=== PATIENT | female | born 1950 | race Caucasian/White ===

== ENCOUNTER 2016-06-22 11:19 | Inpatient (IN) | payer OTHER, MEDICARE ==
[~2016-06-22] VITALS: Ht 167.6 cm; Wt 110.0 kg
[2016-06-22] VITALS (9 sets, daily range): BP systolic 89–136; BP diastolic 58–70; PULSE 68–92; RESP 16–18; TEMP 98.3–98.7; O2SAT 92–96
[~2016-06-22 11:19] MED LIST: CLIN150 PO; METH40TA9 PO
[2016-06-22] MEDS ORDERED: CLINDAMYCIN INJ 600 MG in SODIUM CHLORIDE 0.9% INJ 100 ML IV ONE (12:00)
[2016-06-22] MEDS ORDERED: SODIUM CHLORID 0.9% 500 ML INJ 500 ML IV ONE (12:00)
[2016-06-22] MEDS ORDERED: METH40TA PO (12:06)
[2016-06-22] MEDS ORDERED: AMLO5TAB2 PO (12:06)
[2016-06-22] MEDS ORDERED: DOXY100C PO (12:06)
--- NOTE | 2016-06-22 12:09 | PD ---
HPI Chief Complaint: Complaint Time Seen by Provider: 11:47 Travel History International Travel<30 days: No Contact w/Intl Traveler<30days: No Traveled to known affect area: No History of Present Illness HPI The patient is a 66-year-old female who presents emergency department for multiple complaints. The patient notes multiple skin lesions or last several weeks with one on the lateral aspect of the right breast. She now notes surrounding erythema and redness. The patient was seen by her primary physician and placed on antibiotics. The patient states the redness is not gotten worse, has slightly improved, but is still persistent. She denies any drainage from the wound of the lateral aspect of the right breast. She also complains of dysuria and suprapubic discomfort over the last 24 hours. She does have a history of bladder prolapse and has been referred to see a urologist. However, she does complain of suprapubic discomfort, dysuria, frequency, and urgency. The patient denies any fever, chills, or sweats. The patient's primary physician is Dr. Christian Contreras. [facility] Past Medical History Anxiety: Yes Depression: Yes Cardiovascular Problems: Yes (htn on meds) Diminished Hearing: No Hypertension: Yes Tetanus Vaccination: Unknown Influenza Vaccination: No ?: Not Past Surgical History Hysterectomy: Yes Tonsillectomy: Yes Social History Alcohol Use: No Tobacco Use: Yes (1 PPD) Substance Use: No Allergies-Medications (Allergen,Severity, Reaction): Coded Allergies: No Known Allergies (Verified , 06/22/16) Reported Meds & Prescriptions Reported Meds & Active Scripts Active Reported Doxycycline Hyclate 100 Mg Cap 100 Mg PO DIRECTED Amlodipine (Amlodipine Besylate) 5 Mg Tab 5 Mg PO DAILY Methadone (Methadone HCl) 40 Mg Tab 110 Mg PO DAILY Review of Systems Except as stated in HPI: all other systems reviewed are Neg General / Constitutional: No: Fever Cardiovascular: No: Chest Pain or Discomfort Respiratory: No: Shortness of Breath Gastrointestinal: No: Nausea, Vomiting Genitourinary: Positive: Urgency, Frequency, Dysuria, Pelvic Pain (suprapubic discomfort) Skin: Positive Other (as noted in history of present illness) Physical Exam Narrative GENERAL: Awake, alert, 66-year-old female who appears her stated age and is in no acute respiratory distress. SKIN: Multiple impetigo-like lesions on the arms and legs bilaterally. HEAD: Atraumatic. Normocephalic. EYES: No injection or drainage. ENT: No nasal bleeding or discharge. Poor dentition. NECK: Trachea midline. No JVD. CARDIOVASCULAR: Regular rate and rhythm. No murmur appreciated. Heart rate in the 90s. RESPIRATORY: No accessory muscle use. Clear to auscultation. Breath sounds equal bilaterally. Breast: The exam was performed in the presence of a female nurse. Patient has erythema over the lateral aspect the right breast with erythema that spreads at the medial aspect of the right arm. Mild induration but no focal abscess palpated. GASTROINTESTINAL: Abdomen soft, mild suprapubic tenderness. MUSCULOSKELETAL: No obvious deformities. No clubbing. No cyanosis. No edema. NEUROLOGICAL: Awake and alert. No obvious cranial nerve deficits. Motor grossly within normal limits. Normal speech. PSYCHIATRIC: Appropriate mood and affect; insight and judgment normal. Data Data Last Documented VS Vital Signs Date Time Temp Pulse Resp B/P Pulse Ox O2 Delivery O2 Flow Rate FiO2 06/22/16 11:35 98.7 92 16 126/64 96 Orders Complete Blood Count With Diff (06/22/16 11:55) Comprehensive Metabolic Panel (06/22/16 11:55) Blood Culture (06/22/16 11:55) Lactic Acid (06/22/16 11:55) Urinalysis - C+S If Indicated (06/22/16 11:55) Clindamycin Inj (Cleocin Inj) (06/22/16 12:00) Sodium Chlorid 0.9% 500 Ml Inj (Ns 500 M (06/22/16 12:00) Us Breast Unilateral (06/22/16 ) Piperacil-Tazo 2.25 Gm Premix (Zosyn 2.2 (06/22/16 14:00) Vancomycin Inj (Vancomycin Inj) (06/22/16 14:00) Sodium Chlor 0.9% 1000 Ml Inj (Ns 1000 M (06/22/16 14:00) Sodium Chlor 0.9% 1000 Ml Inj (Ns 1000 M (06/22/16 14:00) Admit Order (Ed Use Only) (06/22/16 14:27) Urinary Catheter Insert/Apply (06/22/16 14:27) Labs Laboratory Tests Test 06/22/16 12:15 White Blood Count 33.5 TH/MM3 Red Blood Count 3.82 MIL/MM3 Hemoglobin 11.4 GM/DL Hematocrit 33.4 % Mean Corpuscular Volume 87.3 FL Mean Corpuscular Hemoglobin 29.8 PG Mean Corpuscular Hemoglobin 34.1 % Concent Red Cell Distribution Width 15.0 % Platelet Count 399 TH/MM3 Mean Platelet Volume 7.7 FL Neutrophils (%) (Auto) % Lymphocytes (%) (Auto) % Monocytes (%) (Auto) % Eosinophils (%) (Auto) % Basophils (%) (Auto) % Neutrophils # (Auto) TH/MM3 Lymphocytes # (Auto) TH/MM3 Monocytes # (Auto) TH/MM3 Eosinophils # (Auto) TH/MM3 Basophils # (Auto) TH/MM3 CBC Comment AUTO DIFF Differential Total Cells 100 Counted Neutrophils % (Manual) 78 % Band Neutrophils % 13 % Lymphocytes % 3 % Monocytes % 4 % Neutrophils # (Manual) 31.2 TH/MM3 Metamyelocytes 2 % Differential Comment FINAL DIFF MANUAL Platelet Estimate NORMAL Platelet Morphology Comment NORMAL Sodium Level 135 MEQ/L Potassium Level 3.2 MEQ/L Chloride Level 96 MEQ/L Carbon Dioxide Level 24.6 MEQ/L Anion Gap 14 MEQ/L Blood Urea Nitrogen 68 MG/DL Creatinine 4.00 MG/DL Estimat Glomerular Filtration 11 ML/MIN Rate Random Glucose 82 MG/DL Lactic Acid Level 0.9 mmol/L Calcium Level 8.4 MG/DL Total Bilirubin 1.1 MG/DL Aspartate Amino Transf 17 U/L (AST/SGOT) Alanine Aminotransferase 25 U/L (ALT/SGPT) Alkaline Phosphatase 195 U/L Total Protein 7.3 GM/DL Albumin 2.5 GM/DL MDM Medical Decision Making Medical Screen Exam Complete: Yes Emergency Medical Condition: Yes Medical Record Reviewed: Yes Interpretation(s) Last Impressions Breast Ultrasound 06/22/16 0000 Signed Impressions: Service Date/Time: June 13:18 - CONCLUSION: 1. Phlegmonous mass in the right breast associated with edema and inflammation. No drainable fluid collections. Dillon Sharma MD Laboratory Tests Test 06/22/16 12:15 White Blood Count 33.5 TH/MM3 Red Blood Count 3.82 MIL/MM3 Hemoglobin 11.4 GM/DL Hematocrit 33.4 % Mean Corpuscular Volume 87.3 FL Mean Corpuscular Hemoglobin 29.8 PG Mean Corpuscular Hemoglobin 34.1 % Concent Red Cell Distribution Width 15.0 % Platelet Count 399 TH/MM3 Mean Platelet Volume 7.7 FL Neutrophils (%) (Auto) % Lymphocytes (%) (Auto) % Monocytes (%) (Auto) % Eosinophils (%) (Auto) % Basophils (%) (Auto) % Neutrophils # (Auto) TH/MM3 Lymphocytes # (Auto) TH/MM3 Monocytes # (Auto) TH/MM3 Eosinophils # (Auto) TH/MM3 Basophils # (Auto) TH/MM3 CBC Comment AUTO DIFF Differential Total Cells 100 Counted Neutrophils % (Manual) 78 % Band Neutrophils % 13 % Lymphocytes % 3 % Monocytes % 4 % Neutrophils # (Manual) 31.2 TH/MM3 Metamyelocytes 2 % Differential Comment FINAL DIFF MANUAL Platelet Estimate NORMAL Platelet Morphology Comment NORMAL Sodium Level 135 MEQ/L Potassium Level 3.2 MEQ/L Chloride Level 96 MEQ/L Carbon Dioxide Level 24.6 MEQ/L Anion Gap 14 MEQ/L Blood Urea Nitrogen 68 MG/DL Creatinine 4.00 MG/DL Estimat Glomerular Filtration 11 ML/MIN Rate Random Glucose 82 MG/DL Lactic Acid Level 0.9 mmol/L Calcium Level 8.4 MG/DL Total Bilirubin 1.1 MG/DL Aspartate Amino Transf 17 U/L (AST/SGOT) Alanine Aminotransferase 25 U/L (ALT/SGPT) Alkaline Phosphatase 195 U/L Total Protein 7.3 GM/DL Albumin 2.5 GM/DL Differential Diagnosis Differential diagnosis includes cellulitis, abscess, failed outpatient therapy, UTI, chronic bladder prolapse, sepsis. Narrative Course IV was established, labs are drawn and sent, and the patient was placed on cardiac telemetry monitoring and continuous pulse oximetry monitoring. Ultrasound of the breast was ordered to evaluate for abscess. The patient was administered clindamycin 600 mg intravenously after blood cultures and lactic acid were sent to lab. UA was sent to lab. The patient's white count is elevated 33.5, creatinine is elevated at 4.0, heart rate was greater than 90, consistent with severe sepsis. I have no baseline creatinine for the patient on EMR. The patient states her kidney dysfunction started approximately 2 weeks ago but does not know her baseline creatinine. She denies any previous history of kidney disorders. As the patient does have sepsis with skin infection, she was covered with Zosyn and vancomycin as well. The patient has sepsis, will be admitted to the intensive care unit for evaluation of the next 24-48 hours. Therefore, the on-call metal riveter was paged. The Vanco was dosed as 1 g, a trough to be ordered after dosing. Zosyn was renally dosed at 2.25 as patient has elevated creatinine of 4.0. The patient will be admitted to the intensive care unit to evaluate the progression of her sepsis and/or infection. Sepsis Criteria SIRS Criteria (2 or more): Heart rate over 90, WBC > 79661, < 4000 or > 10% bands Sepsis Criteria (SIRS+source): Infect source susp/known Severe Sepsis (+one): Organ Dysfunction Criteria Outcome: Meets severe sepsis criteria Physician Communication Physician Communication I discussed the patient with the metal riveter, Dr. Bowling, who states the patient can be admitted to the medical service in the intensive care unit. The patient has [employer], [facility] I discussed the patient Dr. Youngblood who agrees with admission. Diagnosis Primary Impression: Cellulitis of female breast Additional Impressions: Severe sepsis Acute renal failure Qualified Code: N17.9 - Acute renal failure, unspecified acute renal failure type Condition: Serious Andrez Gallagher MD Jun 22, 2016 12:09
[2016-06-22 12:20] LABS: HEMATOCRIT 33.4 % (35.0-46.0); MEAN CELL VOLUME 87.3 FL (80.0-100.0); MEAN CORPUSCULAR HEMOGLOBIN 29.8 PG (27.0-34.0); MEAN CORPUSCULAR HGB CONC 34.1 % (32.0-36.0); PLATELET COUNT 399 TH/MM3 (150-450); RED BLOOD COUNT 3.82 MIL/MM3 (4.00-5.30); WHITE BLOOD COUNT 33.5 TH/MM3 (4.0-11.0)
[2016-06-22 12:26] LABS: HEMO FLAGS AUTO DIFF
[2016-06-22 12:28] LABS: CHLORIDE 96 MEQ/L (98-107); POTASSIUM 3.2 MEQ/L (3.5-5.1); SODIUM (NA) 135 MEQ/L (136-145)
[2016-06-22 12:32] LABS: ANION GAP 14 MEQ/L (5-15); BICARBONATE 24.6 MEQ/L (21.0-32.0); BLOOD UREA NITROGEN 68 MG/DL (7-18)
[2016-06-22 12:35] LABS: ALT (GPT) 25 U/L (10-53); AST (GOT) 17 U/L (15-37); GLOMERULAR FILTRATION RATE 11 ML/MIN (>89)
[2016-06-22 12:36] LABS: TOTAL BILIRUBIN ADULT 1.1 MG/DL (0.2-1.0)
[2016-06-22 12:37] LABS: ALKALINE PHOSPHATASE 195 U/L (45-117)
[2016-06-22 12:43] LABS: BANDS 13 % (0-6); METAMYELOCYTES 2 % (0-1); NEUTROPHIL # MANUAL DIFF 31.2 TH/MM3 (1.8-7.7); PLATELET ESTIMATE SMEAR NORMAL (NORMAL); PLATELET MORPHOLOGY NORMAL (NORMAL); POLYS (SEG NEUTROPHILS) 78 % (16-70); SCAN/DIFF FINAL DIFF MANUAL; WBC DIFF SAMPLE 100
--- NOTE | 2016-06-22 13:46 | RADHPO ---
EXAM DATE/TIME: 06/22/2016 13:18 [facility] COMPARISON: No previous studies available for comparison. INDICATIONS : Right breast redness. MEDICAL HISTORY : Hypertension. SURGICAL HISTORY : Tonsillectomy. Hysterectomy. ENCOUNTER: Initial ACUITY: 3 weeks PAIN SCORE: 1/10 LOCATION: Right breast. FINDINGS: There is a hypoechoic area in the right breast at the 10: 00 position 8 cm from the nipple in an area of redness and open sore measuring about 2.6 x 0.9 x 1.2 cm most characteristic of a phlegmonous mass. There is soft tissue edema. No drainable fluid collecti ons or discrete abscesses are identified. CONCLUSION: 1. Phlegmonous mass in the right breast associated with edema and inflammation. No drainable fluid co llections. Dillon Sharma MD on June 22, 2016 at 13:43 Board Certified Radiologist. This report was verified electronically.
[2016-06-22] MEDS ORDERED: PIPERACIL-TAZO 2.25 GM PREMIX 50 ML IV ONE (14:00)
[2016-06-22] MEDS ORDERED: VANCOMYCIN INJ 1,000 MG in SODIUM CHLOR 0.9% 250 ML INJ 250 ML IV ONE (14:00)
[2016-06-22] MEDS ORDERED: SODIUM CHLOR 0.9% 1000 ML INJ 1,000 ML IV ONE ×2 (14:00)
[2016-06-22 14:41] LABS: BLOOD, URINE MOD (NEG); GLUCOSE,URINE NEG (NEG); KETONE, URINE NEG (NEG); NITRITE,URINE POS (NEG)
[2016-06-22 14:46] LABS: BACTERIA, URINE MANY /hpf; COMMENT (UR) CATH-CULTURE IND; CULTURE IF INDICATED CATH CULTURE IND; METHOD OF COLLECTION CATH; URINE COLOR YELLOW (YELLW/STRAW); WBC, URINE INNUM /hpf (0-5)
[2016-06-22] MEDS ORDERED: MAGNESIUM HYDROXIDE SUSP 30 ML CUP PO PRN (15:15)
[2016-06-22] MEDS ORDERED: Vancomycin Consult Pharmacy 1 EA XX SCH (15:15)
[2016-06-22] MEDS ORDERED: POTASSIUM CHLORIDE 10 MEQ CONTROLLED RELEASE TAB PO ONE (15:15)
[2016-06-22] MEDS ORDERED: SODIUM CHLORIDE 0.9% FLUSH 5 ML FLUSH FLUSH PRN (15:15)
[2016-06-22] MEDS ORDERED: NALOXONE HCL 0.4 MG/ML AMP IV PRN (15:15)
--- NOTE | 2016-06-22 15:15 | HHI.HP ---
[facility] Service [facility] Primary Care Physician Christian Contreras MD Admission Diagnosis severe sepsis, right breast cellulitis, acute renal failure Diagnoses: Travel History International Travel<30 Days: No Contact w/Intl Traveler <30 Da: No Traveled to Known Affected Are: No History of Present Illness This is a 66 year-old female with past medical history of hypertension and chronic kidney disease who presents to the ER today complaining of right axilla infection which started last week. She went to go see her primary care provider Dr. Contreras who prescribed her doxycycline. However the redness and pain began to spread. She denies noting any fever or chills. The patient states she had not seen a primary care physician for years until she recently established with Dr. Contreras. He diagnosed her with hypertension and chronic kidney disease. She is not sure what her baseline creatinine is but states that she was told "3." The patient does note that she has been urinating less frequently over the past several days. She denies dysuria. The patient does take methadone 110 mg daily which she gets at the methadone clinic. She is on this for treatment of her previous pain pill addiction. She denies history of injecting IV drugs. In the emergency department she was found to have a white blood cell count of 30 ,000 with left shift. She underwent an ultrasound of the right breast which showed a phlegmonous mass associated with edema and inflammation but no drainable fluid collections. She was afebrile and not tachycardic. Lactic acid was not elevated. Review of Systems Constitutional: DENIES: Fever, Chills Ears, nose, mouth, throat: DENIES: Throat pain, Hoarseness Respiratory: DENIES: Cough, Shortness of breath Cardiovascular: DENIES: Chest pain, Palpitations Gastrointestinal: DENIES: Abdominal pain, Vomiting Genitourinary: DENIES: Hematuria, Dysuria Integumentary: DENIES: Rash Hematologic/lymphatic: DENIES: Lymphadenopathy Immunologic/allergic: DENIES: Eczema Neurologic: DENIES: Abnormal gait, Headache Psychiatric: DENIES: Anxiety, Confusion Past Family Social History Past Medical History Hypertension Chronic kidney disease History of opioid addiction on methadone maintenance therapy Reported Medications Allergies Coded Allergies Type Severity Reaction Last Updated Verified No Known Allergies 06/22/16 Yes Active Scripts Medications Dose Route/Sig Days Date Category Amlodipine (Amlodipine Besylate) 5 Mg Tab 5 Mg PO DAILY 06/22/16 Reported Methadone (Methadone HCl) 40 Mg Tab 110 Mg PO DAILY 06/22/16 Reported Allergies: Coded Allergies: No Known Allergies (Verified , 06/22/16) Family History Reviewed and noncontributory Social History The patient is a [id number] history tobacco denies alcohol use. Physical Exam Vital Signs Vital Signs Date Time Temp Pulse Resp B/P Pulse Ox O2 Delivery O2 Flow Rate FiO2 06/22/16 14:47 88 17 127/62 93 Room Air 06/22/16 11:35 98.7 92 16 126/64 96 Physical Exam GENERAL: Well-nourished, well-developed female in no apparent distress who is somewhat unkempt with poor hygiene of her nails. SKIN: Warm and dry. The patient has a large area of induration lateral to her right breast extending into the axilla with surrounding cellulitic change. HEAD: Normocephalic. EYES: No scleral icterus. No injection or drainage. NECK: Supple, trachea midline. No JVD or lymphadenopathy. CARDIOVASCULAR: Regular rate and rhythm without murmurs, gallops, or rubs. RESPIRATORY: Breath sounds equal bilaterally. No accessory muscle use. GASTROINTESTINAL: Abdomen soft, non-tender, nondistended. EXTREMITIES: No cyanosis, or edema. NEUROLOGICAL: Awake, alert, and oriented x 3. Non-focal. Laboratory Laboratory Tests Test 06/22/16 06/22/16 12:15 14:32 White Blood Count 33.5 Red Blood Count 3.82 Hemoglobin 11.4 Hematocrit 33.4 Mean Corpuscular Volume 87.3 Mean Corpuscular Hemoglobin 29.8 Mean Corpuscular Hemoglobin 34.1 Concent Red Cell Distribution Width 15.0 Platelet Count 399 Mean Platelet Volume 7.7 Neutrophils (%) (Auto) Lymphocytes (%) (Auto) Monocytes (%) (Auto) Eosinophils (%) (Auto) Basophils (%) (Auto) Neutrophils # (Auto) Lymphocytes # (Auto) Monocytes # (Auto) Eosinophils # (Auto) Basophils # (Auto) CBC Comment AUTO DIFF Differential Total Cells 100 Counted Neutrophils % (Manual) 78 Band Neutrophils % 13 Lymphocytes % 3 Monocytes % 4 Neutrophils # (Manual) 31.2 Metamyelocytes 2 Differential Comment FINAL DIFF MANUAL Platelet Estimate NORMAL Platelet Morphology Comment NORMAL Sodium Level 135 Potassium Level 3.2 Chloride Level 96 Carbon Dioxide Level 24.6 Anion Gap 14 Blood Urea Nitrogen 68 Creatinine 4.00 Estimat Glomerular Filtration 11 Rate Random Glucose 82 Lactic Acid Level 0.9 Calcium Level 8.4 Total Bilirubin 1.1 Aspartate Amino Transf 17 (AST/SGOT) Alanine Aminotransferase 25 (ALT/SGPT) Alkaline Phosphatase 195 Total Protein 7.3 Albumin 2.5 Urine Collection Type CATH Urine Color YELLOW Urine Turbidity CLEAR Urine pH 6.0 Urine Specific [place] 1.012 Urine Protein TRACE Urine Glucose (UA) NEG Urine Ketones NEG Urine Occult Blood MOD Urine Nitrite POS Urine Bilirubin NEG Urine Leukocyte Esterase LARGE Urine RBC 20-24 Urine WBC INNUM Urine Bacteria MANY Microscopic Urinalysis Comment CATH-CULTURE IND Urine Collection Time 14:32 Date/Time Procedure Status Source Growth 06/22/16 14:32 Urine Culture Received Urine Catheterized Urine Pending 06/22/16 12:15 Aerobic Blood Culture Received Blood Peripheral Pending 06/22/16 12:15 Anaerobic Blood Culture Received Blood Peripheral Pending Result Diagram: 06/22/16 1215 06/22/16 1215 Imaging Last Impressions Breast Ultrasound 06/22/16 0000 Signed Impressions: Service Date/Time: June 13:18 - CONCLUSION: 1. Phlegmonous mass in the right breast associated with edema and inflammation. No drainable fluid collections. Dillon Sharma MD Assessment and Plan Problem List: (1) Cellulitis of female breast ICD Code: N61.0 Status: Acute (2) Acute renal failure ICD Code: N17.9 Status: Acute (3) Phlegmonous cellulitis ICD Code: L02.91 Status: Acute Assessment and Plan -Large developing abscess with cellulitis of the left breast and axilla. Currently ultrasound shows phlegmon but no drainable fluid collections. However I have no doubt that this will continue develop into an abscess. We'll continue broad-spectrum IV antibiotics of vancomycin and Zosyn. She will need surgical consultation for evaluation of debridement. We'll follow-up blood cultures. If any drainage occurs will check wound cultures. -Acute renal failure on top of chronic kidney disease. Unknown baseline creatinine. We'll place a Cárdenas in continue IV fluids normal saline at a rate of 125 mL per hour. Check kidney ultrasound. Consult nephrology. I've requested records from her PCPs office. -Hypertension - resume Norvasc. -UTI. Continue Zosyn. Follow-up urine culture. -History of opioid addiction on methadone maintenance therapy, denies any history of IV drug abuse. We'll resume her home methadone dose which I have asked the ED nurse to confirm with the methadone clinic. -Hypokalemia. Replete. -Tobacco use. Cessation recommended. -DVT prophylaxis with Lovenox. Problem Qualifiers (1) Acute renal failure: Qualified Code: N17.9 - Acute renal failure, unspecified acute renal failure type Marta Youngblood MD Jun 22, 2016 15:14
[2016-06-22] MEDS: SODIUM CHLOR 0.9% 1000 ML INJ 1,000 ML IV SCH ×2 (16:07→23:15)
[2016-06-22] MEDS: ENOXAPARIN SODIUM 30 MG/0.3 ML SYRINGE SQ SCH (16:08)
[2016-06-22] MEDS: DOCUSATE SODIUM 100 MG CAP PO SCH (16:08)
[2016-06-22] MEDS: SODIUM CHLORIDE 0.9% FLUSH 5 ML FLUSH FLUSH SCH (21:00)
[2016-06-22] MEDS ORDERED: CHLORHEXIDINE GLUCONATE 2 % 1 PACK (2 CLOTHS)(extra cloths) TOP PRN (22:00)
[2016-06-22] MEDS: PIPERACIL-TAZO 2.25 GM PREMIX 50 ML IV SCH (22:33)
[2016-06-23] VITALS (17 sets, daily range): BP systolic 96–144; BP diastolic 58–81; PULSE 64–94; RESP 18–21; TEMP 97.8–98.8; O2SAT 92–98
[2016-06-23] MEDS: CHLORHEXIDINE GLUCONATE 2 % 1 PACK (2 CLOTHS)(taper/protocol) TOP SCH (04:00)
[2016-06-23] MEDS: DOCUSATE SODIUM 100 MG CAP PO SCH ×2 (04:18→16:08)
[2016-06-23 04:44] LABS: AUTOMATED NEUTROPHIL # 27.2 TH/MM3 (1.8-7.7); BASOPHIL % 0.1 % (0.0-2.0); EOSINOPHIL # 0.2 TH/MM3 (0-0.4); EOSINOPHIL % 0.8 % (0.0-4.0); HEMATOCRIT 31.9 % (35.0-46.0); LYMPH % 3.1 % (9.0-44.0); LYMPHOCYTE # 0.9 TH/MM3 (1.0-4.8); MEAN CELL VOLUME 88.8 FL (80.0-100.0); MEAN CORPUSCULAR HEMOGLOBIN 29.8 PG (27.0-34.0); MEAN CORPUSCULAR HGB CONC 33.5 % (32.0-36.0); MONO % 6.1 % (0.0-8.0); NEUT % 89.9 % (16.0-70.0); PLATELET COUNT 370 TH/MM3 (150-450); RED BLOOD COUNT 3.59 MIL/MM3 (4.00-5.30); RED CELL DISTRIBUTION WIDTH 15.3 % (11.6-17.2); WHITE BLOOD COUNT 30.1 TH/MM3 (4.0-11.0)
[2016-06-23 04:46] LABS: HEMO FLAGS AUTO DIFF
[2016-06-23 04:55] LABS: POTASSIUM 3.5 MEQ/L (3.5-5.1)
[2016-06-23 05:03] LABS: BICARBONATE 21.4 MEQ/L (21.0-32.0)
[2016-06-23 05:07] LABS: BANDS 14 % (0-6); NEUTROPHIL # MANUAL DIFF 27.1 TH/MM3 (1.8-7.7); POLYS (SEG NEUTROPHILS) 76 % (16-70); WBC DIFF SAMPLE 100
[2016-06-23 05:08] LABS: PLATELET ESTIMATE SMEAR NORMAL (NORMAL); PLATELET MORPHOLOGY NORMAL (NORMAL); SCAN/DIFF FINAL DIFF MANUAL
[2016-06-23] MEDS: PIPERACIL-TAZO 2.25 GM PREMIX 50 ML IV SCH ×3 (05:56→19:38)
[2016-06-23] MEDS: amLODIPine BESYLATE 5 MG TAB PO SCH (09:02)
[2016-06-23] MEDS: METHADONE HCL 10 MG TAB PO SCH (09:03)
[2016-06-23] MEDS: SODIUM CHLORIDE 0.9% FLUSH 5 ML FLUSH FLUSH SCH ×2 (09:04→19:39)
[2016-06-23] MEDS: SODIUM CHLOR 0.9% 1000 ML INJ 1,000 ML IV SCH ×2 (09:04→16:08)
--- NOTE | 2016-06-23 09:24 | HHI.PR ---
Subjective Remarks Patient seen and examined today with Dr. Youngblood, patient states that she is feeling better. She is concerned about her kidneys. She states that she did have recent laboratory studies performed in those were the only abnormalities were kidney functions. Patient indicates that the right breast redness and pain are improving Objective Vitals Vital Signs Date Time Temp Pulse Resp B/P Pulse Ox O2 Delivery O2 Flow Rate FiO2 06/23/16 06:00 75 20 119/65 95 06/23/16 06:00 74 06/23/16 05:00 72 20 112/59 95 06/23/16 05:00 72 06/23/16 04:00 67 06/23/16 04:00 97.8 76 18 144/65 95 06/23/16 03:00 72 06/23/16 03:00 76 18 121/66 94 06/23/16 02:00 74 18 119/67 94 06/23/16 02:00 74 06/23/16 01:00 67 06/23/16 01:00 64 18 96/58 95 06/23/16 00:00 66 06/23/16 00:00 98.6 66 18 100/58 98 06/22/16 23:00 70 06/22/16 23:00 70 18 89/70 95 06/22/16 22:00 68 18 117/63 95 06/22/16 22:00 68 06/22/16 21:00 Nasal Cannula 4.00 06/22/16 21:00 74 06/22/16 21:00 74 18 124/62 93 06/22/16 20:13 93 Nasal Cannula 2.00 06/22/16 20:00 98.3 77 18 129/62 92 06/22/16 20:00 81 06/22/16 19:45 85 20 92 2 06/22/16 19:10 82 18 131/58 92 Nasal Cannula 2 06/22/16 17:17 98.4 88 17 136/64 92 Nasal Cannula 2 06/22/16 14:47 88 17 127/62 93 Room Air 06/22/16 11:35 98.7 92 16 126/64 96 I/O 06/22/16 06/22/16 06/22/16 06/23/16 06/23/16 06/23/16 07:00 15:00 23:00 07:00 15:00 23:00 Intake Total 585 ml 1170 ml Output Total 1075 ml 250 ml Balance -490 ml 920 ml Intake Oral 240 ml 360 ml IV Total 345 ml 810 ml Output Urine Total 1075 ml 250 ml # Voids 0 # Bowel Movements 0 1 Result Diagram: 06/23/1642506/23/16425 Objective Remarks GENERAL: Well-developed, well-nourished, in no acute distress. alert and orientated HEENT: Head is normocephalic without any lesions or masses noted. Facial features are symmetric. Eyes: Extraocular muscles are intact. Conjunctivae were clear. NECK: Supple without any masses. Trachea midline no deviation. No JVD, CARDIAC: Regular rhythm, regular rate. S1/S2 are heard. No murmurs gallops or rubs. LUNGS: Clear to auscultation bilaterally. No wheeze, rhonchi or rales. No use of accessory muscles on inspiration or expiration. ABDOMEN: Soft, nontender. Nondistended. Bowel sounds heard in all 4 quadrants. No organomegaly or masses. Negative rebound, negative guarding EXTREMITIES: No edema, pulses are equal bilaterally. No cyanosis or clubbing NEUROLOGY: Mood and affect appear appropriate. Cranial nerves II through XII grossly intact. Moving all extremities, speech is clear RIGHT BREAST: Patient still have significant erythema, mainly tissue. However erythema is receding from the previously marked line Urinary Catheter: Yes Assessment to: Continue Cárdenas insert reason: Measure Accurate Output Vascular Central Line Catheter: No A/P Assessment and Plan -Sepsis: Patient met criteria on admission with leukocytosis, tachycardia, right breast cellulitis and urine tract infection. Cultures are pending at this time, continue to follow cultures. Patient started on vancomycin and Zosyn. -Large developing abscess with cellulitis of the left breast and axilla. Currently ultrasound shows phlegmon but no drainable fluid collections. However there is no doubt that this will continue develop into an abscess. continue broad-spectrum IV antibiotics of vancomycin and Zosyn. Surgical consultation has been requested. Patient will plan to be transferred to [facility] for surgical intervention. If any drainage occurs will check wound cultures. -Leukocytosis. Likely secondary to sepsis, infection. Continue monitor CBC -Acute renal failure on top of chronic kidney disease. Unknown baseline creatinine. Continue Cárdenas, continue IV fluids normal saline at a rate of 125 mL per hour. Renal ultrasound indicates bilateral hydronephrosis. Consulted urology, Consulted nephrology. I've requested records from her PCPs office. -Hypertension - resume Norvasc. -UTI. Continue Zosyn. Follow-up urine culture. -History of opioid addiction on methadone maintenance therapy, denies any history of IV drug abuse. resumed her home methadone dose which the ED nurse confirmed with the methadone clinic. -Hypokalemia. Continue monitor and replete as needed -Tobacco use. Cessation recommended. -DVT prophylaxis with Lovenox. Written by Julio Smith PA-C, acting as scribe for Dr. Youngblood on 06/23/16 at 1210. The documentation accurately reflects the work and decisions performed face-to- face by Dr. Youngblood on 06/23/16 at 1210. Julio Smith Jun 23, 2016 09:24
--- NOTE | 2016-06-23 09:32 | RADHPO ---
EXAM DATE/TIME: 06/23/2016 07:51 [facility] COMPARISON: No previous studies available for comparison. INDICATIONS : Increased BUN/Creatinine. MEDICAL HISTORY : Hypertension. Bladder prolapse. SURGICAL HISTORY : Tonsillectomy. Hysterectomy. ENCOUNTER: Initial ACUITY: 1 day PAIN SCORE: 0/10 LOCATION: Bilateral flank MEASUREMENTS: RIGHT KIDNEY: 13.7 x 7.3 x 6.7 cm LEFT KIDNEY: 14.0 x 6.7 x 6.5 cm FINDINGS: There is moderate bilateral hydronephrosis of unknown etiology. Kidneys mildly echogenic characterist ic of mild medical renal disease. No perinephric fluid collections. Bladder decompressed by Cárdenas. CONCLUSION: 1. Moderate bilateral hydronephrosis of unknown etiology. Cárdenas catheter present. Dillon Sharma MD on June 23, 2016 at 9:28 Board Certified Radiologist. This report was verified electronically.
[2016-06-23 12:53] LABS: AUTOMATED NEUTROPHIL # 25.7 TH/MM3 (1.8-7.7); BASOPHIL # 0.1 TH/MM3 (0-0.2); BASOPHIL % 0.4 % (0.0-2.0); EOSINOPHIL # 0.1 TH/MM3 (0-0.4); EOSINOPHIL % 0.4 % (0.0-4.0); LYMPHOCYTE # 0.9 TH/MM3 (1.0-4.8); MEAN CELL VOLUME 87.9 FL (80.0-100.0); MEAN CORPUSCULAR HEMOGLOBIN 29.3 PG (27.0-34.0); MEAN CORPUSCULAR HGB CONC 33.3 % (32.0-36.0); NEUT % 90.2 % (16.0-70.0); PLATELET COUNT 368 TH/MM3 (150-450); RED BLOOD COUNT 3.52 MIL/MM3 (4.00-5.30); RED CELL DISTRIBUTION WIDTH 15.8 % (11.6-17.2); WHITE BLOOD COUNT 28.5 TH/MM3 (4.0-11.0)
[2016-06-23 12:56] LABS: HEMO FLAGS AUTO DIFF
[2016-06-23 13:21] LABS: BANDS 18 % (0-6); EOSINOPHILS 1 % (0-4); METAMYELOCYTES 2 % (0-1); NEUTROPHIL # MANUAL DIFF 26.2 TH/MM3 (1.8-7.7); PLATELET ESTIMATE SMEAR NORMAL (NORMAL); PLATELET MORPHOLOGY NORMAL (NORMAL); POLYS (SEG NEUTROPHILS) 72 % (16-70); SCAN/DIFF FINAL DIFF MANUAL; WBC DIFF SAMPLE 100
--- NOTE | 2016-06-23 14:43 | RADHPO ---
EXAM DATE/TIME: 06/23/2016 14:20 [place] COMPARISON: US KIDNEY/RENAL/BLADDER, June 23, 2016, 7:51. INDICATIONS : Bilateral hydronephrosis. Lower abdominal pressure. ORAL CONTRAST: No oral contrast ingested. RADIATION DOSE: 20.81 CTDIvol (mGy) MEDICAL HISTORY : Hypertension. Cardiovascular disease Bladder prolapse. SURGICAL HISTORY : Hysterectomy. ENCOUNTER: Initial ACUITY: 2 days PAIN SCALE: 2/10 LOCATION: Bilateral lower quadrant TECHNIQUE: Volumetric scanning of the abdomen and pelvis was performed. Using automated exposure control and ad justment of the mA and/or kV according to patient size, radiation dose was kept as low as reasonably achievable to obtain optimal diagnostic quality images. FINDINGS: LOWER LUNGS: Mild bibasilar atelectasis LIVER: Homogeneous density without lesion. There is no dilation of the biliary tree. Tiny dependent calcifi ed gallstones. SPLEEN: Normal size without lesion. PANCREAS: Within normal limits. KIDNEYS: Severe bilateral hydronephrosis and hydroureter. Ureteral dilatation extends down into the pelvis whe re the ureters appear to be entrapped in a pelvic floor prolapse/hernia. ADRENAL GLANDS: Within normal limits. VASCULAR: There is no aortic aneurysm. BOWEL/MESENTERY: The stomach, small bowel, and colon demonstrate no acute abnormality. There is no free intraperitone al air or fluid. The rectum loops down into a pelvic floor prolapse/hernia. ABDOMINAL WALL: Within normal limits. RETROPERITONEUM: There is no lymphadenopathy. BLADDER: Cárdenas catheter present in a decompressed urinary bladder. REPRODUCTIVE: Uterus is surgically absent. INGUINAL: There is no lymphadenopathy or hernia. MUSCULOSKELETAL: Within normal limits for patient age. CONCLUSION: Severe bilateral hydronephrosis and hydroureter which appears to relate to entrapment of the distal u reters in a pelvic floor relapse/hernia which also contains a loop of the rectum. Franko Paez MD on June 23, 2016 at 14:34 Board Certified Radiologist. This report was verified electronically.
[2016-06-23] MEDS: ENOXAPARIN SODIUM 30 MG/0.3 ML SYRINGE SQ SCH (16:08)
--- NOTE | 2016-06-23 16:41 | PD.CONS ---
HPI Service Nephrology Consult Requested By Dr. Youngblood Reason for Consult [facility]AN Primary Care Physician Christian Contreras MD History of Present Illness The patient is a 66 yo [place] female who presented to the ED in [place] 06/22/16 after an axillary infection got worse. She recently started seeing a primary care physician for the first time in many years and was given Doxycyline within the past week for this infection. She also mentions that she was told that she had a decline in her renal functions at that visit, but she is not sure how dysfunctional. Her PMHx is limited as she admits that she was not taking care of herself within the past several years, but states hypertension that she was recently started on medication for (not sure of name). On admission, her SCr was reported at 4.00 that has worsened to 4.10 at time of consult. Renal US was done that showed a moderate bilateral hydronephrosis. The patient admits that she has been taking Aleve everyday at home for some years. No recent abx besides Doxycycline. She is not diabetic and denies any previous urological obstructions. Does mention that she has had a decrease in her urinary flow for the past several weeks. Had a hysterectomy in the past related to uterine fibroids. Denies any gynecological cancers. (Claudette Traylor) Review of Systems Constitutional: COMPLAINS OF: Fatigue (Claudette Traylor) Past Family Social History Allergies: Coded Allergies: No Known Allergies (Verified , 06/22/16) Past Medical History HTN ?CKD Previous opiate addiction for which she currently uses Methadone (denies IV drug use hx) Past Surgical History Hysterectomy related to uterine fibroids Reported Medications Reported Meds & Active Scripts Active Reported Amlodipine (Amlodipine Besylate) 5 Mg Tab 5 Mg PO DAILY Methadone (Methadone HCl) 40 Mg Tab 110 Mg PO DAILY Active Ordered Medications Current Medications Medications (Trade) Dose Ordered Sig/Elinor Route Start Time Stop Time Status Last Admin (NS 1000 ml Inj) 1,000 ml @ 125 mls/hr Q8H IV 06/22/16 15:15 06/23/16 09:04 (NS Flush) 2 ml UNSCH PRN FLUSH 06/22/16 15:15 (NS Flush) 2 ml BID FLUSH 06/22/16 21:00 06/23/16 09:04 (Tylenol) 650 mg Q4H PRN PO 06/22/16 15:15 (Colace) 100 mg Q12H PO 06/22/16 16:00 06/23/16 04:18 (Milk Of Magnesia Liq) 30 ml Q12H PRN PO 06/22/16 15:15 (Restoril) 15 mg HS PRN PO 06/22/16 15:15 (Lovenox Inj) 30 mg Q24H SQ 06/22/16 16:00 06/22/16 16:08 Naloxone HCl 0.4 mg 0.4 mg UNSCH PRN IV 06/22/16 15:15 Piperacillin Sod/ Tazobactam Sod 50 ml @ 100 mls/hr Q8HR IV 06/22/16 22:00 06/23/16 05:56 Pharmacy Profile Note 0 ml @ 0 mls/hr UNSCH XX 06/22/16 15:15 (Vancomycin Inj/ NS 250 ml Inj) 262 ml @ 250 mls/hr Q36H IV 06/24/16 02:00 Miscellaneous Information SPECIFIC LAB TO BE RYANNE... ONCE ONCE XX 06/27/16 01:45 06/27/16 01:46 (Norvasc) 5 mg DAILY PO 06/23/16 09:00 06/23/16 09:02 (Dolophine) 110 mg DAILY PO 06/23/16 09:00 06/23/16 09:03 Miscellaneous Information Patient in critical care unit? Ass... Q361D XX 06/22/16 22:00 06/22/16 22:00 (Chlorhexidine 2% Cloth) 3 pack DAILY@04 TOP 06/23/16 04:00 06/27/16 04:01 06/23/16 04:00 (Chlorhexidine 2% Cloth) 3 pack UNSCH PRN TOP 06/22/16 22:00 06/27/16 21:48 Family History Noncontributory Social History Smokes 1 ppd x50 years Denies any EtOH use Previous opiate user, but no current illicit drugs (Claudette Traylor) Physical Exam Vital Signs Vital Signs Date Time Temp Pulse Resp B/P Pulse Ox O2 Delivery O2 Flow Rate FiO2 06/23/16 14:00 79 06/23/16 13:00 77 06/23/16 12:00 98.7 76 21 119/65 95 06/23/16 12:00 76 06/23/16 11:00 94 06/23/16 10:00 78 06/23/16 09:00 72 06/23/16 08:00 98.8 80 18 131/70 92 06/23/16 08:00 80 06/23/16 07:00 98.8 77 20 134/81 97 06/23/16 07:00 77 06/23/16 06:00 75 20 119/65 95 06/23/16 06:00 74 06/23/16 05:00 72 20 112/59 95 06/23/16 05:00 72 06/23/16 04:00 67 06/23/16 04:00 97.8 76 18 144/65 95 06/23/16 03:00 72 06/23/16 03:00 76 18 121/66 94 06/23/16 02:00 74 18 119/67 94 06/23/16 02:00 74 06/23/16 01:00 67 06/23/16 01:00 64 18 96/58 95 06/23/16 00:00 66 06/23/16 00:00 98.6 66 18 100/58 98 06/22/16 23:00 70 06/22/16 23:00 70 18 89/70 95 06/22/16 22:00 68 18 117/63 95 06/22/16 22:00 68 06/22/16 21:00 Nasal Cannula 4.00 06/22/16 21:00 74 06/22/16 21:00 74 18 124/62 93 06/22/16 20:13 93 Nasal Cannula 2.00 06/22/16 20:00 98.3 77 18 129/62 92 06/22/16 20:00 81 06/22/16 19:45 85 20 92 2 06/22/16 19:10 82 18 131/58 92 Nasal Cannula 2 06/22/16 17:17 98.4 88 17 136/64 92 Nasal Cannula 2 Physical Exam GENERAL: NAD SKIN: Warm and dry. HEAD: Atraumatic. Normocephalic. EYES: Pupils equal and round. No scleral icterus. No injection or drainage. ENT: No nasal bleeding or discharge. Mucous membranes pink and moist. NECK: Trachea midline. No JVD. CARDIOVASCULAR: Regular rate and rhythm. RESPIRATORY: No accessory muscle use. Clear to auscultation. Breath sounds equal bilaterally. GASTROINTESTINAL: Abdomen soft, non-tender, nondistended. Hepatic and splenic margins not palpable. MUSCULOSKELETAL: Extremities without clubbing, cyanosis, or edema. No obvious deformities. NEUROLOGICAL: Awake and alert Normal speech. PSYCHIATRIC: Appropriate mood and affect; insight and judgment normal. Laboratory Laboratory Tests Test 06/22/16 06/23/16 06/23/16 21:08 04:26 12:40 Nasal Screen MRSA (PCR) NEGATIVE White Blood Count 30.1 28.5 Red Blood Count 3.59 3.52 Hemoglobin 10.7 10.3 Hematocrit 31.9 31.0 Mean Corpuscular Volume 88.8 87.9 Mean Corpuscular Hemoglobin 29.8 29.3 Mean Corpuscular Hemoglobin 33.5 33.3 Concent Red Cell Distribution Width 15.3 15.8 Platelet Count 370 368 Mean Platelet Volume 7.7 7.5 Neutrophils (%) (Auto) 89.9 90.2 Lymphocytes (%) (Auto) 3.1 3.0 Monocytes (%) (Auto) 6.1 6.0 Eosinophils (%) (Auto) 0.8 0.4 Basophils (%) (Auto) 0.1 0.4 Neutrophils # (Auto) 27.2 25.7 Lymphocytes # (Auto) 0.9 0.9 Monocytes # (Auto) 1.8 1.7 Eosinophils # (Auto) 0.2 0.1 Basophils # (Auto) 0.0 0.1 CBC Comment AUTO DIFF AUTO DIFF Differential Total Cells 100 100 Counted Neutrophils % (Manual) 76 72 Band Neutrophils % 14 18 Lymphocytes % 4 3 Monocytes % 6 4 Neutrophils # (Manual) 27.1 26.2 Differential Comment FINAL DIFF FINAL DIFF MANUAL MANUAL Platelet Estimate NORMAL NORMAL Platelet Morphology Comment NORMAL NORMAL Red Cell Morphology Comment NORMAL NORMAL Sodium Level 138 Potassium Level 3.5 Chloride Level 102 Carbon Dioxide Level 21.4 Anion Gap 15 Blood Urea Nitrogen 70 Creatinine 4.10 Estimat Glomerular Filtration 11 Rate Random Glucose 68 Calcium Level 7.6 Eosinophils % 1 Metamyelocytes 2 Date/Time Procedure Status Source Growth 06/22/16 14:32 Urine Culture - Preliminary Resulted Urine Catheterized Urine Gram Negative Lb 06/22/16 12:15 Aerobic Blood Culture - Preliminary Resulted Blood Peripheral NO GROWTH IN 1 DAY 06/22/16 12:15 Anaerobic Blood Culture - Preliminary Resulted Blood Peripheral NO GROWTH IN 1 DAY (Claudette Traylor) Result Diagram: 06/23/16 1240 06/23/16 0426 Imaging Last Impressions Renal Ultrasound 06/23/16 0000 Signed Impressions: Service Date/Time: Thursday, June 23, 2016 07:51 - CONCLUSION: 1. Moderate bilateral hydronephrosis of unknown etiology. Cárdenas catheter present. 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 Franko Paez MD Breast Ultrasound 06/22/16 0000 Signed Impressions: Service Date/Time: June 13:18 - CONCLUSION: 1. Phlegmonous mass in the right breast associated with edema and inflammation. No drainable fluid collections. Dillon Sharma MD (Claudette Traylor) Assessment and Plan Problem List: (1) Acute renal failure Plan: Potentially acute on chronic, but we are pending labs from her PCP. Acute renal failure is related to urinary obstruction. CT of the abdomen/pelvis was ordered STAT as well as a urological consultation. The patient had to be transferred to [facility] [place] scanner at [facility] was not functional at the time for a STAT reading. (exam and interview was performed at approximately 1130. This note is a late entry). CT read sourse of bilat hydro was ureter impingement from a pelvic floor prolapse with herniation of her bowel loops. I spoke to Dr. Lei (urology) on the phone twice (first time was prior to CT read and the 2nd was after). Given the herniation of her bowel and pelvic prolapse, general surgery has been consulted. Once the obstruction is corrected, the renal functions should improve. Dependent upon how long this hydronephrosis has been present, her renal functions may be chronically declined. We will follow along in the periphery. Please call if needed. (2) Hydronephrosis Plan: As above (3) Severe sepsis Plan: Mgmt as per ID (Claudette Traylor) Assessment and Plan Physical examination, evaluation and assessment reviewed and discussed with my PA. I was fully involved in the evaluation and plan of care this patient. Doctor Felipe. (Jacoby Wang MD) Problem Qualifiers (1) Acute renal failure: Qualified Code: N17.9 - Acute renal failure, unspecified acute renal failure type (2) Hydronephrosis: Qualified Code: N13.39 - Other hydronephrosis Claudette Traylor Jun 23, 2016 16:41 Jacoby Wang MD Jul 25, 2016 11:32
[2016-06-23] MEDS: CHOLECALCIFEROL (VIT D3) 1000 UNIT TAB PO SCH (18:15)
--- NOTE | 2016-06-23 18:16 | MB ---
cc: VICENTA HARPER M.D. DATE OF CONSULTATION: 06/23/2016. REASON FOR CONSULTATION: Right breast and axillary abscess. HISTORY OF PRESENT ILLNESS: This is a pleasant 66-year-old woman with significant past medical history of hypertension and kidney disease who indicates she thinks the glands under her right arm started swelling over the last seven to ten days ago. She is a little fuzzy on details. She does not recall any trauma. She may have had a bug bite or an ingrown hair. She does have problems with her skin. She had redness and discomfort despite doxycycline treatment. She is more concerned about her kidneys and her kidney function than she is her right breast and axillary cellulitis. She was evaluated and has an elevated white count with a left shift. An ultrasound shows edema but no drainable fluid collection. She was marked with a Sharpie pen at the periphery of her erythema and she says the erythema and induration has significantly decreased since she has been on antibiotics. She apparently has a previous pain pill addiction and is on methadone 110 milligrams a day. ALLERGIES: She as NO KNOWN DRUG ALLERGIES. PAST MEDICAL HISTORY: Her past medical history is significant for: 1. Above-mentioned hypertension. 2. Kidney disease. 3. Opioid addiction. PAST SURGICAL HISTORY: No previous surgeries of any significance. SOCIAL HISTORY: She has a 50 pack/year history of tobacco abuse. REVIEW OF SYSTEMS: Her review of systems is significant for having a prolapsed bladder and rectal prolapse, which she is very concerned about. She is very interested in seeing a physician associated with that. She has had no primary breast disorders in the past. No history of lymphatic disorders. PHYSICAL EXAMINATION: GENERAL: On physical examination, she is an overweight woman who is pleasant and cooperative with the exam. She is mildly disheveled. VITAL SIGNS: Her temperature is 98.2, pulse 80, respiratory rate 20, blood pressure is 137/68 and O2 sats are 94%. HEAD, EYES, EARS, NOSE, THROAT: She is normocephalic, atraumatic. She has some thinning hair. Her pupils are 3 and sluggish reactive. Her oral cavity shows no erythema. No sign of infection. She has upper and lower full denture plates. NECK: Her neck is supple without adenopathy. She has a midline trachea. No jugular venous distension. LUGNS: Her lungs are clear anteriorly with distant breath sounds. HEART: Her heart sounds are distant without obvious murmur, rub or gallop. BREASTS: The right breast is large. She has lateral cellulitic erythematous changes. There is really no residual induration and the area is palpably soft and it appears to have regressed especially in the upper inner arm. The erythema from the previously marked areas with a Sharpie marker has regressed a small amount on the lateral breast and chest wall. Again there is no fluctuance. There is no area that appears to contain a drainable fluid collection. ABDOMEN: Her abdomen, she says feels mildly bloated but it is soft and nontender. I did not examine for scars on the abdominal wall. EXTREMITIES: Her extremities show signs of chronic skin changes like intermittent infections and healing areas. She has got a couple of eschar'd areas that are small in the left forearm. She has some changes in the right lateral thigh that look like maybe old herpes zoster type skin changes without acute inflammation. She has equal radial and dorsalis pedis pulses. NEUROLOGIC: She is awake and alert and oriented with equal bilateral radiator fitter strength. Neurologically she is awake, alert and oriented. LABORATORY DATA: Her laboratory values showed a white count of 28,500 with 90% neutrophils. She had 18% bands. Her hemoglobins is 10.3. Her platelet count was 368,000. Chemistry showed an elevated PTH. She has a creatinine of 4.1, a BUN of 70, potassium of 3.5. Urinalysis showed large leukocyte esterase, innumerable white cells and many bacteria and a cultures has been performed. She was negative for nasal MRSA. Her urine culture shows greater than 100,000 gram negative rods. ASSESSMENT: This is a 66-year-old woman with history of hypertension and chronic kidney disease with acute component, a urinary tract infection and right lateral chest wall axillary lateral breast cellulitis. By patient report, this has improved on antibiotics. She does not have any drainable fluid collections and does not require surgical treatment for her cellulitis. I believe she is on antibiotics for cellulitis as well as her urinary tract infection and says vancomycin, piperacillin/tazobactam. She does need to see a pelvic composition floor layer, whether it is urology or gynecology, and possibly as colorectal surgery for her prolapses. Will see her tomorrow on rounds to make sure she does not develop any drainable collection MD NORMA Galdamez/NEETA /5:49 PM /6:03 PM
[2016-06-24] VITALS: BP_SYST 143; BP_SYST 166; BP_DIAS 69; BP_DIAS 76; PULSE 81; PULSE 85; RESP 20; TEMP 96; TEMP 97.8; O2SAT 93; O2SAT 96
[2016-06-24] MEDS ORDERED: VANCOMYCIN INJ 1,200 MG in SODIUM CHLOR 0.9% 250 ML INJ 250 ML IV SCH (02:00)
[2016-06-24] MEDS: CHLORHEXIDINE GLUCONATE 2 % 1 PACK (2 CLOTHS)(taper/protocol) TOP SCH (04:00)
[2016-06-24] MEDS: DOCUSATE SODIUM 100 MG CAP PO SCH ×2 (04:53→15:04)
[2016-06-24] MEDS: SODIUM CHLOR 0.9% 1000 ML INJ 1,000 ML IV SCH ×4 (04:54→23:15)
[2016-06-24] MEDS: PIPERACIL-TAZO 2.25 GM PREMIX 50 ML IV SCH ×3 (04:54→21:35)
[2016-06-24 05:15] LABS: AUTOMATED NEUTROPHIL # 17.1 TH/MM3 (1.8-7.7); BASOPHIL # 0.1 TH/MM3 (0-0.2); BASOPHIL % 0.6 % (0.0-2.0); EOSINOPHIL # 0.2 TH/MM3 (0-0.4); EOSINOPHIL % 0.8 % (0.0-4.0); HEMATOCRIT 30.7 % (35.0-46.0); LYMPH % 7.3 % (9.0-44.0); LYMPHOCYTE # 1.5 TH/MM3 (1.0-4.8); MEAN CELL VOLUME 87.6 FL (80.0-100.0); MEAN CORPUSCULAR HEMOGLOBIN 28.8 PG (27.0-34.0); MEAN CORPUSCULAR HGB CONC 32.9 % (32.0-36.0); MONO % 7.4 % (0.0-8.0); NEUT % 83.9 % (16.0-70.0); PLATELET COUNT 357 TH/MM3 (150-450); RED BLOOD COUNT 3.51 MIL/MM3 (4.00-5.30); RED CELL DISTRIBUTION WIDTH 15.9 % (11.6-17.2); WHITE BLOOD COUNT 20.4 TH/MM3 (4.0-11.0)
[2016-06-24 05:36] LABS: HEMO FLAGS AUTO DIFF
[2016-06-24 05:53] LABS: BICARBONATE 19.4 MEQ/L (21.0-32.0); POTASSIUM 3.7 MEQ/L (3.5-5.1)
[2016-06-24] MEDS ORDERED: GLUCAGON 1 MG/ML VIAL OTHER PRN (07:15)
[2016-06-24] MEDS ORDERED: DEXTROSE 50% IN WATER 50 ML VIAL(D50) IV PUSH PRN (07:15)
[2016-06-24] MEDS ORDERED: ERGOCALCIFEROL (VIT D2) 50,000 UNIT CAP PO SCH (07:15)
--- NOTE | 2016-06-24 07:15 | HHI.PR ---
Subjective Remarks Patient is in the chair. No fever or chills. Feels tired. Denies chest pain, sob , n/v/d/c. Right breast erythema and edema is improved. Objective Vitals Vital Signs Date Time Temp Pulse Resp B/P Pulse Ox O2 Delivery O2 Flow Rate FiO2 06/24/16 00:00 96.0 85 20 166/76 96 06/23/16 20:00 97.8 81 20 143/69 93 06/23/16 16:00 98.2 80 20 137/68 94 06/23/16 14:00 79 06/23/16 13:00 77 06/23/16 12:00 98.7 76 21 119/65 95 06/23/16 12:00 76 06/23/16 11:00 94 06/23/16 10:00 78 06/23/16 09:00 72 06/23/16 08:00 98.8 80 18 131/70 92 06/23/16 08:00 80 I/O 06/23/16 06/23/16 06/23/16 06/24/16 06/24/16 06/24/16 07:00 15:00 23:00 07:00 15:00 23:00 Intake Total 1170 ml 765 ml 700 ml 1434 ml Output Total 250 ml 252 ml 1000 ml 450 ml Balance 920 ml 513 ml -300 ml 984 ml Intake Oral 360 ml 240 ml 360 ml 240 ml IV Total 810 ml 525 ml 340 ml 1194 ml Output Urine Total 250 ml 250 ml 1000 ml 450 ml Stool Total 2 ml # Bowel Movements 1 0 0 Result Diagram: 06/24/16 0407 06/24/16406 Imaging Last Impressions Renal Ultrasound 06/23/16 0000 Signed Impressions: Service Date/Time: Thursday, June 23, 2016 07:51 - CONCLUSION: 1. Moderate bilateral hydronephrosis of unknown etiology. Rivas catheter present. 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 Franko Paez MD Breast Ultrasound 06/22/16 0000 Signed Impressions: Service Date/Time: June 13:18 - CONCLUSION: 1. Phlegmonous mass in the right breast associated with edema and inflammation. No drainable fluid collections. Dillon Sharma MD Objective Remarks GENERAL: Well-developed, well-nourished, in no acute distress. alert and orientated HEENT: Head is normocephalic without any lesions or masses noted. Facial features are symmetric. Eyes: Extraocular muscles are intact. Conjunctivae were clear. NECK: Supple without any masses. Trachea midline no deviation. No JVD, CARDIAC: Regular rhythm, regular rate. S1/S2 are heard. No murmurs gallops or rubs. LUNGS: Clear to auscultation bilaterally. No wheeze, rhonchi or rales. No use of accessory muscles on inspiration or expiration. ABDOMEN: Soft, nontender. Nondistended. Bowel sounds heard in all 4 quadrants. No organomegaly or masses. Negative rebound, negative guarding EXTREMITIES: No edema, pulses are equal bilaterally. No cyanosis or clubbing NEUROLOGY: Mood and affect appear appropriate. Cranial nerves II through XII grossly intact. Moving all extremities, speech is clear RIGHT BREAST: Patient still have significant erythema, mainly tissue. However erythema is receding from the previously marked line A/P Problem List: (1) Cellulitis of female breast ICD Code: N61.0 Status: Acute (2) Acute renal failure ICD Code: N17.9 Status: Acute (3) Phlegmonous cellulitis ICD Code: L02.91 Status: Acute Assessment and Plan -Sepsis: Patient met criteria on admission with leukocytosis, tachycardia, right breast cellulitis and urine tract infection. Cultures are pending at this time, continue to follow cultures. Continue vancomycin and Zosyn. -Large developing abscess with cellulitis of the left breast and axilla. Currently ultrasound shows phlegmon but no drainable fluid collections. However there is no doubt that this will continue develop into an abscess. Continue broad-spectrum IV antibiotics of vancomycin and Zosyn. Gen. Surgery consulted, no surgical approach atthis time cont IV abx. If any drainage occurs will check wound cultures. -Leukocytosis. Likely secondary to sepsis, infection. Continue monitor CBC -Acute renal failure on top of chronic kidney disease. Unknown baseline creatinine. Continue Rivas, continue IV fluids normal saline at a rate of 125 mL per hour. Renal ultrasound indicates bilateral hydronephrosis. Consulted urology, Consulted nephrology. I've requested records from her PCPs office. -Hypertension - resume Norvasc. -UTI. Continue Zosyn. Follow-up urine culture. -History of opioid addiction on methadone maintenance therapy, denies any history of IV drug abuse. resumed her home methadone dose which the ED nurse confirmed with the methadone clinic. -Hypokalemia. Continue monitor and replete as needed -Tobacco use. Cessation recommended. -Vit D deficiency Vit D of 6, Start Ergocalciferol -Hypoglycemia Start Hypoglycemic protocol -DVT prophylaxis with Lovenox. Per urology Dr. 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 Dr. Bowling does not treat that. Per urogyn Dr. Rich - he is out of town, however he is happy to follow the patient in his office next week. Patient should be continue (be discharged) with rivas. Discussed with Dr Wang nephrology. Says she needs urology as inpatient as obstruction as upstream and rivas is not helping. Reconsult urology for further evaluation. DC when improved and cleared by consultants Problem Qualifiers (1) Acute renal failure: Qualified Code: N17.9 - Acute renal failure, unspecified acute renal failure type Jen Silva MD Jun 24, 2016 07:15 type Jen Silva MD Jun 24, 2016 07:15
[2016-06-24 08:00] VITALS: BP 141/71; PULSE 77; RESP 17; TEMP 97.3; O2SAT 95
[2016-06-24] MEDS: CHOLECALCIFEROL (VIT D3) 1000 UNIT TAB PO SCH (08:31)
[2016-06-24] MEDS: amLODIPine BESYLATE 5 MG TAB PO SCH (08:32)
[2016-06-24] MEDS: SODIUM CHLORIDE 0.9% FLUSH 5 ML FLUSH FLUSH SCH ×2 (08:32→21:00)
[2016-06-24] MEDS: METHADONE HCL 10 MG TAB PO SCH (08:32)
[2016-06-24] MEDS: ERGOCALCIFEROL (VIT D2) 50,000 UNIT CAP PO SCH (08:40)
--- NOTE | 2016-06-24 09:53 | HHI.PR ---
Subjective Subjective Notes Feels OK. Does not feel like erythema has changed much since yesterday. Objective Vitals/I&O Vital Signs Date Time Temp Pulse Resp B/P Pulse Ox O2 Delivery O2 Flow Rate FiO2 06/24/16 08:00 97.3 77 17 141/71 95 06/22/16 21:00 Nasal Cannula 4.00 Labs Laboratory Tests Test 06/23/16 06/24/16 12:40 04:07 White Blood Count 28.5 20.4 Red Blood Count 3.52 3.51 Hemoglobin 10.3 10.1 Hematocrit 31.0 30.7 Mean Corpuscular Volume 87.9 87.6 Mean Corpuscular Hemoglobin 29.3 28.8 Mean Corpuscular Hemoglobin 33.3 32.9 Concent Red Cell Distribution Width 15.8 15.9 Platelet Count 368 357 Mean Platelet Volume 7.5 7.8 Neutrophils (%) (Auto) 90.2 83.9 Lymphocytes (%) (Auto) 3.0 7.3 Monocytes (%) (Auto) 6.0 7.4 Eosinophils (%) (Auto) 0.4 0.8 Basophils (%) (Auto) 0.4 0.6 Neutrophils # (Auto) 25.7 17.1 Lymphocytes # (Auto) 0.9 1.5 Monocytes # (Auto) 1.7 1.5 Eosinophils # (Auto) 0.1 0.2 Basophils # (Auto) 0.1 0.1 CBC Comment AUTO DIFF AUTO DIFF Differential Total Cells 100 Counted Neutrophils % (Manual) 72 Band Neutrophils % 18 Lymphocytes % 3 Monocytes % 4 Eosinophils % 1 Neutrophils # (Manual) 26.2 Metamyelocytes 2 Differential Comment FINAL DIFF MANUAL Platelet Estimate NORMAL Platelet Morphology Comment NORMAL Red Cell Morphology Comment NORMAL 25-Hydroxy Vitamin D Total 6.8 Parathyroid Hormone (Intact) 499.5 Sodium Level 139 Potassium Level 3.7 Chloride Level 105 Carbon Dioxide Level 19.4 Anion Gap 15 Blood Urea Nitrogen 77 Creatinine 4.48 Estimat Glomerular Filtration 10 Rate Random Glucose 49 Calcium Level 8.1 Date/Time Procedure Status Source Growth 06/22/16 14:32 Urine Culture - Preliminary Resulted Urine Catheterized Urine Gram Negative Lb 06/22/16 12:15 Aerobic Blood Culture - Preliminary Resulted Blood Peripheral NO GROWTH IN 1 DAY 06/22/16 12:15 Anaerobic Blood Culture - Preliminary Resulted Blood Peripheral NO GROWTH IN 1 DAY Narrative Exam Lateral R breast and axillary erythema not significantly changed. Minimal induration, no fluctuance. Upper inner arm erythema nearly completely resolved. A/P Assessment and Plan R axillary, lateral breast/chest wall cellulitis. Overall improved. No clinical drainable fluid collection at this time. WBC improved. I recommend continued IV abx with transition to oral abx- making sure UTI is covered- over next few days. Dr Villarreal to evaluate on rounds tomorrow. Naren Cortez MD Jun 24, 2016 09:53
[2016-06-24 11:19] LABS: BANDS 9 % (0-6); EOSINOPHILS 1 % (0-4); METAMYELOCYTES 1 % (0-1); POLYS (SEG NEUTROPHILS) 77 % (16-70); PROMYELOCYTES 1 % (0-0); WBC DIFF SAMPLE 100
[2016-06-24 11:20] LABS: PLATELET ESTIMATE SMEAR NORMAL (NORMAL); PLATELET MORPHOLOGY NORMAL (NORMAL); SCAN/DIFF FINAL DIFF MANUAL
[2016-06-24 12:00] VITALS: BP 145/73; PULSE 81; RESP 18; TEMP 98.7; O2SAT 95
[2016-06-24] MEDS: ENOXAPARIN SODIUM 30 MG/0.3 ML SYRINGE SQ SCH (15:10)
[2016-06-24 16:00] VITALS: BP 167/80; PULSE 79; RESP 19; TEMP 97.8; O2SAT 93
--- NOTE | 2016-06-24 16:51 | HHI.NPPN ---
Subjective History of Present Illness The patient is a 66 yo [place] female who presented to the ED in [place] 06/22/16 after an axillary infection got worse. She recently started seeing a primary care physician for the first time in many years and was given Doxycyline within the past week for this infection. She also mentions that she was told that she had a decline in her renal functions at that visit, but she is not sure how dysfunctional. Her PMHx is limited as she admits that she was not taking care of herself within the past several years, but states hypertension that she was recently started on medication for (not sure of name). On admission, her SCr was reported at 4.00 that has worsened to 4.10 at time of consult. Renal US was done that showed a moderate bilateral hydronephrosis. The patient admits that she has been taking Aleve everyday at home for some years. No recent abx besides Doxycycline. She is not diabetic and denies any previous urological obstructions. Does mention that she has had a decrease in her urinary flow for the past several weeks. Had a hysterectomy in the past related to uterine fibroids. Denies any gynecological cancers. Review of Systems General Constitutional: Fatigue Objective Data Data 06/23/16 06/24/16 19:00 07:00 Intake Total 765 ml 2134 ml Output Total 252 ml 1450 ml Balance 513 ml 684 ml Intake Oral 240 ml 600 ml IV Total 525 ml 1534 ml Output Urine Total 250 ml 1450 ml Stool Total 2 ml # Bowel Movements 0 Vital Signs Date Time Temp Pulse Resp B/P Pulse Ox O2 Delivery O2 Flow Rate FiO2 06/24/16 16:00 97.8 79 19 167/80 93 06/24/16 12:00 98.7 81 18 145/73 95 06/24/16 09:32 18 06/24/16 08:00 97.3 77 17 141/71 95 06/24/16 00:00 96.0 85 20 166/76 96 06/23/16 20:00 97.8 81 20 143/69 93 -: 06/24/16 0407 06/24/16 0407 Physical Exam General Appearance: No Acute Distress, Comfortable, Pale Eyes Eye Exam: Sclera White Pulmonary Resp Exam: Clear Bilaterally, Breath Sounds Equal, No Distress Cardiology CV Exam: Regular, Normal Sinus Rhythm Gastrointestinal/Abdomen GI Exam: Soft, Non-Tender Genitourinary Exam: Clear Urine Integumentary Skin Exam: Clear, Warm, Dry, Intact Extremeties Extremities Exam: No Edema Neurologic Neuro Exam: Alert, Awake Psychiatric Psych Exam: Appropriate Responses Assessment/Plan Problem List: (1) Acute renal failure Plan: Patient's be on a creatinine of deteriorating despite seemingly good urine output. Initially believed patient had acute or subacute renal failure secondary to obstruction given CT scan indicating severe bilateral hydronephrosis and hydroureter ureteral secondary to an apparent entrapment of distal ureters within the pelvic floor prolapse/hernia. Presently uncertain if there is still significant obstruction given the patient's urine output has indicated above. Would not discharge patient presently in view of deteriorating renal indices. I would like a formal in-house urological evaluation if possible In the interim I will order renal nuclear scan with Lasix washout to determine if there is any evidence of physiologic obstruction still present. Medications should be adjusted for the patient's estimated GFR if clinically indicated. Avoid agents with significant potential for nephrotoxicity possible including NSAIDs for analgesia, iodine contrast agents. Gadolinium is contraindicated if the GFR is below 30. (2) Hydronephrosis Plan: Presently uncertain as to the chronicity of same. Problem Qualifiers (1) Acute renal failure: Qualified Code: N17.9 - Acute renal failure, unspecified acute renal failure type Jacoby Wang MD Jun 24, 2016 16:51
--- NOTE | 2016-06-24 17:58 | PD.CONS ---
[facility] Service Urology Consult Requested By Dr. Youngblood Reason for Consult Bilateral hydronephrosis. Renal failure. Primary Care Physician Christian Contreras MD Diagnosis: (1) Hydronephrosis ICD Code: N13.30 (2) Chronic renal failure ICD Code: N18.9 (3) Bladder infection, acute ICD Code: N30.00 (4) Female bladder prolapse ICD Code: N81.10 (5) Cellulitis of female breast ICD Code: N61.0 (6) Acute renal failure ICD Code: N17.9 (7) Phlegmonous cellulitis ICD Code: L02.91 History of Present Illness Pt. admitted with breast cellulitis, leukocytosis, Cr: 4.1, complaining of dysuria. Cath Urine C&S: E. Coli Sens to all drugs tested. Breast, WBC have improved. UTI is being Rxed. CT scan shows moderately severe bilat. hydronephrosis into the pelvis with both distal ureters compressed by a total pelvic prolapse involving both the bladder and rectum. No urinary stones seen. Prolapse is well known to patient. Hydronephrosis and elevated Cr. are new findings. Past Family Social History Past Medical History EMR reviewed. Past Surgical History EMR reviewed. Allergies: Coded Allergies: No Known Allergies (Verified , 06/22/16) Social History Daughter lives in [place]. "" is handicapped. Physical Exam Vital Signs Vital Signs Date Time Temp Pulse Resp B/P Pulse Ox O2 Delivery O2 Flow Rate FiO2 06/24/16 16:00 97.8 79 19 167/80 93 06/24/16 12:00 98.7 81 18 145/73 95 06/24/16 09:32 18 06/24/16 08:00 97.3 77 17 141/71 95 06/24/16 00:00 96.0 85 20 166/76 96 06/23/16 20:00 97.8 81 20 143/69 93 Physical Exam GENERAL: This is a well-nourished, well-developed patient, in no apparent distress. SKIN: No rashes, ecchymoses or lesions. Cool and dry. HEAD: Atraumatic. Normocephalic. No temporal or scalp tenderness. EYES: Pupils equal round and reactive. Extraocular motions intact. No scleral icterus. No injection or drainage. ENT: Nose without bleeding, purulent drainage or septal hematoma. Throat without erythema, tonsillar hypertrophy or exudate. Uvula midline. Airway patent. NECK: Trachea midline. No JVD or lymphadenopathy. Supple, nontender, no meningeal signs. CARDIOVASCULAR: Regular rate and rhythm without murmurs, gallops, or rubs. RESPIRATORY: Clear to auscultation. Breath sounds equal bilaterally. No wheezes , rales, or rhonchi. GASTROINTESTINAL: Abdomen soft, non-tender, nondistended. No hepato-splenomegaly , or palpable masses. No guarding. MUSCULOSKELETAL: Extremities without clubbing, cyanosis, or edema. No joint tenderness, effusion, or edema noted. No calf tenderness. Negative Homans sign bilaterally. NEUROLOGICAL: Awake and alert. Cranial nerves II through XII intact. Motor and sensory grossly within normal limits. Five out of 5 muscle strength in all muscle groups. Normal speech. : Intelligent, well informed elderly white female. (Daughter present in room for entire visit). Laboratory Laboratory Tests Test 06/24/16 04:07 White Blood Count 20.4 Red Blood Count 3.51 Hemoglobin 10.1 Hematocrit 30.7 Mean Corpuscular Volume 87.6 Mean Corpuscular Hemoglobin 28.8 Mean Corpuscular Hemoglobin 32.9 Concent Red Cell Distribution Width 15.9 Platelet Count 357 Mean Platelet Volume 7.8 Neutrophils (%) (Auto) 83.9 Lymphocytes (%) (Auto) 7.3 Monocytes (%) (Auto) 7.4 Eosinophils (%) (Auto) 0.8 Basophils (%) (Auto) 0.6 Neutrophils # (Auto) 17.1 Lymphocytes # (Auto) 1.5 Monocytes # (Auto) 1.5 Eosinophils # (Auto) 0.2 Basophils # (Auto) 0.1 CBC Comment AUTO DIFF Differential Total Cells 100 Counted Neutrophils % (Manual) 77 Band Neutrophils % 9 Lymphocytes % 7 Monocytes % 4 Eosinophils % 1 Neutrophils # (Manual) 18.0 Metamyelocytes 1 Promyelocytes 1 Differential Comment FINAL DIFF MANUAL Platelet Estimate NORMAL Platelet Morphology Comment NORMAL Red Cell Morphology Comment NORMAL Sodium Level 139 Potassium Level 3.7 Chloride Level 105 Carbon Dioxide Level 19.4 Anion Gap 15 Blood Urea Nitrogen 77 Creatinine 4.48 Estimat Glomerular Filtration 10 Rate Random Glucose 49 Calcium Level 8.1 Date/Time Procedure Status Source Growth 06/22/16 14:32 Urine Culture - Preliminary Resulted Urine Catheterized Urine Escherichia Coli Gram Negative Lb 06/22/16 12:15 Aerobic Blood Culture - Preliminary Resulted Blood Peripheral NO GROWTH IN 2 DAYS 06/22/16 12:15 Anaerobic Blood Culture - Preliminary Resulted Blood Peripheral NO GROWTH IN 2 DAYS Result Diagram: 06/24/1640606/24/16406 Imaging Kidney US and CT scan images and reports personally reviewed. 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 No acute Urological intervention (ie: stents) is indicated at present. Technically, finding the ureteral orifices inside the bladder may by difficult; and if found, the kinking of the distal ureters may make passage of stents extremely difficult, if not impossible. The hydronephrosis may not completely resolve even after pelvic prolapse surgery , with or without urinary stents, if it has been present long enough. (2) Chronic renal failure ICD Code: N18.9 Status: Chronic Assessment and Plan: Renal failure is presumed to be chronic because of the chronicity of the bilateral hydronephrosis. F/U with serial Creatinines will determine if failure is stable or worsening or hopefully is improving with fdc rivas catheter drainage. If renal function progressively deteriorates then urinary stent placement can be attempted. (3) Bladder infection, acute ICD Code: N30.00 Status: Acute Assessment and Plan: Cause of dysuria. Being Rxed. Rivas catheter is helping the UTI by drainage. (4) Female bladder prolapse ICD Code: N81.10 Status: Chronic Assessment and Plan: Is the underlying cause of the bilateral hydronephrosis. Correcting the prolapse surgically should remove the external compression on the ureters and give better drainage and reduce the hydronephrosis. Needs OLIVE GRADER consult for this. (5) Severe sepsis ICD Code: A41.9 Status: Acute Assessment and Plan: Could be due to the breast cellulitis &/or the UTI. Both are improving. Assessment and Plan Urologically: Leave rivas catheter in place for at least 2 weeks while following serum Cr. Hopefully, this will help improve the kidney function. If not, then pelvic surgery on the prolapse is the Rx of choice. Discussed Condition With Claudette Mendoza PA, nurse, patient, daughter, (50+ min spent face to face discussing problems with patient and daughter). Problem Qualifiers (1) Hydronephrosis: Qualified Code: N13.39 - Other hydronephrosis (2) Bladder infection, acute: Qualified Code: N30.00 - Acute cystitis without hematuria (3) Acute renal failure: Qualified Code: N17.9 - Acute renal failure, unspecified acute renal failure type Franko Bowling MD Jun 24, 2016 17:58
[2016-06-24 20:00] VITALS: BP 170/83; PULSE 90; RESP 22; TEMP 98.9; O2SAT 94
[2016-06-24] MEDS: TEMAZEPAM 15 MG CAP PO PRN (21:35)
[2016-06-25] VITALS: BP 137/70; PULSE 86; RESP 22; TEMP 97.3; O2SAT 95
[2016-06-25] MEDS: DOCUSATE SODIUM 100 MG CAP PO SCH ×2 (04:00→15:57)
[2016-06-25] MEDS: CHLORHEXIDINE GLUCONATE 2 % 1 PACK (2 CLOTHS)(taper/protocol) TOP SCH (04:00)
[2016-06-25] MEDS: PIPERACIL-TAZO 2.25 GM PREMIX 50 ML IV SCH ×3 (05:14→20:30)
[2016-06-25 05:46] LABS: AUTOMATED NEUTROPHIL # 15.3 TH/MM3 (1.8-7.7); BASOPHIL # 0.1 TH/MM3 (0-0.2); BASOPHIL % 0.4 % (0.0-2.0); EOSINOPHIL # 0.3 TH/MM3 (0-0.4); EOSINOPHIL % 1.4 % (0.0-4.0); HEMATOCRIT 29.7 % (35.0-46.0); LYMPH % 8.5 % (9.0-44.0); LYMPHOCYTE # 1.6 TH/MM3 (1.0-4.8); MEAN CELL VOLUME 87.7 FL (80.0-100.0); MEAN CORPUSCULAR HEMOGLOBIN 28.6 PG (27.0-34.0); MEAN CORPUSCULAR HGB CONC 32.7 % (32.0-36.0); MONO % 8.1 % (0.0-8.0); NEUT % 81.6 % (16.0-70.0); PLATELET COUNT 368 TH/MM3 (150-450); RED BLOOD COUNT 3.39 MIL/MM3 (4.00-5.30); RED CELL DISTRIBUTION WIDTH 16.3 % (11.6-17.2); WHITE BLOOD COUNT 18.7 TH/MM3 (4.0-11.0)
[2016-06-25 06:00] LABS: BICARBONATE 18.9 MEQ/L (21.0-32.0); HEMO FLAGS AUTO DIFF; POTASSIUM 3.3 MEQ/L (3.5-5.1)
[2016-06-25 07:21] LABS: BANDS 6 % (0-6); EOSINOPHILS 1 % (0-4); METAMYELOCYTES 6 % (0-1); MYELOCYTES 6 % (0-0); NEUTROPHIL # MANUAL DIFF 15.7 TH/MM3 (1.8-7.7); PLATELET ESTIMATE SMEAR NORMAL (NORMAL); PLATELET MORPHOLOGY NORMAL (NORMAL); POLYS (SEG NEUTROPHILS) 66 % (16-70); WBC DIFF SAMPLE 100
[2016-06-25 07:22] LABS: SCAN/DIFF FINAL DIFF MANUAL
[2016-06-25 08:00] VITALS: BP 188/82; PULSE 78; RESP 18; TEMP 97.2; O2SAT 97
[2016-06-25] MEDS: amLODIPine BESYLATE 5 MG TAB PO SCH (08:03)
[2016-06-25] MEDS: CHOLECALCIFEROL (VIT D3) 1000 UNIT TAB PO SCH (08:03)
[2016-06-25] MEDS: SODIUM CHLOR 0.9% 1000 ML INJ 1,000 ML IV SCH ×2 (08:04→15:57)
[2016-06-25] MEDS: METHADONE HCL 10 MG TAB PO SCH (08:04)
[2016-06-25] MEDS: SODIUM CHLORIDE 0.9% FLUSH 5 ML FLUSH FLUSH SCH ×2 (08:04→20:30)
--- NOTE | 2016-06-25 09:35 | HHI.PR ---
Subjective Subjective Notes Patient states redness much improved since IV antibiotics started Objective Vitals/I&O Vital Signs Date Time Temp Pulse Resp B/P Pulse Ox O2 Delivery O2 Flow Rate FiO2 06/25/16 08:00 97.2 78 18 188/82 97 06/22/16 21:00 Nasal Cannula 4.00 Labs Laboratory Tests Test 06/25/16 04:36 White Blood Count 18.7 Red Blood Count 3.39 Hemoglobin 9.7 Hematocrit 29.7 Mean Corpuscular Volume 87.7 Mean Corpuscular Hemoglobin 28.6 Mean Corpuscular Hemoglobin 32.7 Concent Red Cell Distribution Width 16.3 Platelet Count 368 Mean Platelet Volume 7.5 Neutrophils (%) (Auto) 81.6 Lymphocytes (%) (Auto) 8.5 Monocytes (%) (Auto) 8.1 Eosinophils (%) (Auto) 1.4 Basophils (%) (Auto) 0.4 Neutrophils # (Auto) 15.3 Lymphocytes # (Auto) 1.6 Monocytes # (Auto) 1.5 Eosinophils # (Auto) 0.3 Basophils # (Auto) 0.1 CBC Comment AUTO DIFF Differential Total Cells 100 Counted Neutrophils % (Manual) 66 Band Neutrophils % 6 Lymphocytes % 9 Monocytes % 6 Eosinophils % 1 Neutrophils # (Manual) 15.7 Metamyelocytes 6 Myelocytes 6 Differential Comment FINAL DIFF MANUAL Platelet Estimate NORMAL Platelet Morphology Comment NORMAL Red Cell Morphology Comment NORMAL Sodium Level 139 Potassium Level 3.3 Chloride Level 107 Carbon Dioxide Level 18.9 Anion Gap 13 Blood Urea Nitrogen 76 Creatinine 4.27 Estimat Glomerular Filtration 10 Rate Random Glucose 66 Calcium Level 7.8 Date/Time Procedure Status Source Growth 06/22/16 14:32 Urine Culture - Preliminary Resulted Urine Catheterized Urine Escherichia Coli Gram Negative Lb 06/22/16 12:15 Aerobic Blood Culture - Preliminary Resulted Blood Peripheral NO GROWTH IN 2 DAYS 06/22/16 12:15 Anaerobic Blood Culture - Preliminary Resulted Blood Peripheral NO GROWTH IN 2 DAYS Lungs: Clear Narrative Exam Upper inner arm with no erythema Axilla soft with resolving erythema and no induration. Lateral breast with some erythema and minimal induration, no fluctuance A/P Assessment and Plan Cellulitis RIGHT breast and axilla, improving. Plan: Continue antibiotics; likely will not need any surgery unless an abscess develops. Will continue to follow. Albert Villarreal MD Jun 25, 2016 09:35
[2016-06-25 12:00] VITALS: BP 140/98; PULSE 82; RESP 17; TEMP 96.6; O2SAT 98
[2016-06-25] MEDS ORDERED: POTASSIUM CHLORIDE 20 MEQ CONTROLLED RELEASE TAB PO ONE (12:00)
[2016-06-25] MEDS: SODIUM BICARBONATE 650 MG TAB PO SCH ×2 (12:16→20:30)
[2016-06-25] MEDS ORDERED: VANCOMYCIN INJ 1,750 MG in SODIUM CHLORID 0.9% 500 ML INJ 500 ML IV ONE (14:00)
--- NOTE | 2016-06-25 14:24 | HHI.PR ---
Subjective Remarks Dysuria less. Feels better in general. Objective Vital Signs Vital Signs Date Time Temp Pulse Resp B/P Pulse Ox O2 Delivery O2 Flow Rate FiO2 06/25/16 12:00 96.6 82 17 140/98 98 06/25/16 08:00 97.2 78 18 188/82 97 06/25/16 00:00 97.3 86 22 137/70 95 06/24/16 20:00 98.9 90 22 170/83 94 06/24/16 16:00 97.8 79 19 167/80 93 I/O 06/24/16 06/24/16 06/24/16 06/25/16 06/25/16 06/25/16 07:00 15:00 23:00 07:00 15:00 23:00 Intake Total 1434 ml 1588 ml 1376 ml 1467 ml Output Total 450 ml 1500 ml 925 ml 450 ml Balance 984 ml 88 ml 451 ml 1017 ml Intake Oral 240 ml 540 ml 480 ml 480 ml IV Total 1194 ml 1048 ml 896 ml 987 ml Output Urine Total 450 ml 1500 ml 925 ml 450 ml # Bowel Movements 0 2 1 1 Result Diagram: 06/25/16 0436 06/25/16 0436 Imaging Kidney US and CT scan images and reports personally reviewed. Objective Remarks 06-25-16: Cr & eGFR both stable as expected. WBC improving slowly. Urine C&S reviewed. 2 Gram neg. orgs. Sensitivities indicate both community orgs. Rivas remains in place. 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 No acute Urological intervention (ie: stents) is indicated at present. Technically, finding the ureteral orifices inside the bladder may by difficult; and if found, the kinking of the distal ureters may make passage of stents extremely difficult, if not impossible. The hydronephrosis may not completely resolve even after pelvic prolapse surgery , with or without urinary stents, if it has been present long enough. (2) Chronic renal failure ICD Code: N18.9 Status: Chronic Assessment and Plan: Renal failure is presumed to be chronic because of the chronicity of the bilateral hydronephrosis. F/U with serial Creatinines will determine if failure is stable or worsening or hopefully is improving with extermination inspector rivas catheter drainage. If renal function progressively deteriorates then urinary stent placement can be attempted. (3) Bladder infection, acute ICD Code: N30.00 Status: Acute Assessment and Plan: Cause of dysuria. Being Rxed. Rivas catheter is helping the UTI by drainage. (4) Female bladder prolapse ICD Code: N81.10 Status: Chronic Assessment and Plan: Is the underlying cause of the bilateral hydronephrosis. Correcting the prolapse surgically should remove the external compression on the ureters and give better drainage and reduce the hydronephrosis. Needs [employer]S [employer]AD consult for this. (5) Severe sepsis ICD Code: A41.9 Status: Acute Assessment and Plan: Could be due to the breast cellulitis &/or the UTI. Both are improving. Assessment and Plan 06-24-16: Urologically: Leave rivas catheter in place for at least 2 weeks while following serum Cr. Hopefully, this will help improve the kidney function. If not, then pelvic surgery on the prolapse is the Rx of choice. 06-25-16: Urologically stable. REC: See above. Of most importance is for her to have the pelvic prolapse surgically treated by [employer] with close F/U Urologically in hopes that then the hydronephrosis will improve. F/U [facility]: Jonathon Diallo at [phone] depending on her insurance. Problem Qualifiers (1) Hydronephrosis: Qualified Code: N13.39 - Other hydronephrosis (2) Bladder infection, acute: Qualified Code: N30.00 - Acute cystitis without hematuria Franko Bowling MD Jun 25, 2016 14:24
--- NOTE | 2016-06-25 14:46 | HHI.FPPN ---
Subjective Remarks Pt seen and examined this am. Reports being a nervous and anxious person,but slept well overall. Denies CP or SOB, denies N/V. Has had multiple stools. Rivas in place. Daughter reports mentation is the best it has been, reports her mother was paranoid and agitated yesterday. States she is happy shes in the hospital and is worried she will be forced to leave before she feels better. Today she reports is the first day she has felt good during her admission. Objective Vitals Vital Signs Date Time Temp Pulse Resp B/P Pulse Ox O2 Delivery O2 Flow Rate FiO2 06/25/16 12:00 96.6 82 17 140/98 98 06/25/16 08:00 97.2 78 18 188/82 97 06/25/16 00:00 97.3 86 22 137/70 95 06/24/16 20:00 98.9 90 22 170/83 94 06/24/16 16:00 97.8 79 19 167/80 93 I/O 06/24/16 06/24/16 06/24/16 06/25/16 06/25/16 06/25/16 07:00 15:00 23:00 07:00 15:00 23:00 Intake Total 1434 ml 1588 ml 1376 ml 1467 ml Output Total 450 ml 1500 ml 925 ml 450 ml Balance 984 ml 88 ml 451 ml 1017 ml Intake Oral 240 ml 540 ml 480 ml 480 ml IV Total 1194 ml 1048 ml 896 ml 987 ml Output Urine Total 450 ml 1500 ml 925 ml 450 ml # Bowel Movements 0 2 1 1 Result Diagram: 06/25/16 0436 06/25/16 0436 Imaging Last Impressions Renal Ultrasound 06/23/16 0000 Signed Impressions: Service Date/Time: Thursday, June 23, 2016 07:51 - CONCLUSION: 1. Moderate bilateral hydronephrosis of unknown etiology. Rivas catheter present. 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 Franko Paez MD Breast Ultrasound 06/22/16 0000 Signed Impressions: Service Date/Time: June 13:18 - CONCLUSION: 1. Phlegmonous mass in the right breast associated with edema and inflammation. No drainable fluid collections. Dillon Sharma MD Objective Remarks GENERAL: Well-developed, well-nourished, in no acute distress. alert and orientated HEENT: Head is normocephalic without any lesions or masses noted. Facial features are symmetric. Eyes: Extraocular muscles are intact. Conjunctivae were clear. NECK: Supple without any masses. Trachea midline no deviation. No JVD, CARDIAC: Regular rhythm, regular rate. S1/S2 are heard. No murmurs gallops or rubs. LUNGS: Clear to auscultation bilaterally. No wheeze, rhonchi or rales. No use of accessory muscles on inspiration or expiration. ABDOMEN: Soft, nontender. Nondistended. Bowel sounds heard in all 4 quadrants. No organomegaly or masses. Negative rebound, negative guarding EXTREMITIES: No edema, pulses are equal bilaterally. No cyanosis or clubbing NEUROLOGY: Mood and affect appear appropriate, some anxiety is present. Moving all extremities, speech is clear RIGHT BREAST: Patient still have significant erythema, but has receded from the previously marked line. There is significant warmth and induration from the nipple, to armpit and upper arm. There is no palpable abscess. A/P Assessment and Plan 66 yo female with: -Sepsis on admission: leukocytosis, tachycardia, right breast cellulitis and urine tract infection. Afebrile and leukocytosis is improving. UC +e.coli & klebsiella (pansensitive), blood cultures neg x 3 days. Currently on vancomycin and Zosyn. -Large cellulitis of the left breast and axilla. Ultrasound shows phlegmon but no drainable fluid collections. Showing improvement on broad spectrum abx. Continue broad-spectrum IV antibiotics of vancomycin and Zosyn. Gen. Surgery consulted, no surgical approach at this time cont IV abx. If any drainage occurs will obtain wound cultures. -Acute on chronic kidney disease. Unknown baseline creatinine. Up trending. Continue Rivas, continue IVF NS @ 125 mL per hour. Renal ultrasound indicates bilateral hydronephrosis. * Urology: Dr. Bowling b/l hydronephrosis appears to be a chronic issue likely stemming from bladder outlet obstruction from the pelvic floor prolapse. No acute urological intervention indicated at this time. "Of most importance is for her to have the pelvic prolapse surgically treated by VAPOR COATER with close F/U Urologically in hopes that then the hydronephrosis will improve. F/U [facility]: Jonathon Diallo at [phone] depending on her insurance." * Nephrology: Dr Wang says she needs urology as inpatient as obstruction is upstream and rivas is not helping. * Urogyn: Dr. Rich - he is out of town, however he is happy to follow the patient in his office next week. Patient should be continue (be discharged) with rivas. (patient mother is going to call office and see if he takes her insurance) * Renograom scheduled for tomorrow - Pelvic prolapse, see above -Hypertension - resume Norvasc, better controlled. -UTI. U/C growing e.coli and klebsiella, both pansensitive. Continue Zosyn. -History of opioid addiction on methadone maintenance therapy, denies any history of IV drug abuse. resumed her home methadone dose which the ED nurse confirmed with the methadone clinic. -Hypokalemia. Continue monitor and replete as needed -Tobacco use. Cessation recommended. -Vit D deficiency Vit D of 6, Start Ergocalciferol -Hypoglycemia Start Hypoglycemic protocol -DVT prophylaxis with Lovenox (renally dosed). Problem List: (1) Acute renal failure Status: Acute (2) Cellulitis of female breast Status: Acute (3) Bladder infection, acute Status: Acute (4) Hydronephrosis Status: Chronic (5) Female bladder prolapse Status: Chronic Problem Qualifiers (1) Acute renal failure: Qualified Code: N17.9 - Acute renal failure, unspecified acute renal failure type (2) Bladder infection, acute: Qualified Code: N30.00 - Acute cystitis without hematuria (3) Hydronephrosis: Qualified Code: N13.39 - Other hydronephrosis Nika Knight MD R3 Jun 25, 2016 14:46
[2016-06-25] MEDS: ENOXAPARIN SODIUM 30 MG/0.3 ML SYRINGE SQ SCH (15:57)
[2016-06-25 16:00] VITALS: BP 157/75; PULSE 86; RESP 16; TEMP 96.4; O2SAT 93
[2016-06-25 20:00] VITALS: BP 166/78; PULSE 87; RESP 20; TEMP 96.9; O2SAT 98
[2016-06-25] MEDS: TEMAZEPAM 15 MG CAP PO PRN (20:29)
[2016-06-26] VITALS: BP 162/79; PULSE 92; RESP 22; TEMP 97.9; O2SAT 96
[2016-06-26] MEDS: SODIUM CHLOR 0.9% 1000 ML INJ 1,000 ML IV SCH ×2 (00:04→06:59)
[2016-06-26] MEDS: DOCUSATE SODIUM 100 MG CAP PO SCH ×2 (03:57→16:05)
[2016-06-26] MEDS: CHLORHEXIDINE GLUCONATE 2 % 1 PACK (2 CLOTHS)(taper/protocol) TOP SCH (03:58)
[2016-06-26 05:43] LABS: AUTOMATED NEUTROPHIL # 18.6 TH/MM3 (1.8-7.7); BASOPHIL # 0.1 TH/MM3 (0-0.2); BASOPHIL % 0.5 % (0.0-2.0); EOSINOPHIL # 0.3 TH/MM3 (0-0.4); EOSINOPHIL % 1.3 % (0.0-4.0); HEMATOCRIT 30.9 % (35.0-46.0); LYMPH % 8.5 % (9.0-44.0); LYMPHOCYTE # 1.9 TH/MM3 (1.0-4.8); MEAN CELL VOLUME 88.2 FL (80.0-100.0); MEAN CORPUSCULAR HEMOGLOBIN 28.4 PG (27.0-34.0); MEAN CORPUSCULAR HGB CONC 32.2 % (32.0-36.0); MONO % 6.7 % (0.0-8.0); PLATELET COUNT 386 TH/MM3 (150-450); RED CELL DISTRIBUTION WIDTH 15.8 % (11.6-17.2); WHITE BLOOD COUNT 22.4 TH/MM3 (4.0-11.0)
[2016-06-26 05:52] LABS: BICARBONATE 17.6 MEQ/L (21.0-32.0); POTASSIUM 3.7 MEQ/L (3.5-5.1)
[2016-06-26] MEDS: PIPERACIL-TAZO 2.25 GM PREMIX 50 ML IV SCH ×3 (05:53→22:22)
[2016-06-26] MEDS: SODIUM BICARBONATE 650 MG TAB PO SCH ×3 (05:53→22:22)
[2016-06-26 06:15] LABS: HEMO FLAGS AUTO DIFF
[2016-06-26 08:00] VITALS: BP 167/80; PULSE 85; RESP 20; TEMP 98.1; O2SAT 98
[2016-06-26] MEDS: CHOLECALCIFEROL (VIT D3) 1000 UNIT TAB PO SCH (08:04)
[2016-06-26] MEDS: amLODIPine BESYLATE 5 MG TAB PO SCH (08:04)
[2016-06-26] MEDS: METHADONE HCL 10 MG TAB PO SCH (08:04)
[2016-06-26] MEDS: SODIUM CHLORIDE 0.9% FLUSH 5 ML FLUSH FLUSH SCH ×2 (08:04→22:22)
[2016-06-26 08:36] LABS: METAMYELOCYTES 7 % (0-1); MYELOCYTES 1 % (0-0); NEUTROPHIL # MANUAL DIFF 18.1 TH/MM3 (1.8-7.7); PLATELET ESTIMATE SMEAR NORMAL (NORMAL); PLATELET MORPHOLOGY NORMAL (NORMAL); POLYS (SEG NEUTROPHILS) 73 % (16-70); SCAN/DIFF FINAL DIFF MANUAL; WBC DIFF SAMPLE 100
[2016-06-26] MEDS ORDERED: FUROSEMIDE 40 MG/4 ML VIAL ONE (09:12)
--- NOTE | 2016-06-26 10:16 | HHI.NPPN ---
Subjective History of Present Illness The patient is a 66 yo [place] female who presented to the ED in PO 06/22/16 after an axillary infection got worse. She recently started seeing a primary care physician for the first time in many years and was given Doxycyline within the past week for this infection. She also mentions that she was told that she had a decline in her renal functions at that visit, but she is not sure how dysfunctional. Her PMHx is limited as she admits that she was not taking care of herself within the past several years, but states hypertension that she was recently started on medication for (not sure of name). On admission, her SCr was reported at 4.00 that has worsened to 4.10 at time of consult. Renal US was done that showed a moderate bilateral hydronephrosis. The patient admits that she has been taking Aleve everyday at home for some years. No recent abx besides Doxycycline. She is not diabetic and denies any previous urological obstructions. Does mention that she has had a decrease in her urinary flow for the past several weeks. Had a hysterectomy in the past related to uterine fibroids. Denies any gynecological cancers. Interval History No new complaints (Claudette Traylor) Review of Systems General Constitutional: Fatigue (Claudette Traylor) Objective Data Data 06/25/16 06/26/16 19:00 07:00 Intake Total 585 ml 3585 ml Output Total 1500 ml 3375 ml Balance -915 ml 210 ml Intake Oral 585 ml 960 ml IV Total 2625 ml Output Urine Total 1500 ml 3375 ml # Bowel Movements 1 3 Vital Signs Date Time Temp Pulse Resp B/P Pulse Ox O2 Delivery O2 Flow Rate FiO2 06/26/16 09:04 18 06/26/16 08:00 98.1 85 20 167/80 98 06/26/16 00:00 97.9 92 22 162/79 96 06/25/16 20:00 96.9 87 20 166/78 98 06/25/16 16:00 96.4 86 16 157/75 93 06/25/16 12:00 96.6 82 17 140/98 98 (Claudette Traylor) -: 06/26/16 0430 06/26/16 0430 Medication Review Current Medications Medications (Trade) Dose Ordered Sig/Elinor Route Start Time Stop Time Status Last Admin (NS 1000 ml Inj) 1,000 ml @ 125 mls/hr Q8H IV 06/22/16 15:15 06/26/16 00:04 (NS Flush) 2 ml UNSCH PRN FLUSH 06/22/16 15:15 (NS Flush) 2 ml BID FLUSH 06/22/16 21:00 06/25/16 08:04 (Tylenol) 650 mg Q4H PRN PO 06/22/16 15:15 (Colace) 100 mg Q12H PO 06/22/16 16:00 06/25/16 15:57 (Milk Of Magnesia Liq) 30 ml Q12H PRN PO 06/22/16 15:15 (Restoril) 15 mg HS PRN PO 06/22/16 15:15 06/25/16 20:29 (Lovenox Inj) 30 mg Q24H SQ 06/22/16 16:00 06/25/16 15:57 Naloxone HCl 0.4 mg 0.4 mg UNSCH PRN IV 06/22/16 15:15 Piperacillin Sod/ Tazobactam Sod 50 ml @ 100 mls/hr Q8HR IV 06/22/16 22:00 06/26/16 05:53 (Vancomycin Consult Pharmacy) 0 ml @ 0 mls/hr UNSCH XX 06/22/16 15:15 (Norvasc) 5 mg DAILY PO 06/23/16 09:00 06/26/16 08:04 (Dolophine) 110 mg DAILY PO 06/23/16 09:00 06/26/16 08:04 Miscellaneous Information Patient in critical care unit? Ass... Q361D XX 06/22/16 22:00 06/22/16 22:00 (Chlorhexidine 2% Cloth) 3 pack DAILY@04 TOP 06/23/16 04:00 06/27/16 04:01 06/23/16 04:00 (Chlorhexidine 2% Cloth) 3 pack UNSCH PRN TOP 06/22/16 22:00 06/27/16 21:48 (Vitamin D3) 2,000 units DAILY PO 06/23/16 18:00 06/26/16 08:04 (D50w (Vial) Inj) 25 ml UNSCH PRN IV PUSH 06/24/16 07:15 (Glucagon Inj) 1 mg UNSCH PRN OTHER 06/24/16 07:15 (Drisdol) 50,000 units Q7D PO 06/24/16 08:00 06/24/16 08:40 (Sodium Bicarbonate) 650 mg Q8HR PO 06/25/16 14:00 06/26/16 05:53 (Claudette Traylor) Physical Exam General Appearance: No Acute Distress, Comfortable, Pale (Claudette Traylor) Eyes Eye Exam: Sclera White (Claudette Traylor) Pulmonary Resp Exam: Clear Bilaterally, Breath Sounds Equal, No Distress (Claudette Traylor) Cardiology CV Exam: Regular, Normal Sinus Rhythm (Claudette Traylor) Gastrointestinal/Abdomen GI Exam: Soft, Non-Tender (Claudette Traylor) Genitourinary Exam: Clear Urine (Claudette Traylor) Integumentary Skin Exam: Clear, Warm, Dry, Intact (Claudette Traylor) Extremeties Extremities Exam: Trace Edema Extremeties Remarks bilat pretibial (Claudette Traylor) Neurologic Neuro Exam: Alert, Awake (Claudette Traylor) Psychiatric Psych Exam: Appropriate Responses (Claudette Traylor) Assessment/Plan Problem List: (1) Acute renal failure Plan: SCr improved slightly. Initially believed patient had acute or subacute renal failure secondary to obstruction given CT scan indicating severe bilateral hydronephrosis and hydroureter ureteral secondary to an apparent entrapment of distal ureters within the pelvic floor prolapse/hernia. Presently uncertain if there is still significant obstruction given the patient's urine output. Pending renogram today. Reviewed urology note. Increase po bicarb as ordered D/C IVF Medications should be adjusted for the patient's estimated GFR if clinically indicated. Avoid agents with significant potential for nephrotoxicity possible including NSAIDs for analgesia, iodine contrast agents. Gadolinium is contraindicated if the GFR is below 30. (2) Hydronephrosis Plan: Presently uncertain as to the chronicity of same. (Claudette Traylor) Plan The exam, history, and the medical decision-making described in the above note were completed with the assistance of the PARajesh. I reviewed and agree with the findings presented. I attest that I had a [id number] encounter with the patient on the same day, and personally performed and documented my assessment and findings in the medical record. (Jacoby Wang MD) Problem Qualifiers (1) Acute renal failure: Qualified Code: N17.9 - Acute renal failure, unspecified acute renal failure type (2) Hydronephrosis: Qualified Code: N13.39 - Other hydronephrosis Claudette Traylor Jun 26, 2016 10:15 Jacoby Wang MD Jun 28, 2016 17:55
[2016-06-26 12:00] VITALS: BP 167/76; PULSE 84; RESP 19; TEMP 98.3; O2SAT 98
--- NOTE | 2016-06-26 12:54 | RADRPT ---
EXAM DATE/TIME: 06/26/2016 09:19 [facility] COMPARISON: CT ABDOMEN & PELVIS W/O CONTRAST, June 23, 2016, 14:20. INDICATIONS : Bilateral hydronephrosis. Obstruction. DOSE: 20.2 mCi Tc99m DTPA IV MEDICATION: 40 mg Lasix IV MEDICAL HISTORY : Hypertension. SURGICAL HISTORY : Hysterectomy. ENCOUNTER: Initial ACUITY: 4 - 6 days PAIN SCALE: 3/10 LOCATION: Right flank TECHNIQUE: Dynamic images were performed in the posterior projection for a total of 28 minutes. FINDINGS: FLOW: There is symmetric arrival of bolus to both kidneys. There is homogeneous perfusion to both kidneys. EXCRETION: There is extremely sluggish cortical transit of radiotracer with no excretion visualized during scann ing despite Lasix administration. CONCLUSION: Findings consistent with high-grade bilateral obstructive uropathy Franko Paez MD on June 26, 2016 at 12:48 Board Certified Radiologist. This report was verified electronically.
[2016-06-26 16:00] VITALS: BP 170/76; PULSE 84; RESP 20; TEMP 99.9; O2SAT 98
[2016-06-26] MEDS: ENOXAPARIN SODIUM 30 MG/0.3 ML SYRINGE SQ SCH (16:06)
--- NOTE | 2016-06-26 16:11 | HHI.PR ---
Subjective Subjective Notes feels like area under r arm is getting better. Objective Vitals/I&O Vital Signs Date Time Temp Pulse Resp B/P Pulse Ox O2 Delivery O2 Flow Rate FiO2 06/26/16 12:00 98.3 84 19 167/76 98 06/22/16 21:00 Nasal Cannula 4.00 Labs Laboratory Tests Test 06/26/16 06/26/16 04:30 13:00 White Blood Count 22.4 Red Blood Count 3.50 Hemoglobin 10.0 Hematocrit 30.9 Mean Corpuscular Volume 88.2 Mean Corpuscular Hemoglobin 28.4 Mean Corpuscular Hemoglobin 32.2 Concent Red Cell Distribution Width 15.8 Platelet Count 386 Mean Platelet Volume 7.4 Neutrophils (%) (Auto) 83.0 Lymphocytes (%) (Auto) 8.5 Monocytes (%) (Auto) 6.7 Eosinophils (%) (Auto) 1.3 Basophils (%) (Auto) 0.5 Neutrophils # (Auto) 18.6 Lymphocytes # (Auto) 1.9 Monocytes # (Auto) 1.5 Eosinophils # (Auto) 0.3 Basophils # (Auto) 0.1 CBC Comment AUTO DIFF Differential Total Cells 100 Counted Neutrophils % (Manual) 73 Lymphocytes % 9 Monocytes % 10 Neutrophils # (Manual) 18.1 Metamyelocytes 7 Myelocytes 1 Differential Comment FINAL DIFF MANUAL Platelet Estimate NORMAL Platelet Morphology Comment NORMAL Sodium Level 141 Potassium Level 3.7 Chloride Level 110 Carbon Dioxide Level 17.6 Anion Gap 13 Blood Urea Nitrogen 72 Creatinine 4.11 Estimat Glomerular Filtration 11 Rate Random Glucose 64 Calcium Level 7.9 Phosphorus Level 7.3 Albumin 1.7 Complement C3 119 Complement C4 28 Hepatitis B Surface Antigen NEGATIVE Hepatitis C Antibody NEGATIVE Date/Time Procedure Status Source Growth 06/22/16 14:32 Urine Culture - Final Complete Urine Catheterized Urine Escherichia Coli Klebsiella Ozaenae 06/22/16 12:15 Aerobic Blood Culture - Preliminary Resulted Blood Peripheral NO GROWTH IN 4 DAYS 06/22/16 12:15 Anaerobic Blood Culture - Preliminary Resulted Blood Peripheral NO GROWTH IN 4 DAYS Narrative Exam Decreased area of erythema and induration. No fluctuant area. A/P Assessment and Plan R axillary, lateral breast/chest wall cellulitis. Overall improved. No clinical drainable fluid collection at this time. Continue current abx therapy, will follow every other day to ensure no drainable collection develops. Naren Cortez MD Jun 26, 2016 16:11
--- NOTE | 2016-06-26 16:56 | HHI.PR ---
Subjective Remarks Late entry. The patient was seen earlier today. Family at bedside. No n/v/d/c. Patient reports rash is improving. Pain is controlled by meds. Objective Vitals Vital Signs Date Time Temp Pulse Resp B/P Pulse Ox O2 Delivery O2 Flow Rate FiO2 06/26/16 16:00 99.9 84 20 170/76 98 06/26/16 12:00 98.3 84 19 167/76 98 06/26/16 09:04 18 06/26/16 08:00 98.1 85 20 167/80 98 06/26/16 00:00 97.9 92 22 162/79 96 06/25/16 20:00 96.9 87 20 166/78 98 I/O 06/25/16 06/25/16 06/25/16 06/26/16 06/26/16 06/26/16 07:00 15:00 23:00 07:00 15:00 23:00 Intake Total 1467 ml 585 ml 2101 ml 1484 ml 1515 ml Output Total 450 ml 1500 ml 1475 ml 1900 ml 3400 ml Balance 1017 ml -915 ml 626 ml -416 ml -1885 ml Intake Oral 480 ml 585 ml 480 ml 480 ml 960 ml IV Total 987 ml 1621 ml 1004 ml 555 ml Output Urine Total 450 ml 1500 ml 1475 ml 1900 ml 3400 ml # Bowel Movements 1 1 2 1 1 Result Diagram: 06/26/16 0430 06/26/16 0430 Imaging Last Impressions Renal Scan w/Medication NM 06/26/16 0000 Signed Impressions: Service Date/Time: Sunday, June 26, 2016 09:19 - CONCLUSION: Findings consistent with high-grade bilateral obstructive uropathy Franko Paez MD Renal Ultrasound 06/23/16 0000 Signed Impressions: Service Date/Time: Thursday, June 23, 2016 07:51 - CONCLUSION: 1. Moderate bilateral hydronephrosis of unknown etiology. Rivas catheter present. 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 Franko Paez MD Breast Ultrasound 06/22/16 0000 Signed Impressions: Service Date/Time: June 13:18 - CONCLUSION: 1. Phlegmonous mass in the right breast associated with edema and inflammation. No drainable fluid collections. iDllon Sharma MD Objective Remarks GENERAL: Well-developed, well-nourished, in no acute distress. alert and orientated HEENT: Head is normocephalic without any lesions or masses noted. Facial features are symmetric. Eyes: Extraocular muscles are intact. Conjunctivae were clear. NECK: Supple without any masses. Trachea midline no deviation. No JVD, CARDIAC: Regular rhythm, regular rate. S1/S2 are heard. No murmurs gallops or rubs. LUNGS: Clear to auscultation bilaterally. No wheeze, rhonchi or rales. No use of accessory muscles on inspiration or expiration. ABDOMEN: Soft, nontender. Nondistended. Bowel sounds heard in all 4 quadrants. No organomegaly or masses. Negative rebound, negative guarding EXTREMITIES: No edema, pulses are equal bilaterally. No cyanosis or clubbing NEUROLOGY: Mood and affect appear appropriate. Cranial nerves II through XII grossly intact. Moving all extremities, speech is clear RIGHT BREAST: Patient still have significant erythema, mainly tissue. 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 Cultures are pending at this time, continue to follow cultures. Continue vancomycin and Zosyn. -Large developing abscess with cellulitis of the left breast and axilla. Currently ultrasound shows phlegmon but no drainable fluid collections. However there is no doubt that this will continue develop into an abscess. Continue broad-spectrum IV antibiotics of vancomycin and Zosyn. Gen. Surgery consulted, no surgical approach atthis time cont IV abx. If any drainage occurs will check wound cultures. -Leukocytosis. Likely secondary to sepsis, infection. Continue monitor CBC -Acute renal failure on top of chronic kidney disease. Unknown baseline creatinine. Continue Rivas, continue IV fluids normal saline at a rate of 125 mL per hour. Renal ultrasound indicates bilateral hydronephrosis. Consulted urology, Consulted nephrology. I've requested records from her PCPs office. -Hypertension - resume Norvasc. -UTI. Continue Zosyn. Follow-up urine culture. -History of opioid addiction on methadone maintenance therapy, denies any history of IV drug abuse. resumed her home methadone dose which the ED nurse confirmed with the methadone clinic. -Hypokalemia. Continue monitor and replete as needed -Tobacco use. Cessation recommended. -Vit D deficiency Vit D of 6, Start Ergocalciferol -Hypoglycemia Start Hypoglycemic protocol -DVT prophylaxis with Lovenox. Per urology Dr. 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 Dr. Bowling does not treat that. Per urogyn Dr. Rich - he is out of town, however he is happy to follow the patient in his office next week. Patient should be continue (be discharged) with rivas. Discussed with Dr Wang nephrology. Says she needs urology as inpatient as obstruction as upstream and rivas is not helping. Reconsult urology for further evaluation. Discussed with Dr Rich uro/cupola mechanic specialist and he will evaluate the patient tomorrow. DC when improved and cleared by consultants Problem Qualifiers (1) Hydronephrosis: Qualified Code: N13.39 - Other hydronephrosis (2) Bladder infection, acute: Qualified Code: N30.00 - Acute cystitis without hematuria (3) Acute renal failure: Qualified Code: N17.9 - Acute renal failure, unspecified acute renal failure type Jen Silva MD Jun 26, 2016 16:55
[2016-06-26 20:00] VITALS: BP 160/74; PULSE 90; RESP 20; TEMP 98.6; O2SAT 99
[2016-06-26] MEDS: TEMAZEPAM 15 MG CAP PO PRN (20:31)
[2016-06-27] VITALS: BP 158/73; PULSE 80; RESP 20; TEMP 98; O2SAT 94
[2016-06-27] MEDS ORDERED: PHARMACY ORDERED LAB XX ONE (01:45)
[2016-06-27] MEDS: DOCUSATE SODIUM 100 MG CAP PO SCH ×2 (04:00→15:45)
[2016-06-27] MEDS: CHLORHEXIDINE GLUCONATE 2 % 1 PACK (2 CLOTHS)(taper/protocol) TOP SCH (04:00)
[2016-06-27 06:00] LABS: BICARBONATE 19.3 MEQ/L (21.0-32.0); POTASSIUM 3.6 MEQ/L (3.5-5.1)
[2016-06-27] MEDS: SODIUM BICARBONATE 650 MG TAB PO SCH ×3 (06:23→22:21)
[2016-06-27] MEDS: PIPERACIL-TAZO 2.25 GM PREMIX 50 ML IV SCH ×2 (06:23→13:41)
[2016-06-27] MEDS: CHOLECALCIFEROL (VIT D3) 1000 UNIT TAB PO SCH (07:54)
[2016-06-27] MEDS: METHADONE HCL 10 MG TAB PO SCH (07:55)
[2016-06-27] MEDS: SODIUM CHLORIDE 0.9% FLUSH 5 ML FLUSH FLUSH SCH ×2 (07:55→20:01)
[2016-06-27] MEDS: amLODIPine BESYLATE 5 MG TAB PO SCH ×2 (07:55→20:01)
[2016-06-27 08:00] VITALS: BP 157/75; PULSE 83; RESP 18; TEMP 97.3; O2SAT 96
[2016-06-27 09:28] LABS: TOTAL PROTEIN SPE 5.5 GM/DL (6.0-7.6)
[2016-06-27 10:05] LABS: ALBUMIN SPE 2.6 GM/DL (3.50-5.00); ALPHA 1 GLOBULIN 0.42 GM/DL (0.11-0.29); ALPHA 2 GLOBULIN 1.11 GM/DL (0.22-1.00); BETA GLOBULINS (SPE) 0.74 GM/DL (0.53-1.03)
[2016-06-27] MEDS ORDERED: VANCOMYCIN INJ 1,750 MG in SODIUM CHLORID 0.9% 500 ML INJ 500 ML IV ONE (11:00)
--- NOTE | 2016-06-27 11:07 | HHI.NPPN ---
Subjective History of Present Illness The patient is a 66 yo [place] female who presented to the ED in PO 06/22/16 after an axillary infection got worse. She recently started seeing a primary care physician for the first time in many years and was given Doxycyline within the past week for this infection. She also mentions that she was told that she had a decline in her renal functions at that visit, but she is not sure how dysfunctional. Her PMHx is limited as she admits that she was not taking care of herself within the past several years, but states hypertension that she was recently started on medication for (not sure of name). On admission, her SCr was reported at 4.00 that has worsened to 4.10 at time of consult. Renal US was done that showed a moderate bilateral hydronephrosis. The patient admits that she has been taking Aleve everyday at home for some years. No recent abx besides Doxycycline. She is not diabetic and denies any previous urological obstructions. Does mention that she has had a decrease in her urinary flow for the past several weeks. Had a hysterectomy in the past related to uterine fibroids. Denies any gynecological cancers. Interval History Pt feeling OK today. Daughter present. (Claudette Traylor) Review of Systems General Constitutional: Fatigue (Claudette Traylor) Objective Data Data 06/26/16 06/27/16 19:00 07:00 Intake Total 1515 ml 480 ml Output Total 3400 ml 2150 ml Balance -1885 ml -1670 ml Intake Oral 960 ml 480 ml IV Total 555 ml Output Urine Total 3400 ml 2150 ml # Bowel Movements 1 1 Vital Signs Date Time Temp Pulse Resp B/P Pulse Ox O2 Delivery O2 Flow Rate FiO2 06/27/16 08:55 19 06/27/16 08:00 97.3 83 18 157/75 96 06/27/16 00:00 98.0 80 20 158/73 94 06/26/16 20:00 98.6 90 20 160/74 99 06/26/16 16:00 99.9 84 20 170/76 98 06/26/16 12:00 98.3 84 19 167/76 98 (Claudette Traylor) -: 06/26/16 0430 06/27/16 0500 Physical Exam General Appearance: No Acute Distress, Comfortable, Pale (Claudette Traylor) Eyes Eye Exam: Sclera White (Claudette Traylor) Pulmonary Resp Exam: Clear Bilaterally, Breath Sounds Equal, No Distress (Claudette Traylor) Cardiology CV Exam: Regular, Normal Sinus Rhythm (Claudette Traylor) Gastrointestinal/Abdomen GI Exam: Soft, Non-Tender (Claudette Traylor) Genitourinary Exam: Clear Urine (Claudette Traylor) Integumentary Skin Exam: Clear, Warm, Dry, Intact (Claudette Traylor) Extremeties Extremities Exam: No Edema (Claudette Traylor) Neurologic Neuro Exam: Alert, Awake (Claudette Traylor) Psychiatric Psych Exam: Appropriate Responses (Cluadette Traylor) Assessment/Plan Problem List: (1) Acute renal failure Plan: SCr stable Renogram shows evidence of high-grade bilateral obstructive uropathy. Still curious as to why she is continuing to make so much urine? Awaiting uro-mold puller consult today to see plans for correction. Medications should be adjusted for the patient's estimated GFR if clinically indicated. Avoid agents with significant potential for nephrotoxicity possible including NSAIDs for analgesia, iodine contrast agents. Gadolinium is contraindicated if the GFR is below 30. (2) Hydronephrosis Plan: Presently uncertain as to the chronicity of same. May have sustained renal damage related to obstruction (Claudette Traylor) Plan The exam, history, and the medical decision-making described in the above note were completed with the assistance of the BRAVO. I reviewed and agree with the findings presented. (Jacoby Wang MD) Problem Qualifiers (1) Acute renal failure: Qualified Code: N17.9 - Acute renal failure, unspecified acute renal failure type (2) Hydronephrosis: Qualified Code: N13.39 - Other hydronephrosis Claudette Traylor Jun 27, 2016 11:07 Jacoby Wang MD Jun 28, 2016 17:55
--- NOTE | 2016-06-27 11:50 | PD.CONS ---
HPI Chief Complaint PELVIC ORGAN PROLAPSE AND MODERATE HYDRONEPHROSIS WITH TAN LARGEST BABY 11 LBS NOT SURE HOW LONG SHE HAS HAD POP S/P ROWENA DX FIBROIDS NO RECENT GLOST KILN PLACER CARE Date Seen: Jun 27, 2016 Travel History International Travel<30 Days: No Contact w/Intl Traveler<30Days: No Known Affected Area: No Allergies-Medications (Allergen,Severity, Reaction): Coded Allergies: No Known Allergies (Verified , 06/22/16) Home Meds Reported Medications Amlodipine 5 Mg Tab5 Mg PO DAILY #30 TAB Ref 0 06/22/16 Methadone 40 Mg [id number] Mg PO DAILY Ref 0 06/22/16 Discontinued Reported Medications Doxycycline Hyclate 100 Mg [id number] Mg PO DIRECTED Ref 0 06/22/16 Review of Systems Genitourinary: Decreased Urinary Output, No: Urgency, Frequency, Dysuria, Incontinence, Pelvic Pain, Vaginal Bleeding Physical Exam Narrative GENERAL: Well-nourished, well-developed patient. SKIN: Warm and dry. HEAD: Normocephalic and atraumatic. EYES: No scleral icterus. No injection or drainage. ENT: No nasal drainage noted. Mucous membranes pink. Airway patent. NECK: Supple, trachea midline. No JVD. CARDIOVASCULAR: Regular rate and rhythm without murmurs, gallops, or rubs. RESPIRATORY: Breath sounds equal bilaterally. No accessory muscle use. BREASTS: Bilateral exam showed no masses , no retractions, no nipple discharge. ABDOMEN/GI: Abdomen soft, non-tender, bowel sounds present, no rebound, no guarding GENITOURINARY: External Genitalia: STAGE 4 POP WITH POINT C +6 AND GH 10 POP EASILY REDUCED NO MASS APPRECIATED EXTREMITIES: No cyanosis or edema. BACK: Nontender without obvious deformity. No CVA tenderness. NEUROLOGICAL: Awake and alert. Data Data Vital Signs Reviewed: Yes Orders Consult Gynecology (06/27/16 09:00) (Hub Use Only)Inp Phy Cons/Ref (06/26/16 ) Urine Protein Elecrophoresis (06/27/16 06:00) Vancomycin Inj (Vancomycin Inj) (06/27/16 11:00) Random Vancomycin (06/29/16 06:00) Amlodipine (Norvasc) (06/27/16 21:00) Renal Functional Panel (06/28/16 06:00) Labs Laboratory Tests Test 106/27/16 06/27/16 13:00 05:00 06:30 Complement C3 119 Complement C4 28 Hepatitis B Surface Antigen NEGATIVE Hepatitis C Antibody NEGATIVE Total Protein 5.5 Albumin 2.60 1.9 Albumin/Globulin Ratio 0.90 Gwfbt-5-Hwibpedsm 0.42 Vqibc-4-Vutuwmidf 1.11 Beta Globulins 0.74 Gamma Globulins 0.62 Sodium Level 143 Potassium Level 3.6 Chloride Level 111 Carbon Dioxide Level 19.3 Anion Gap 13 Blood Urea Nitrogen 73 Creatinine 4.15 Estimat Glomerular Filtration 11 Rate Random Glucose 85 Calcium Level 8.0 Phosphorus Level 7.8 Random Vancomycin Level 19.9 Urine Eosinophils FEW Urine Random Creatinine 20 Urine Random Total Protein 17 Urine Protein/Creatinine Ratio 0.85 Date/Time Procedure Status Source Growth 06/22/16 14:32 Urine Culture - Final Complete Urine Catheterized Urine Escherichia Coli Klebsiella Ozaenae 06/22/16 12:15 Aerobic Blood Culture - Final Complete Blood Peripheral NO GROWTH IN 5 DAYS 06/22/16 12:15 Anaerobic Blood Culture - Final Complete Blood Peripheral NO GROWTH IN 5 DAYS MDM Medical Record Reviewed: Yes Plan PT IS POOR SURGICAL CANDIDATE AND SHE WANTS TO AVOID SURGERY IF POSSIBLE I WILL RETURN WITH PESSARIES FROM OFFICE AND ATTEMPT TO REDUCE THE POP IF NOT SUCCESSFUL WILL DISCUSS WITH UROLOGY USING STENTS OR PERCUTANEOUS NEPHROSTOMY DISCUSSED ISSUES WITH PATIENT AND DAUGHTER THIS IS A CHRONIC EVENT AND DOES NOT WARRANT A HIGH RISK SURGICAL PROCEDURE AT THIS TIME ADDENDUM: WITH NURSE IN ROOM, PROLAPSE REDUCED AND #7 RING WITH SUPPORT PESSARY WAS PLACED WITH GOOD RESULT IF THIS PESSARY FALLS OUT, WE CAN TRY ADDING AN ADDITIONAL #7; IF THAT DOESNT WORK THEN WE WILL NEED TO ORDER LARGER SIZES AND SHE CAN SEE ME AN OUTPATIENT IF SHE OTHERWISE MEETS D/C CRITERIA. CALL ME [phone] WITH ANY QUESTIONS. Admitting diagnosis: severe sepsis, right breast cellulitis, acute renal failure Condition: Serious Nikolas Rich MD Jun 27, 2016 11:50
[2016-06-27 12:00] VITALS: BP 151/78; PULSE 76; RESP 18; TEMP 96; O2SAT 96
--- NOTE | 2016-06-27 14:05 | HHI.PR ---
Subjective Remarks In nad. No cp, sob. Rash is improving. No fevers or chills. Kidney function same. No pain in her belly. Good urine OP Objective Vitals Vital Signs Date Time Temp Pulse Resp B/P Pulse Ox O2 Delivery O2 Flow Rate FiO2 06/27/16 12:00 96.0 76 18 151/78 96 06/27/16 08:55 19 06/27/16 08:00 97.3 83 18 157/75 96 06/27/16 00:00 98.0 80 20 158/73 94 06/26/16 20:00 98.6 90 20 160/74 99 06/26/16 16:00 99.9 84 20 170/76 98 I/O 06/26/16 06/26/16 06/26/16 06/27/16 06/27/16 06/27/16 07:00 15:00 23:00 07:00 15:00 23:00 Intake Total 1484 ml 1515 ml 360 ml 120 ml Output Total 1900 ml 3400 ml 950 ml 1200 ml Balance -416 ml -1885 ml -590 ml -1080 ml Intake Oral 480 ml 960 ml 360 ml 120 ml IV Total 1004 ml 555 ml Output Urine Total 1900 ml 3400 ml 950 ml 1200 ml # Bowel Movements 1 1 0 1 Result Diagram: 06/26/16 0430 06/27/16 0500 Imaging Last Impressions Renal Scan w/Medication NM 06/26/16 0000 Signed Impressions: Service Date/Time: Sunday, June 26, 2016 09:19 - CONCLUSION: Findings consistent with high-grade bilateral obstructive uropathy Franko Paez MD Renal Ultrasound 06/23/16 0000 Signed Impressions: Service Date/Time: Thursday, June 23, 2016 07:51 - CONCLUSION: 1. Moderate bilateral hydronephrosis of unknown etiology. Rivas catheter present. 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 Franko Paez MD Breast Ultrasound 06/22/16 0000 Signed Impressions: Service Date/Time: June 13:18 - CONCLUSION: 1. Phlegmonous mass in the right breast associated with edema and inflammation. No drainable fluid collections. Dillon Sharma MD Objective Remarks GENERAL: Well-developed, well-nourished, in no acute distress. alert and orientated HEENT: Head is normocephalic without any lesions or masses noted. Facial features are symmetric. Eyes: Extraocular muscles are intact. Conjunctivae were clear. NECK: Supple without any masses. Trachea midline no deviation. No JVD, CARDIAC: Regular rhythm, regular rate. S1/S2 are heard. No murmurs gallops or rubs. LUNGS: Clear to auscultation bilaterally. No wheeze, rhonchi or rales. No use of accessory muscles on inspiration or expiration. ABDOMEN: Soft, nontender. Nondistended. Bowel sounds heard in all 4 quadrants. No organomegaly or masses. Negative rebound, negative guarding EXTREMITIES: No edema, pulses are equal bilaterally. No cyanosis or clubbing NEUROLOGY: Mood and affect appear appropriate. Cranial nerves II through XII grossly intact. Moving all extremities, speech is clear RIGHT BREAST: Patient still have significant erythema, mainly tissue. 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 Cultures are pending at this time, continue to follow cultures. Continue vancomycin and Zosyn. -Large developing abscess with cellulitis of the left breast and axilla. Currently ultrasound shows phlegmon but no drainable fluid collections. However there is no doubt that this will continue develop into an abscess. Continue broad-spectrum IV antibiotics of vancomycin and Zosyn. Gen. Surgery consulted, no surgical approach atthis time cont IV abx. If any drainage occurs will check wound cultures. -Leukocytosis. Likely secondary to sepsis, infection. Continue monitor CBC -Acute renal failure on top of chronic kidney disease. Unknown baseline creatinine. Continue Rivas, continue IV fluids normal saline at a rate of 125 mL per hour. Renal ultrasound indicates bilateral hydronephrosis. Consulted urology, Consulted nephrology. I've requested records from her PCPs office. -Hypertension - resume Norvasc. -UTI. Continue Zosyn. Follow-up urine culture. -History of opioid addiction on methadone maintenance therapy, denies any history of IV drug abuse. resumed her home methadone dose which the ED nurse confirmed with the methadone clinic. -Hypokalemia. Continue monitor and replete as needed -Tobacco use. Cessation recommended. -Vit D deficiency Vit D of 6, Start Ergocalciferol -Hypoglycemia Start Hypoglycemic protocol -DVT prophylaxis with Lovenox. Per urology Dr. 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 Dr. Bowling does not treat that. Discussed with Dr Wang nephrology. Says she needs urology as inpatient as obstruction as upstream and rivas is not helping. Reconsult urology for further evaluation. Discussed with Dr Rich uro/mascara molder specialist and he will evaluate the patient today 06/27 DC when improved and cleared by consultants Problem Qualifiers (1) Hydronephrosis: Qualified Code: N13.39 - Other hydronephrosis (2) Bladder infection, acute: Qualified Code: N30.00 - Acute cystitis without hematuria (3) Acute renal failure: Qualified Code: N17.9 - Acute renal failure, unspecified acute renal failure type Jen Silva MD Jun 27, 2016 14:05
[2016-06-27] MEDS: cefTRIAXone INJ 1,000 MG in SODIUM CHLORIDE 0.9% INJ 100 ML IV SCH (15:44)
[2016-06-27] MEDS: ENOXAPARIN SODIUM 30 MG/0.3 ML SYRINGE SQ SCH (15:45)
[2016-06-27 16:00] VITALS: BP 158/75; PULSE 88; RESP 17; TEMP 99.3; O2SAT 95
[2016-06-27 20:04] VITALS: BP 154/80; PULSE 70; RESP 21; TEMP 98.5; O2SAT 97
[2016-06-27] MEDS: TEMAZEPAM 15 MG CAP PO PRN (22:21)
[2016-06-27 23:34] VITALS: BP 161/82; PULSE 100; RESP 21; TEMP 97.2; O2SAT 97
[2016-06-28] MEDS: DOCUSATE SODIUM 100 MG CAP PO SCH ×2 (03:06→09:07)
[2016-06-28 03:30] VITALS: BP 156/79; PULSE 80; RESP 18; TEMP 97.3; O2SAT 97
[2016-06-28 04:50] LABS: AUTOMATED NEUTROPHIL # 19.7 TH/MM3 (1.8-7.7); BASOPHIL # 0.1 TH/MM3 (0-0.2); BASOPHIL % 0.6 % (0.0-2.0); EOSINOPHIL # 0.5 TH/MM3 (0-0.4); HEMATOCRIT 29.6 % (35.0-46.0); LYMPH % 8.6 % (9.0-44.0); MEAN CELL VOLUME 88.1 FL (80.0-100.0); MEAN CORPUSCULAR HEMOGLOBIN 28.3 PG (27.0-34.0); MEAN CORPUSCULAR HGB CONC 32.2 % (32.0-36.0); MONO % 5.4 % (0.0-8.0); NEUT % 83.4 % (16.0-70.0); PLATELET COUNT 376 TH/MM3 (150-450); RED BLOOD COUNT 3.36 MIL/MM3 (4.00-5.30); RED CELL DISTRIBUTION WIDTH 15.1 % (11.6-17.2); WHITE BLOOD COUNT 23.6 TH/MM3 (4.0-11.0)
[2016-06-28 05:11] LABS: BICARBONATE 21.9 MEQ/L (21.0-32.0); MAGNESIUM 1.4 MG/DL (1.5-2.5); POTASSIUM 3.5 MEQ/L (3.5-5.1)
[2016-06-28 05:49] LABS: HEMO FLAGS AUTO DIFF
[2016-06-28] MEDS: SODIUM BICARBONATE 650 MG TAB PO SCH ×3 (05:56→20:41)
[2016-06-28] MEDS: CHOLECALCIFEROL (VIT D3) 1000 UNIT TAB PO SCH (07:47)
[2016-06-28] MEDS: METHADONE HCL 10 MG TAB PO SCH (07:47)
[2016-06-28] MEDS: amLODIPine BESYLATE 5 MG TAB PO SCH ×2 (07:48→20:41)
[2016-06-28] MEDS: SODIUM CHLORIDE 0.9% FLUSH 5 ML FLUSH FLUSH SCH ×2 (07:48→20:42)
[2016-06-28 07:55] VITALS: BP 167/74; PULSE 85; RESP 18; TEMP 97.7; O2SAT 98
--- NOTE | 2016-06-28 07:56 | HHI.PR ---
Subjective Subjective Notes Feels better, redness improved, pain also less. Objective Vitals/I&O Vital Signs Date Time Temp Pulse Resp B/P Pulse Ox O2 Delivery O2 Flow Rate FiO2 06/28/16 03:30 97.3 80 18 156/79 97 Labs Laboratory Tests Test 06/28/16 04:14 White Blood Count 23.6 Red Blood Count 3.36 Hemoglobin 9.5 Hematocrit 29.6 Mean Corpuscular Volume 88.1 Mean Corpuscular Hemoglobin 28.3 Mean Corpuscular Hemoglobin 32.2 Concent Red Cell Distribution Width 15.1 Platelet Count 376 Mean Platelet Volume 7.6 Neutrophils (%) (Auto) 83.4 Lymphocytes (%) (Auto) 8.6 Monocytes (%) (Auto) 5.4 Eosinophils (%) (Auto) 2.0 Basophils (%) (Auto) 0.6 Neutrophils # (Auto) 19.7 Lymphocytes # (Auto) 2.0 Monocytes # (Auto) 1.3 Eosinophils # (Auto) 0.5 Basophils # (Auto) 0.1 CBC Comment AUTO DIFF Sodium Level 143 Potassium Level 3.5 Chloride Level 109 Carbon Dioxide Level 21.9 Anion Gap 12 Blood Urea Nitrogen 67 Creatinine 3.61 Estimat Glomerular Filtration 13 Rate Random Glucose 74 Calcium Level 8.1 Magnesium Level 1.4 Narrative Exam even less erythema present today. There are two small areas of persistent mild erythema, edema, they are mildly tender. Overall area of erythema has significantly reduced. No definite area of fluctuance. A/P Assessment and Plan R axillary, lateral breast/chest wall cellulitis. Overall improved. No clinical drainable fluid collection at this time. Continue current abx therapy, will follow every other day to ensure no drainable collection develops. Pt is comfortable with continued abx treatment. I will follow while she is here , I can see in office next week if she is discharged. Naren Cortez MD Jun 28, 2016 07:56
[2016-06-28 08:52] LABS: BANDS 7 % (0-6); EOSINOPHILS 2 % (0-4); METAMYELOCYTES 1 % (0-1); MYELOCYTES 6 % (0-0); NEUTROPHIL # MANUAL DIFF 19.6 TH/MM3 (1.8-7.7); PLATELET ESTIMATE SMEAR NORMAL (NORMAL); PLATELET MORPHOLOGY NORMAL (NORMAL); POLYS (SEG NEUTROPHILS) 69 % (16-70); SCAN/DIFF FINAL DIFF MANUAL; WBC DIFF SAMPLE 100
--- NOTE | 2016-06-28 11:16 | HHI.PR ---
Subjective Remarks Had a pessary placed yesterday, however the patient had a BM yesterday and pessary fell off. Plan for adjustement per Paola Rich. Patient denies any pain. No fever or chills. No n/v/d/c. Objective Vitals Vital Signs Date Time Temp Pulse Resp B/P Pulse Ox O2 Delivery O2 Flow Rate FiO2 06/28/16 08:47 18 06/28/16 07:55 97.7 85 18 167/74 98 06/28/16 03:30 97.3 80 18 156/79 97 06/27/16 23:34 97.2 100 21 161/82 97 06/27/16 20:04 98.5 70 21 154/80 97 06/27/16 16:00 99.3 88 17 158/75 95 06/27/16 12:00 96.0 76 18 151/78 96 I/O 06/27/16 06/27/16 06/27/16 06/28/16 06/28/16 06/28/16 07:00 15:00 23:00 07:00 15:00 23:00 Intake Total 120 ml 651 ml 480 ml 580 ml 120 ml Output Total 1200 ml 2300 ml 1000 ml 1700 ml Balance -1080 ml -1649 ml -520 ml -1120 ml 120 ml Intake Oral 120 ml 240 ml 480 ml 580 ml 120 ml IV Total 411 ml Output Urine Total 1200 ml 2300 ml 1000 ml 1700 ml # Bowel Movements 1 1 2 Result Diagram: 06/28/16 0414 06/28/16 0414 Imaging Last Impressions Renal Scan w/Medication NM 06/26/16 0000 Signed Impressions: Service Date/Time: Sunday, June 26, 2016 09:19 - CONCLUSION: Findings consistent with high-grade bilateral obstructive uropathy Franko Paez MD Renal Ultrasound 06/23/16 0000 Signed Impressions: Service Date/Time: Thursday, June 23, 2016 07:51 - CONCLUSION: 1. Moderate bilateral hydronephrosis of unknown etiology. Rivas catheter present. 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 Franko Paez MD Breast Ultrasound 06/22/16 0000 Signed Impressions: Service Date/Time: June 13:18 - CONCLUSION: 1. Phlegmonous mass in the right breast associated with edema and inflammation. No drainable fluid collections. Dillon Sharma MD Objective Remarks GENERAL: Well-developed, well-nourished, in no acute distress. alert and orientated HEENT: Head is normocephalic without any lesions or masses noted. Facial features are symmetric. Eyes: Extraocular muscles are intact. Conjunctivae were clear. NECK: Supple without any masses. Trachea midline no deviation. No JVD, CARDIAC: Regular rhythm, regular rate. S1/S2 are heard. No murmurs gallops or rubs. LUNGS: Clear to auscultation bilaterally. No wheeze, rhonchi or rales. No use of accessory muscles on inspiration or expiration. ABDOMEN: Soft, nontender. Nondistended. Bowel sounds heard in all 4 quadrants. No organomegaly or masses. Negative rebound, negative guarding EXTREMITIES: No edema, pulses are equal bilaterally. No cyanosis or clubbing NEUROLOGY: Mood and affect appear appropriate. Cranial nerves II through XII grossly intact. Moving all extremities, speech is clear RIGHT BREAST: Patient still have significant erythema, mainly tissue. 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 Cultures are pending at this time, continue to follow cultures. Continue vancomycin and Zosyn. -Large developing abscess with cellulitis of the left breast and axilla. Currently ultrasound shows phlegmon but no drainable fluid collections. However there is no doubt that this will continue develop into an abscess. Continue broad-spectrum IV antibiotics of vancomycin and Zosyn. Gen. Surgery consulted, no surgical approach atthis time cont IV abx. If any drainage occurs will check wound cultures. -Leukocytosis. Likely secondary to sepsis, infection. Continue monitor CBC -Acute renal failure on top of chronic kidney disease. Unknown baseline creatinine. Continue Rivas, continue IV fluids normal saline. Renal ultrasound indicates bilateral hydronephrosis. Consulted urology, Consulted nephrology. Patient has mechanical obstruction 2/2 prolapse. [facility] following, had pessary placed 06/27, however needs further adjustments. -Hypertension - resume Norvasc. -UTI. Continue Zosyn. Follow-up urine culture. -History of opioid addiction on methadone maintenance therapy, denies any history of IV drug abuse. resumed her home methadone dose which the ED nurse confirmed with the methadone clinic. -Hypokalemia. Continue monitor and replete as needed -Tobacco use. Cessation recommended. -Vit D deficiency Vit D of 6, Start Ergocalciferol -Hypoglycemia Start Hypoglycemic protocol -DVT prophylaxis with Lovenox. Per urology Dr. 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 Dr. Bowling does not treat that. Discussed with Dr Wang nephrology. Says she needs urology as inpatient as obstruction as upstream and rivas is not helping. Reconsult urology for further evaluation. Discussed with Dr Rich uro/fuel injection servicer specialist and he evaluated the patient 06/27 DC when improved and cleared by consultants Problem Qualifiers (1) Hydronephrosis: Qualified Code: N13.39 - Other hydronephrosis (2) Bladder infection, acute: Qualified Code: N30.00 - Acute cystitis without hematuria (3) Acute renal failure: Qualified Code: N17.9 - Acute renal failure, unspecified acute renal failure type Jen Silva MD Jun 28, 2016 11:16
[2016-06-28 12:00] VITALS: BP 138/67; PULSE 81; RESP 18; TEMP 99.5; O2SAT 95
[2016-06-28 12:57] LABS: URINE TOTAL PROTEIN TIMED 17.9 MG/DL
[2016-06-28] MEDS: cefTRIAXone INJ 1,000 MG in SODIUM CHLORIDE 0.9% INJ 100 ML IV SCH (13:53)
[2016-06-28 15:27] LABS: ANA SCREEN NEG (NEG)
--- NOTE | 2016-06-28 15:35 | HHI.NPPN ---
Subjective History of Present Illness The patient is a 66 yo [place] female who presented to the ED in [place] 06/22/16 after an axillary infection got worse. She recently started seeing a primary care physician for the first time in many years and was given Doxycyline within the past week for this infection. She also mentions that she was told that she had a decline in her renal functions at that visit, but she is not sure how dysfunctional. Her PMHx is limited as she admits that she was not taking care of herself within the past several years, but states hypertension that she was recently started on medication for (not sure of name). On admission, her SCr was reported at 4.00 that has worsened to 4.10 at time of consult. Renal US was done that showed a moderate bilateral hydronephrosis. The patient admits that she has been taking Aleve everyday at home for some years. No recent abx besides Doxycycline. She is not diabetic and denies any previous urological obstructions. Does mention that she has had a decrease in her urinary flow for the past several weeks. Had a hysterectomy in the past related to uterine fibroids. Denies any gynecological cancers. Interval History Fit for pessary last evening but was too small. GUNNER MATE coming back today for re- evaluation. (Claudette Traylor) Review of Systems General Constitutional: Fatigue (Claudette Traylor) Objective Data Data 06/27/16 06/28/16 19:00 07:00 Intake Total 651 ml 1060 ml Output Total 2300 ml 2700 ml Balance -1649 ml -1640 ml Intake Oral 240 ml 1060 ml IV Total 411 ml Output Urine Total 2300 ml 2700 ml # Bowel Movements 1 2 Vital Signs Date Time Temp Pulse Resp B/P Pulse Ox O2 Delivery O2 Flow Rate FiO2 06/28/16 12:00 99.5 81 18 138/67 95 06/28/16 08:47 18 06/28/16 07:55 97.7 85 18 167/74 98 06/28/16 03:30 97.3 80 18 156/79 97 06/27/16 23:34 97.2 100 21 161/82 97 06/27/16 20:04 98.5 70 21 154/80 97 06/27/16 16:00 99.3 88 17 158/75 95 (Claudette Traylor) -: 06/28/16 0414 06/28/16 0414 Medication Review Current Medications Medications (Trade) Dose Ordered Sig/Elinor Route Start Time Stop Time Status Last Admin (NS Flush) 2 ml UNSCH PRN FLUSH 06/22/16 15:15 (NS Flush) 2 ml BID FLUSH 06/22/16 21:00 06/28/16 07:48 (Tylenol) 650 mg Q4H PRN PO 06/22/16 15:15 (Colace) 100 mg Q12H PO 06/22/16 16:00 06/28/16 09:07 (Milk Of Magnesia Liq) 30 ml Q12H PRN PO 06/22/16 15:15 (Restoril) 15 mg HS PRN PO 06/22/16 15:15 06/27/16 22:21 (Lovenox Inj) 30 mg Q24H SQ 06/22/16 16:00 06/27/16 15:45 Naloxone HCl 0.4 mg 0.4 mg UNSCH PRN IV 06/22/16 15:15 (Vancomycin Consult Pharmacy) 0 ml @ 0 mls/hr UNSCH XX 06/22/16 15:15 (Dolophine) 110 mg DAILY PO 06/23/16 09:00 06/28/16 07:47 Miscellaneous Information Patient in critical care unit? Ass... [id number] XX 06/22/16 22:00 06/22/16 22:00 (Vitamin D3) 2,000 units DAILY PO 06/23/16 18:00 06/28/16 07:47 (D50w (Vial) Inj) 25 ml UNSCH PRN IV PUSH 06/24/16 07:15 (Glucagon Inj) 1 mg UNSCH PRN OTHER 06/24/16 07:15 (Drisdol) 50,000 units Q7D PO 06/24/16 08:00 06/24/16 08:40 (Sodium Bicarbonate) 1,300 mg Q8HR PO 06/26/16 14:00 06/28/16 13:53 Amlodipine Besylate 5 mg 5 mg BID PO 06/27/16 21:00 06/28/16 07:48 (Rocephin Inj/NS Inj) 100 ml @ 200 mls/hr Q24H IV 06/27/16 15:00 06/28/16 13:53 (Claudette Traylor) Physical Exam General Appearance: No Acute Distress, Comfortable, Pale (Claudette Traylor) Eyes Eye Exam: Sclera White (Claudette Traylor) Pulmonary Resp Exam: Clear Bilaterally, Breath Sounds Equal, No Distress (Claudette Traylor) Cardiology CV Exam: Regular, Normal Sinus Rhythm (Claudette Traylor) Gastrointestinal/Abdomen GI Exam: Soft, Non-Tender (Claudette Traylor) Genitourinary Exam: Clear Urine (Claudette Traylor) Integumentary Skin Exam: Clear, Warm, Dry, Intact (Claudette Traylor) Extremeties Extremities Exam: No Edema (Claudette Traylor) Neurologic Neuro Exam: Alert, Awake (Claudette Traylor) Psychiatric Psych Exam: Appropriate Responses (Claudette Traylor) Assessment/Plan Problem List: (1) Acute renal failure Plan: SCr improved slightly. Renogram shows evidence of high-grade bilateral obstructive uropathy. Still curious as to why she is continuing to make so much urine? Appreciate GUNNER MATE consultation. Hopefully with correction of prolapse, renal functions will continue to improve. Of interest, she did have presence of urine eosinophils which potentially raises concerns for an interstitial nephritis. As per history, she was taking an excessive amount of Aleve which can be associated with an AIN. Medications should be adjusted for the patient's estimated GFR if clinically indicated. Avoid agents with significant potential for nephrotoxicity possible including NSAIDs for analgesia, iodine contrast agents. Gadolinium is contraindicated if the GFR is below 30. (2) Hydronephrosis Plan: Presently uncertain as to the chronicity of same. May have sustained renal damage related to obstruction (Claudette Traylor) Plan Uncertain as to duration of the patient's obstructive uropathy and the patient may not recover significant renal function but this remains be determined. Despite report of persisting obstruction on Lasix renogram patient is still maintaining very good urine output. She may have a partial obstructive uropathy. The pessary will be replaced by GUNNER MATE and subsequently will monitor renal function for any further significant improvement. I discussed with the patient and her daughter current status of her renal function which is based on GFR stage V and I reviewed with them the implications if her renal function does not improve improved to any significant degree including the possibility of the patient may require dialytic support in the not too distant future. The exam, history, and the medical decision-making described in the above note were completed with the assistance of the BRAVO. I reviewed and agree with the findings presented. I attest that I had a [id number] encounter with the patient on the same day, and personally performed and documented my assessment and findings in the medical record. (Jacoby aWng MD) Problem Qualifiers (1) Acute renal failure: Qualified Code: N17.9 - Acute renal failure, unspecified acute renal failure type (2) Hydronephrosis: Qualified Code: N13.39 - Other hydronephrosis Claudette Traylor Jun 28, 2016 15:35 Jacoby Wang MD Jun 28, 2016 17:58
[2016-06-28 16:00] VITALS: BP 142/64; PULSE 89; RESP 17; TEMP 98.7; O2SAT 96
[2016-06-28] MEDS: ENOXAPARIN SODIUM 30 MG/0.3 ML SYRINGE SQ SCH (16:35)
[2016-06-28 20:23] VITALS: BP 164/83; PULSE 85; RESP 21; TEMP 98.3; O2SAT 95
[2016-06-29 00:15] VITALS: BP 146/79; PULSE 89; RESP 20; TEMP 98.9; O2SAT 96
[2016-06-29] MEDS: DOCUSATE SODIUM 100 MG CAP PO SCH ×2 (04:00→10:11)
[2016-06-29 04:47] LABS: BASOPHIL # 0.1 TH/MM3 (0-0.2); BASOPHIL % 0.4 % (0.0-2.0); EOSINOPHIL # 0.5 TH/MM3 (0-0.4); EOSINOPHIL % 2.2 % (0.0-4.0); HEMATOCRIT 28.1 % (35.0-46.0); LYMPHOCYTE # 2.2 TH/MM3 (1.0-4.8); MEAN CELL VOLUME 88.9 FL (80.0-100.0); MEAN CORPUSCULAR HEMOGLOBIN 28.5 PG (27.0-34.0); MEAN CORPUSCULAR HGB CONC 32.1 % (32.0-36.0); MONO % 4.5 % (0.0-8.0); NEUT % 82.9 % (16.0-70.0); PLATELET COUNT 384 TH/MM3 (150-450); RED BLOOD COUNT 3.17 MIL/MM3 (4.00-5.30); RED CELL DISTRIBUTION WIDTH 15.4 % (11.6-17.2); WHITE BLOOD COUNT 21.7 TH/MM3 (4.0-11.0)
[2016-06-29 04:49] LABS: HEMO FLAGS AUTO DIFF
[2016-06-29 05:03] LABS: BICARBONATE 24.3 MEQ/L (21.0-32.0); POTASSIUM 3.6 MEQ/L (3.5-5.1)
[2016-06-29] MEDS: SODIUM BICARBONATE 650 MG TAB PO SCH ×3 (05:17→20:52)
[2016-06-29 05:30] LABS: BANDS 6 % (0-6); EOSINOPHILS 4 % (0-4); METAMYELOCYTES 5 % (0-1); NEUTROPHIL # MANUAL DIFF 17.6 TH/MM3 (1.8-7.7); POLYS (SEG NEUTROPHILS) 69 % (16-70); PROMYELOCYTES 1 % (0-0); WBC DIFF SAMPLE 100
[2016-06-29 05:31] LABS: PLATELET ESTIMATE SMEAR NORMAL (NORMAL); PLATELET MORPHOLOGY NORMAL (NORMAL); SCAN/DIFF FINAL DIFF MANUAL
[2016-06-29 08:00] VITALS: BP 158/76; PULSE 81; RESP 17; TEMP 98.8; O2SAT 94
[2016-06-29] MEDS: CHOLECALCIFEROL (VIT D3) 1000 UNIT TAB PO SCH (08:02)
[2016-06-29] MEDS: amLODIPine BESYLATE 5 MG TAB PO SCH ×2 (08:02→20:52)
[2016-06-29] MEDS: METHADONE HCL 10 MG TAB PO SCH (08:02)
[2016-06-29] MEDS: SODIUM CHLORIDE 0.9% FLUSH 5 ML FLUSH FLUSH SCH ×2 (08:07→20:53)
--- NOTE | 2016-06-29 11:03 | HHI.PR ---
Subjective Remarks In the chair. Says she feels improved somehow today. Rash is improving however there is persistent fluctuating mass on lateral aspect and plan for I&D by surgery today. No fevers or chills. Has a BM last night. Was able to ambulate more yesterday. Needs pessary to be placed back on, computer security coordinator following as well. Objective Vitals Vital Signs Date Time Temp Pulse Resp B/P Pulse Ox O2 Delivery O2 Flow Rate FiO2 06/29/16 08:11 Nasal Cannula 2.00 Humidified 06/29/16 08:00 98.8 81 17 158/76 94 06/29/16 00:15 98.9 89 20 146/79 96 06/28/16 20:23 98.3 85 21 164/83 95 06/28/16 16:00 98.7 89 17 142/64 96 06/28/16 12:00 99.5 81 18 138/67 95 I/O 06/28/16 06/28/16 06/28/16 06/29/16 06/29/16 06/29/16 07:00 15:00 23:00 07:00 15:00 23:00 Intake Total 580 ml 740 ml 480 ml 480 ml Output Total 1700 ml 400 ml 2000 ml 1800 ml Balance -1120 ml 340 ml -1520 ml -1320 ml Intake Oral 580 ml 740 ml 480 ml 480 ml IV Total 0 ml 0 ml Output Urine Total 1700 ml 400 ml 2000 ml 1800 ml # Bowel Movements 2 1 1 2 Result Diagram: 06/29/16 0335 06/29/16 033 Objective Remarks GENERAL: Well-developed, well-nourished, in no acute distress. alert and orientated HEENT: Head is normocephalic without any lesions or masses noted. Facial features are symmetric. Eyes: Extraocular muscles are intact. Conjunctivae were clear. NECK: Supple without any masses. Trachea midline no deviation. No JVD, CARDIAC: Regular rhythm, regular rate. S1/S2 are heard. No murmurs gallops or rubs. LUNGS: Clear to auscultation bilaterally. No wheeze, rhonchi or rales. No use of accessory muscles on inspiration or expiration. ABDOMEN: Soft, nontender. Nondistended. Bowel sounds heard in all 4 quadrants. No organomegaly or masses. Negative rebound, negative guarding EXTREMITIES: No edema, pulses are equal bilaterally. No cyanosis or clubbing NEUROLOGY: Mood and affect appear appropriate. Cranial nerves II through XII grossly intact. Moving all extremities, speech is clear RIGHT BREAST: Patient still have significant erythema, mainly tissue. 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 Cultures are pending at this time, continue to follow cultures. Continue vancomycin and Zosyn. -Large developing abscess with cellulitis of the left breast and axilla. Currently ultrasound shows phlegmon but no drainable fluid collections. However there is no doubt that this will continue develop into an abscess. Continue broad-spectrum IV antibiotics of vancomycin and Zosyn. Gen. Surgery consulted, no surgical approach atthis time cont IV abx. If any drainage occurs will check wound cultures. -Leukocytosis. Likely secondary to sepsis, infection. Continue monitor CBC -Acute renal failure on top of chronic kidney disease. Unknown baseline creatinine. Continue Rivas, continue IV fluids normal saline. Renal ultrasound indicates bilateral hydronephrosis. Consulted urology, Consulted nephrology. Patient has mechanical obstruction 2/2 prolapse. Specialist Field Engineer following, had pessary placed 06/27, however needs further adjustments. -Hypertension - resume Norvasc. -UTI. Continue Zosyn. Follow-up urine culture. -History of opioid addiction on methadone maintenance therapy, denies any history of IV drug abuse. resumed her home methadone dose which the ED nurse confirmed with the methadone clinic. -Hypokalemia. Continue monitor and replete as needed -Tobacco use. Cessation recommended. -Vit D deficiency Vit D of 6, Start Ergocalciferol -Hypoglycemia , on Hypoglycemic protocol -DVT prophylaxis with Lovenox. Per urology Dr. 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 Dr. Bowling does not treat that. Discussed with Dr Wang nephrology. Says she needs urology as inpatient as obstruction as upstream and rivas is not helping. Reconsult urology for further evaluation. Discussed with Dr Rich uro/log sorter specialist and he evaluated the patient . Now with [address] Plan britany colpocleisis as OP per Dr Rich if need. Also patient to follow up with Dr Jonathon Madrigal urology as OP. DC when improved and cleared by consultants. Plan for I&D 06/30/16 of right breast abscess by surgical team. Also ID consulted 06/29 for abx at DC Continue to monitor kidney function, improving. Problem Qualifiers (1) Hydronephrosis: Qualified Code: N13.39 - Other hydronephrosis (2) Bladder infection, acute: Qualified Code: N30.00 - Acute cystitis without hematuria (3) Acute renal failure: Qualified Code: N17.9 - Acute renal failure, unspecified acute renal failure type Jen Silva MD Jun 29, 2016 11:03
--- NOTE | 2016-06-29 11:40 | HHI.PR ---
Subjective Subjective Notes feels good, has maybe a little malodorous drainage. Objective Vitals/I&O Vital Signs Date Time Temp Pulse Resp B/P Pulse Ox O2 Delivery O2 Flow Rate FiO2 06/29/16 08:11 Nasal Cannula 2.00 Humidified 06/29/16 08:00 98.8 81 17 158/76 94 Labs Laboratory Tests Test 06/28/16 06/29/16 11:55 03:35 Urine Total Volume 24 Hours 5850 Urine Total Protein 24 Hour 1047 White Blood Count 21.7 Red Blood Count 3.17 Hemoglobin 9.0 Hematocrit 28.1 Mean Corpuscular Volume 88.9 Mean Corpuscular Hemoglobin 28.5 Mean Corpuscular Hemoglobin 32.1 Concent Red Cell Distribution Width 15.4 Platelet Count 384 Mean Platelet Volume 7.7 Neutrophils (%) (Auto) 82.9 Lymphocytes (%) (Auto) 10.0 Monocytes (%) (Auto) 4.5 Eosinophils (%) (Auto) 2.2 Basophils (%) (Auto) 0.4 Neutrophils # (Auto) 18.0 Lymphocytes # (Auto) 2.2 Monocytes # (Auto) 1.0 Eosinophils # (Auto) 0.5 Basophils # (Auto) 0.1 CBC Comment AUTO DIFF Differential Total Cells 100 Counted Neutrophils % (Manual) 69 Band Neutrophils % 6 Lymphocytes % 10 Monocytes % 5 Eosinophils % 4 Neutrophils # (Manual) 17.6 Metamyelocytes 5 Promyelocytes 1 Differential Comment FINAL DIFF MANUAL Platelet Estimate NORMAL Platelet Morphology Comment NORMAL Sodium Level 142 Potassium Level 3.6 Chloride Level 107 Carbon Dioxide Level 24.3 Anion Gap 11 Blood Urea Nitrogen 63 Creatinine 3.38 Estimat Glomerular Filtration 14 Rate Random Glucose 78 Calcium Level 8.5 Random Vancomycin Level 22.3 Narrative Exam everything looks better, less erythema, etc. There are now two areas that have developed that look like they will benefit from drainage. A/P Assessment and Plan R axillary, lateral breast/chest wall cellulitis. Overall improved. D/W pt options, she would like to do I and D at bedside. D/W pts RN and plans to come back later today for I and D. Jessica DIAZ to order supplies, I will come back after office today to do I and D at bedside under straight local. Naren Cortez MD Jun 29, 2016 11:40
[2016-06-29 12:00] VITALS: BP 135/67; PULSE 79; RESP 18; TEMP 98.5; O2SAT 92
--- NOTE | 2016-06-29 12:26 | HHI.PR ---
Subjective Remarks #7 RING WITH SUPPORT FELL OUT WHILE HAVING BM FELT BETTER WITH PESSARY IN PLACE AND CR HAS IMPROVED Objective Vital Signs Vital Signs Date Time Temp Pulse Resp B/P Pulse Ox O2 Delivery O2 Flow Rate FiO2 06/29/16 12:00 98.5 79 18 135/67 92 06/29/16 08:11 Nasal Cannula 2.00 Humidified 06/29/16 08:00 98.8 81 17 158/76 94 06/29/16 00:15 98.9 89 20 146/79 96 06/28/16 20:23 98.3 85 21 164/83 95 06/28/16 16:00 98.7 89 17 142/64 96 I/O 06/28/16 06/28/16 06/28/16 06/29/16 06/29/16 06/29/16 07:00 15:00 23:00 07:00 15:00 23:00 Intake Total 580 ml 740 ml 480 ml 480 ml Output Total 1700 ml 400 ml 2000 ml 1800 ml Balance -1120 ml 340 ml -1520 ml -1320 ml Intake Oral 580 ml 740 ml 480 ml 480 ml IV Total 0 ml 0 ml Output Urine Total 1700 ml 400 ml 2000 ml 1800 ml # Bowel Movements 2 1 1 2 Result Diagram: 06/29/16 0335 06/29/16 033 Imaging Kidney US and CT scan images and reports personally reviewed. Objective Remarks 06-25-16: Cr & eGFR both stable as expected. WBC improving slowly. Urine C&S reviewed. 2 Gram neg. orgs. Sensitivities indicate both community orgs. Rivas remains in place. Assessment and Plan Problem List: (1) Hydronephrosis ICD Code: N13.30 Status: Chronic Assessment and Plan: Because of the chcf pelvic prolapse this bilateral hydronephrosis is also truck terminal manager and chronic and apparently is being well tolerated. No acute Urological intervention (ie: stents) is indicated at present. Technically, finding the ureteral orifices inside the bladder may by difficult; and if found, the kinking of the distal ureters may make passage of stents extremely difficult, if not impossible. The hydronephrosis may not completely resolve even after pelvic prolapse surgery , with or without urinary stents, if it has been present long enough. (2) Chronic renal failure ICD Code: N18.9 Status: Chronic Assessment and Plan: Renal failure is presumed to be chronic because of the chronicity of the bilateral hydronephrosis. F/U with serial Creatinines will determine if failure is stable or worsening or hopefully is improving with truck terminal manager rivas catheter drainage. If renal function progressively deteriorates then urinary stent placement can be attempted. (3) Bladder infection, acute ICD Code: N30.00 Status: Acute Assessment and Plan: Cause of dysuria. Being Rxed. Rivas catheter is helping the UTI by drainage. (4) Female bladder prolapse ICD Code: N81.10 Status: Chronic Assessment and Plan: Is the underlying cause of the bilateral hydronephrosis. Correcting the prolapse surgically should remove the external compression on the ureters and give better drainage and reduce the hydronephrosis. Needs OPTOMETRIST PRESIDENT/PRACTICE OWNER consult for this. TWO #7 PESSARIES WERE PLACED WITH NURSE IN ROOM IF THESE FALL OUT SHE WILL NEED SPECIAL ORDERED #9 OR 10. THIS IS A CHRONIC CONDITION AND NOT EMERGENT. SHE CAN F/U IN MY OFFICE AND ONCE THE BREAST AND PULMONARY ISSUES ARE RESOLVED, WE CAN THEN MOVE TO COLPOCLEISIS. DISCUSSED WITH DR NICO HAYNES REGARDING STENTS AND HE CAN BE CONSULTED IF NEPHROLOGY IS CONCERNED. DISCUSSED ISSUES WITH PT AND SHE AGREES WITH PLAN. SHE CAN F/U IN MY OFFICE WITHIN A WEEK OR SO AFTER D/C HOME OFFICE # [phone] (5) Severe sepsis ICD Code: A41.9 Status: Acute Assessment and Plan: Could be due to the breast cellulitis &/or the UTI. Both are improving. Assessment and Plan 06-24-16: Urologically: Leave rivas catheter in place for at least 2 weeks while following serum Cr. Hopefully, this will help improve the kidney function. If not, then pelvic surgery on the prolapse is the Rx of choice. 06-25-16: Urologically stable. REC: See above. Of most importance is for her to have the pelvic prolapse surgically treated by OPTOMETRIST PRESIDENT/PRACTICE OWNER with close F/U Urologically in hopes that then the hydronephrosis will improve. F/U [facility]: Jonathon Diallo at [phone] depending on her insurance. Problem Qualifiers (1) Hydronephrosis: Qualified Code: N13.39 - Other hydronephrosis (2) Bladder infection, acute: Qualified Code: N30.00 - Acute cystitis without hematuria Nikolas Rich MD Jun 29, 2016 12:26
[2016-06-29] MEDS ORDERED: LIDOCAINE 1%/EPINEPHrine 1:100,000 SOLN 20 ML VIAL INFIL ONE (12:45)
--- NOTE | 2016-06-29 13:19 | PD.CONS ---
History of Present Illness Service Infectious Disease Consult Requested By Dr Koki Silva Reason for Consult Evaluate patient with persistent leukocytosis Primary Care Physician Christian Contreras MD Diagnoses: History of Present Illness Patient seen and examined. Records reviewed. Patient is a 66-year-old female, presented to the hospital complaining of redness, pain, and swelling in her right axilla which apparently started about a week prior to coming into the hospital. Patient has not really been to a primary care physician probably for more than 6 years. She finally saw a physician and had a physical exam as well as some blood work done. The blood work showed that she baldwin has acute renal failure, and she was being referred to a kidney specialist. She went back again to have her primary care physician look at the pain and swelling in her right axilla, and she was given doxycycline. However the redness started increasing in size, and she was having more pain. She denies any fever or chills or sweats. She denies any other symptoms as far as respiratory complaint, GI or any dysuria. She had noted that she has had decrease urination. On presentation she was found to have a large cellulitis on her right breast area. Imaging study did not show any fluid collection but there was some phlegmon changes. She was initially in [place], and was transferred to the main hospital for possible surgical treatment. Surgery saw the patient and it was felt that there was no drainable fluid collection, and recommended continuing IV antibiotics. Patient also was found to have acute renal failure, and was diagnosed to have pelvic prolapse. Patient stated that she has had bladder prolapse as what she calls it for a long time, but it has not really been a big problem until recently because a lot more prolapse has been visible. Urology saw the patient, and had recommended that the pelvic prolapse be corrected, and hopefully it would bilateral chronic hydronephrosis which was seen on CT. She had evidence of urinary tract infection as well, and the urine culture grew Escherichia coli and Klebsiella. Patient has been afebrile. She has had persistent leukocytosis. Her creatinine is slowly improving. She has a Cárdenas catheter in place, and has good urine output. The redness in her right axilla and right breast area has been improving, but looks like she may be developing a fluctuant area. Gynecology saw the patient today, and a ring was placed and the prolapse was reduced. Infectious disease consultation has been requested to evaluate the patient with persistent leukocytosis. Patient is currently on Rocephin and vancomycin. Review of Systems Constitutional: DENIES: Fever, Chills Eyes: DENIES: Eye pain Ears, nose, mouth, throat: DENIES: Nasal discharge, Oral lesions, Throat pain, Ear Pain, Running Nose, Sinus Pain Respiratory: DENIES: Cough, Shortness of breath Cardiovascular: DENIES: Chest pain, Palpitations Gastrointestinal: DENIES: Abdominal pain, Nausea, Vomiting Genitourinary: DENIES: Hematuria Musculoskeletal: DENIES: Joint pain, Stiffness Integumentary: COMPLAINS OF: Rash, Breast skin changes Neurologic: DENIES: Headache Psychiatric: DENIES: Anxiety, Confusion Past Family Social History Allergies: Coded Allergies: No Known Allergies (Verified , 06/22/16) Past Medical History Hypertension Chronic kidney disease History of opioid addiction on methadone maintenance therapy , all vaginal deliveries Past Surgical History None Active Ordered Medications Tylenol Norvasc Rocephin Cholecalciferol Colace Lovenox Ergocalciferol MOM Methadone Sodium bicarbonate Restoril Vancomycin Social History Lives with ex- Smokes 1 ppd Previous narcotic dependence, on methadone now No alcohol abuse Physical Exam Vital Signs Vital Signs Date Time Temp Pulse Resp B/P Pulse Ox O2 Delivery O2 Flow Rate FiO2 06/29/16 12:00 98.5 79 18 135/67 92 06/29/16 08:11 Nasal Cannula 2.00 Humidified 06/29/16 08:00 98.8 81 17 158/76 94 06/29/16 00:15 98.9 89 20 146/79 96 06/28/16 20:23 98.3 85 21 164/83 95 06/28/16 16:00 98.7 89 17 142/64 96 Physical Exam GENERAL: This is a well-nourished, well-developed female, awake and alert, in no apparent distress. SKIN: Cool and dry. No generalized rash, no ecchymosis. She has scattered areas of healed lesions in her UE and legs, that she attributes to prior wounds due to bites or from plants HEAD: Atraumatic. Normocephalic. No temporal or scalp tenderness. EYES: [place] conjunctivae. Pupils equal round and reactive. Extraocular motions intact. No scleral icterus. No injection or drainage. ENT: Nose without bleeding, or purulent drainage. Moist oral mucosa. Throat without erythema, tonsillar hypertrophy or exudate. Uvula midline. Airway patent. NECK: Trachea midline. No JVD or lymphadenopathy. Supple, nontender, no meningeal signs. CARDIOVASCULAR: Regular rate and rhythm without murmurs, gallops, or rubs. RESPIRATORY: Clear to auscultation. Breath sounds equal bilaterally. No wheezes , rales, or rhonchi. BREAST: Has significant area of redness and induration R breast into lateral chest wall, with multiple areas that are somewhat soft nodular, and may be developing some fluctuance GASTROINTESTINAL: Abdomen soft, non-tender, nondistended. Bowel sounds are present and normoactive. No hepato-splenomegaly, or palpable masses. No guarding. MUSCULOSKELETAL: Extremities without clubbing, cyanosis, or edema. No joint tenderness, effusion, or edema noted. No calf tenderness. Negative Homans sign bilaterally. NEUROLOGICAL: Awake and alert. Cranial nerves II through XII intact. Motor and sensory grossly within normal limits. Five out of 5 muscle strength in all muscle groups. Normal speech. PSYCH: Calm and cooperative Laboratory Laboratory Tests Test 06/29/16 03:35 White Blood Count 21.7 Red Blood Count 3.17 Hemoglobin 9.0 Hematocrit 28.1 Mean Corpuscular Volume 88.9 Mean Corpuscular Hemoglobin 28.5 Mean Corpuscular Hemoglobin 32.1 Concent Red Cell Distribution Width 15.4 Platelet Count 384 Mean Platelet Volume 7.7 Neutrophils (%) (Auto) 82.9 Lymphocytes (%) (Auto) 10.0 Monocytes (%) (Auto) 4.5 Eosinophils (%) (Auto) 2.2 Basophils (%) (Auto) 0.4 Neutrophils # (Auto) 18.0 Lymphocytes # (Auto) 2.2 Monocytes # (Auto) 1.0 Eosinophils # (Auto) 0.5 Basophils # (Auto) 0.1 CBC Comment AUTO DIFF Differential Total Cells 100 Counted Neutrophils % (Manual) 69 Band Neutrophils % 6 Lymphocytes % 10 Monocytes % 5 Eosinophils % 4 Neutrophils # (Manual) 17.6 Metamyelocytes 5 Promyelocytes 1 Differential Comment FINAL DIFF MANUAL Platelet Estimate NORMAL Platelet Morphology Comment NORMAL Sodium Level 142 Potassium Level 3.6 Chloride Level 107 Carbon Dioxide Level 24.3 Anion Gap 11 Blood Urea Nitrogen 63 Creatinine 3.38 Estimat Glomerular Filtration 14 Rate Random Glucose 78 Calcium Level 8.5 Random Vancomycin Level 22.3 Result Diagram: 06/29/16 0335 06/29/16 0335 Imaging RADIOLOGY STUDIES/FILMS REVIEWED Renal Scan w/Medication NM 06/26/16 0000 Signed Impressions: Service Date/Time: Sunday, June 26, 2016 09:19 - CONCLUSION: Findings consistent with high-grade bilateral obstructive uropathy Franko Paez MD Renal Ultrasound 06/23/16 0000 Signed Impressions: Service Date/Time: Thursday, June 23, 2016 07:51 - CONCLUSION: 1. Moderate bilateral hydronephrosis of unknown etiology. Cárdenas catheter present. 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 Franko Paez MD Breast Ultrasound 06/22/16 0000 Signed Impressions: Service Date/Time: June 13:18 - CONCLUSION: 1. Phlegmonous mass in the right breast associated with edema and inflammation. No drainable fluid collections. Dillon Sharma MD Assessment and Plan Assessment and Plan IMPRESSION R breast/chest wall cellulitis, abscess UTI, patient with chronic hydronephrosis due to pelvic prolapse Persistent leukocytosis, due to above Renal failure, non-oliguric due to chronic hydronephrosis from the pelvic prolapse RECOMMENDATION Surgery planning on doing beside I and D this afternoon - will ask to send C/S Repeat UA and C/S Change Rocephin to cefepime for now Continue vancomycin - pharm doing dosing Follow CBC Follow C/S Monitor progress I will make further recommendations on Abx for D/C once repeat cultures done Thank you for this consultation I will follow along with you Discussed Condition With Explained plan to the patient Ronda Toledo MD Jun 29, 2016 13:19
[2016-06-29] MEDS: cefTRIAXone INJ 1,000 MG in SODIUM CHLORIDE 0.9% INJ 100 ML IV SCH (13:37)
[2016-06-29] MEDS: CEFEPIME INJ 2,000 MG in SODIUM CHLORIDE 0.9% INJ 100 ML IV SCH (14:10)
[2016-06-29 14:16] LABS: BACTERIA, URINE RARE /hpf; BLOOD, URINE NEG (NEG); COMMENT (UR) CATH-CULTURE IND; CULTURE IF INDICATED CATH CULTURE IND; GLUCOSE,URINE NEG (NEG); KETONE, URINE NEG (NEG); MUCUS URINE FEW /lpf (OCC); NITRITE,URINE NEG (NEG); PH, URINE 6.5 (5.0-8.5); TRANSITIONAL EPI CELLS, URINE <1 /hpf; URINE COLOR COLORLESS (YELLW/STRAW)
[2016-06-29] MEDS: ENOXAPARIN SODIUM 30 MG/0.3 ML SYRINGE SQ SCH (15:26)
[2016-06-29 16:00] VITALS: BP 138/74; PULSE 83; RESP 17; TEMP 99.2; O2SAT 94
--- NOTE | 2016-06-29 17:21 | HHI.NPPN ---
Subjective History of Present Illness The patient is a 66 yo [place] female who presented to the ED in [place] 06/22/16 after an axillary infection got worse. She recently started seeing a primary care physician for the first time in many years and was given Doxycyline within the past week for this infection. She also mentions that she was told that she had a decline in her renal functions at that visit, but she is not sure how dysfunctional. Her PMHx is limited as she admits that she was not taking care of herself within the past several years, but states hypertension that she was recently started on medication for (not sure of name). On admission, her SCr was reported at 4.00 that has worsened to 4.10 at time of consult. Renal US was done that showed a moderate bilateral hydronephrosis. The patient admits that she has been taking Aleve everyday at home for some years. No recent abx besides Doxycycline. She is not diabetic and denies any previous urological obstructions. Does mention that she has had a decrease in her urinary flow for the past several weeks. Had a hysterectomy in the past related to uterine fibroids. Denies any gynecological cancers. Interval History The patient is up in room walking around. Says she is feeling much better I&D planned on axillary abscess tomorrow. Had pessary in and fell out again this afternoon. One has been special ordered with PROCESS TANK TENDER (Claudette Traylor) Review of Systems General Constitutional: Fatigue (Claudette Traylor) Objective Data Data 06/28/16 06/29/16 19:00 07:00 Intake Total 740 ml 960 ml Output Total 400 ml 3800 ml Balance 340 ml -2840 ml Intake Oral 740 ml 960 ml IV Total 0 ml Output Urine Total 400 ml 3800 ml # Bowel Movements 1 3 Vital Signs Date Time Temp Pulse Resp B/P Pulse Ox O2 Delivery O2 Flow Rate FiO2 06/29/16 12:00 98.5 79 18 135/67 92 06/29/16 08:11 Nasal Cannula 2.00 Humidified 06/29/16 08:00 98.8 81 17 158/76 94 06/29/16 00:15 98.9 89 20 146/79 96 06/28/16 20:23 98.3 85 21 164/83 95 (Claudette Traylor) -: 06/29/16 0335 06/29/16 0335 Microbiology 06/29/16 Urine Culture, Received Pending Medication Review Current Medications Medications (Trade) Dose Ordered Sig/Elinor Route Start Time Stop Time Status Last Admin (NS Flush) 2 ml UNSCH PRN FLUSH 06/22/16 15:15 (NS Flush) 2 ml BID FLUSH 06/22/16 21:00 06/29/16 08:07 (Tylenol) 650 mg Q4H PRN PO 06/22/16 15:15 (Colace) 100 mg Q12H PO 06/22/16 16:00 06/28/16 09:07 (Milk Of Magnesia Liq) 30 ml Q12H PRN PO 06/22/16 15:15 (Restoril) 15 mg HS PRN PO 06/22/16 15:15 06/27/16 22:21 (Lovenox Inj) 30 mg Q24H SQ 06/22/16 16:00 06/28/16 16:35 Naloxone HCl 0.4 mg 0.4 mg UNSCH PRN IV 06/22/16 15:15 (Vancomycin Consult Pharmacy) 0 ml @ 0 mls/hr UNSCH XX 06/22/16 15:15 (Dolophine) 110 mg DAILY PO 06/23/16 09:00 06/29/16 08:02 Miscellaneous Information Patient in critical care unit? Ass... Q361D XX 06/22/16 22:00 06/22/16 22:00 (Vitamin D3) 2,000 units DAILY PO 06/23/16 18:00 06/29/16 08:02 (D50w (Vial) Inj) 25 ml UNSCH PRN IV PUSH 06/24/16 07:15 (Glucagon Inj) 1 mg UNSCH PRN OTHER 06/24/16 07:15 (Drisdol) 50,000 units Q7D PO 06/24/16 08:00 06/24/16 08:40 (Sodium Bicarbonate) 1,300 mg Q8HR PO 06/26/16 14:00 06/29/16 13:37 Amlodipine Besylate 5 mg 5 mg BID PO 06/27/16 21:00 06/29/16 08:02 Vancomycin HCl 1500 mg/Sodium Chloride 515 ml @ 257.5 mls/ hr ONCE@0600 ONCE IV 06/30/16 06:00 06/30/16 07:59 (Maxipime Inj/NS Inj) 100 ml @ 200 mls/hr Q24H IV 06/29/16 13:00 06/29/16 14:10 (Claudette Traylor) Physical Exam General Appearance: No Acute Distress, Comfortable, Pale (Claudette Traylor) Eyes Eye Exam: Sclera White (Claudette Traylor) Pulmonary Resp Exam: Clear Bilaterally, Breath Sounds Equal, No Distress (Claudette Traylor) Cardiology CV Exam: Regular, Normal Sinus Rhythm (Claudette Traylor) Gastrointestinal/Abdomen GI Exam: Soft, Non-Tender (Claudette Traylor) Genitourinary Exam: Clear Urine (Claudette Traylor) Integumentary Skin Exam: Clear, Warm, Dry, Intact (Claudette Traylor) Extremeties Extremities Exam: No Edema (Claudette Traylor) Neurologic Neuro Exam: Alert, Awake (Claudette Traylor) Psychiatric Psych Exam: Appropriate Responses (Claudette Traylor) Assessment/Plan Problem List: (1) Acute renal failure Plan: TAN likely related to bilateral hydronephrosis from PROCESS TANK TENDER prolapse. She did have presence of urine eosinophils which potentially raises concerns for an interstitial nephritis. As per history, she was taking an excessive amount of Aleve which can be associated with an AIN. SCr improving slowly with ease of obstruction. As discussed with the patient, it remains to be seen where her renal, functions will stabilize. As she is improving daily, OK to be discharged from renal standpoint with BMP 1 week after discharge and f/u in office within 2 weeks. Gave business card to the patient's daughter. Medications should be adjusted for the patient's estimated GFR if clinically indicated. Avoid agents with significant potential for nephrotoxicity possible including NSAIDs for analgesia, iodine contrast agents. Gadolinium is contraindicated if the GFR is below 30. (2) Hydronephrosis Plan: Presently uncertain as to the chronicity of same. May have sustained renal damage related to obstruction (Claudette Traylor) Plan Physical examination, evaluation and assessment reviewed and discussed with my PA. I was fully involved in the evaluation and plan of care this patient. Doctor Felipe. (Jacoby Wang MD) Problem Qualifiers (1) Acute renal failure: Qualified Code: N17.9 - Acute renal failure, unspecified acute renal failure type (2) Hydronephrosis: Qualified Code: N13.39 - Other hydronephrosis Claudette Traylor Jun 29, 2016 17:21 Jacoby Wang MD Jul 25, 2016 11:36
--- NOTE | 2016-06-29 18:25 | HHI.PR ---
Immediate Post Op Note Procedure Date: Jun 29, 2016 Pre Op Diagnosis: axillary abscess right Post Op Diagnosis: same Surgeon: Naren Cortez S Iron Worker(s): auto parts handler: I and D R axillary abscess Findings: light brown purulent fluid non odorous sent for gram stain, C and S. Complications: none Estimated blood loss: minimal Anesthesia: Local Drains: None Patient Condition: Good Naren Cortze MD Jun 29, 2016 18:25
[2016-06-29 20:00] VITALS: BP 142/75; PULSE 81; RESP 18; TEMP 99.2; O2SAT 95
[2016-06-29] MEDS: TEMAZEPAM 15 MG CAP PO PRN (20:56)
[2016-06-29] MEDS ORDERED: KETOROLAC TROMETHAMINE 30 MG/ML (IVP) VIAL IV PUSH ONE (21:00)
[2016-06-30] VITALS (7 sets, daily range): BP systolic 128–166; BP diastolic 69–78; PULSE 76–86; RESP 16–20; TEMP 98.2–99.5; O2SAT 92–96
[2016-06-30 03:52] LABS: KAPPA/LAMBDA FREE 1.65 (0.26-1.65)
[2016-06-30 05:20] LABS: BICARBONATE 24.6 MEQ/L (21.0-32.0); POTASSIUM 3.5 MEQ/L (3.5-5.1)
[2016-06-30] MEDS: SODIUM BICARBONATE 650 MG TAB PO SCH ×3 (05:43→20:51)
[2016-06-30] MEDS: DOCUSATE SODIUM 100 MG CAP PO SCH ×2 (05:43→11:54)
[2016-06-30] MEDS ORDERED: VANCOMYCIN 1,500 MG/NS 500 ML IV ONE ×2 (06:00)
[2016-06-30] MEDS: CHOLECALCIFEROL (VIT D3) 1000 UNIT TAB PO SCH (07:37)
[2016-06-30] MEDS: amLODIPine BESYLATE 5 MG TAB PO SCH ×2 (07:37→20:51)
[2016-06-30] MEDS: METHADONE HCL 10 MG TAB PO SCH (07:38)
[2016-06-30] MEDS: SODIUM CHLORIDE 0.9% FLUSH 5 ML FLUSH FLUSH SCH ×2 (07:39→20:52)
--- NOTE | 2016-06-30 09:48 | HHI.PR ---
Subjective Subjective Notes Resting in bed Just had pain meds No complaints Objective Vitals/I&O Vital Signs Date Time Temp Pulse Resp B/P Pulse Ox O2 Delivery O2 Flow Rate FiO2 06/30/16 08:00 98.4 76 17 134/77 93 06/30/16 07:38 Nasal Cannula 2.00 Humidified Labs Laboratory Tests Test 06/29/16 06/30/16 13:51 03:38 Urine Color COLORLESS Urine Turbidity CLEAR Urine pH 6.5 Urine Specific [place] 1.006 Urine Protein NEG Urine Glucose (UA) NEG Urine Ketones NEG Urine Occult Blood NEG Urine Nitrite NEG Urine Bilirubin NEG Urine Urobilinogen LESS THAN 2.0 Urine Leukocyte Esterase MOD Urine RBC 2 Urine WBC 6 Urine Transitional Epithelial <1 Cells Urine Bacteria RARE Urine Mucus FEW Microscopic Urinalysis Comment CATH-CULTURE IND Sodium Level 143 Potassium Level 3.5 Chloride Level 107 Carbon Dioxide Level 24.6 Anion Gap 11 Blood Urea Nitrogen 58 Creatinine 2.85 Estimat Glomerular Filtration 16 Rate Random Glucose 95 Calcium Level 8.2 Phosphorus Level 5.7 Albumin 2.0 Date/Time Procedure Status Source Growth 06/29/16 18:19 Gram Stain Received Wound Breast Pending 06/29/16 18:19 Wound Culture Received Wound Breast Pending 06/29/16 13:51 Urine Culture Received Urine Catheterized Urine Pending Cardiovascular: Regular Lungs: Clear Abdomen: Non-distended, Non-tender Narrative Exam RIGHT axillary/chest wall abscess s/p I&D----packing removed---moderate purulent drainage A/P Assessment and Plan 66 year old female with RIGHT axillary/chest wall abscess -POD1 bedside I&D -Will change packing today -Likely needs packing changed TID -Will tentatively plan for possible OR tomorrow for repeat I&D if drainage does not decrease -NPO after MN Attending Statement pt seen at bedside continued abscess drainage will plan for further intervention Attestation The exam, history, and the medical decision-making described in the above note were completed with the assistance of the mid-level provider. I reviewed and agree with the findings presented. I attest that I had a [id number] encounter with the patient on the same day, and personally performed and documented my assessment and findings in the medical record. Jessica Manrique Jun 30, 2016 09:48 Darren Dale MD Jul 02, 2016 20:22
--- NOTE | 2016-06-30 09:50 | HHI.FF ---
Face to Face Verification Diagnosis: (1) Cellulitis of female breast Home Health Nursing Order: Wound care and dressing changes Instructions: Packing change ---iodoform packing removed and repacked; okay to shower between dressing changes; change BID at home; once a day by [facility] RN and for family and patient teaching I have seen patient Nayely Tovar on 06/30/16. My clinical findings support the need for the requested home health care services because: Limited ability to care for self High risk of falls I certify that my clinical findings support that this patient is homebound because: Unsteady gait/balance Jessica Manrique Jun 30, 2016 09:50
--- NOTE | 2016-06-30 11:45 | HHI.PR ---
Subjective Remarks Feels much better today. Cellulitis right breast improving, lots of discharge coming out after shower, surgical team at bedside packing. Patient has I&D last night per surgery. No fever or chills. Pain is controlled by meds. Had 2 pessaries #7, fell out yesterday. Patient need custom made pessary by ob/ commercial door installer as OP. Kidney function is improving. Objective Vitals Vital Signs Date Time Temp Pulse Resp B/P Pulse Ox O2 Delivery O2 Flow Rate FiO2 06/30/16 08:00 98.4 76 17 134/77 93 06/30/16 07:38 Nasal Cannula 2.00 Humidified 06/30/16 00:00 Nasal Cannula 2.00 Humidified 06/30/16 00:00 98.4 85 20 146/75 94 06/29/16 20:00 99.2 81 18 142/75 95 06/29/16 20:00 Nasal Cannula 2.00 Humidified 06/29/16 16:00 99.2 83 17 138/74 94 06/29/16 12:00 98.5 79 18 135/67 92 I/O 06/29/16 06/29/16 06/29/16 06/30/16 06/30/16 06/30/16 07:00 15:00 23:00 07:00 15:00 23:00 Intake Total 480 ml 960 ml 240 ml 980 ml Output Total 1800 ml 1650 ml 1700 ml 1800 ml Balance -1320 ml -690 ml -1460 ml -820 ml Intake Oral 480 ml 960 ml 240 ml 480 ml IV Total 0 ml 500 ml Output Urine Total 1800 ml 1650 ml 1700 ml 1800 ml # Bowel Movements 2 0 1 1 Result Diagram: 06/29/16 0335 06/30/16 0338 Imaging Last Impressions Renal Scan w/Medication NM 06/26/16 0000 Signed Impressions: Service Date/Time: Sunday, June 26, 2016 09:19 - CONCLUSION: Findings consistent with high-grade bilateral obstructive uropathy Franko Paez MD Renal Ultrasound 06/23/16 0000 Signed Impressions: Service Date/Time: Thursday, June 23, 2016 07:51 - CONCLUSION: 1. Moderate bilateral hydronephrosis of unknown etiology. Rivas catheter present. 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 Franko Paez MD Breast Ultrasound 06/22/16 0000 Signed Impressions: Service Date/Time: June 13:18 - CONCLUSION: 1. Phlegmonous mass in the right breast associated with edema and inflammation. No drainable fluid collections. Dillon Sharma MD Objective Remarks GENERAL: Well-developed, well-nourished, in no acute distress. Alert and orientated. HEENT: Head is normocephalic without any lesions or masses noted. Facial features are symmetric. Eyes: Extraocular muscles are intact. Conjunctivae were clear. NECK: Supple without any masses. Trachea midline no deviation. No JVD, CARDIAC: Regular rhythm, regular rate. S1/S2 are heard. No murmurs gallops or rubs. LUNGS: Clear to auscultation bilaterally. No wheeze, rhonchi or rales. No use of accessory muscles on inspiration or expiration. ABDOMEN: Soft, nontender. Nondistended. Bowel sounds heard in all 4 quadrants. No organomegaly or masses. Negative rebound, negative guarding EXTREMITIES: No edema, pulses are equal bilaterally. No cyanosis or clubbing NEUROLOGY: Mood and affect appear appropriate. Cranial nerves II through XII grossly intact. Moving all extremities, speech is clear RIGHT BREAST: Patient still have significant erythema, mainly tissue. However erythema is receding from the previously marked line. Fluctuating mass s/p I&D , packed : large mass outside of vaginal introitus. 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 Cultures continue to follow cultures. Continue vancomycin cefepime IV ID consult appreciate recommendations. R breast/chest wall cellulitis, abscess -UTI, patient with chronic hydronephrosis due to pelvic prolapse.ABX as above . Ucx with E Coli and Klebsiella Ozaenae. -History of opioid addiction on methadone maintenance therapy, denies any history of IV drug abuse. resumed her home methadone dose which the ED nurse confirmed with the methadone clinic. -Large developing abscess with cellulitis of the left breast and axilla. Continue IV antibiotics of vancomycin and cefepime. Gen. Surgery consulted. S/P I&D by gen surgery 06/29/16 at bedside, with copious pus, cultures sent. Packing. -Leukocytosis. Likely secondary to sepsis, infection. Continue monitor CBC -Acute renal failure on top of chronic kidney disease. Unknown baseline creatinine. Continue Rivas, continue IV fluids normal saline. Renal ultrasound indicates bilateral hydronephrosis. Consulted urology, Consulted nephrology. Patient has mechanical obstruction 2/2 prolapse. Industrial Garage Servicer following, had pessary placed 06/27, however needs further adjustments. To follow up as OP with licensed mass real estate appraiser. -Hypertension - resume Norvasc. -Hypokalemia. Continue monitor and replete as needed -Tobacco use. Cessation recommended. -Vit D deficiency Vit D of 6, Start Ergocalciferol -Hypoglycemia , on Hypoglycemic protocol -DVT prophylaxis with Lovenox. Per urology Dr. 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 Dr. Bowling does not treat that. Discussed with Dr Wang nephrology. Says she needs urology as inpatient as obstruction as upstream and rivas is not helping. Reconsult urology for further evaluation. Discussed with Dr Rich uro/commercial door installer specialist and he evaluated the patient . Had [address] Plan to f/u as OP for custom pessary. Plan for colpocleisis as OP per Dr Rich if need. Also patient to follow up with Dr Jonathon Madrigal urology as OP. DC when improved and cleared by consultants. S/P I&D 06/29/16 of right breast abscess by surgical team. Also ID consulted for abx at MD Continue to monitor kidney function, improving. Problem Qualifiers (1) Hydronephrosis: Qualified Code: N13.39 - Other hydronephrosis (2) Bladder infection, acute: Qualified Code: N30.00 - Acute cystitis without hematuria (3) Acute renal failure: Qualified Code: N17.9 - Acute renal failure, unspecified acute renal failure type Jen Silva MD Jun 30, 2016 11:45
[2016-06-30] MEDS: CEFEPIME INJ 2,000 MG in SODIUM CHLORIDE 0.9% INJ 100 ML IV SCH (11:53)
[2016-06-30] MEDS: ENOXAPARIN SODIUM 30 MG/0.3 ML SYRINGE SQ SCH (11:58)
--- NOTE | 2016-06-30 12:07 | HHI.IDPN ---
Subjective Subjective Remarks Notes reviewed Temps ok UO has been up to 5L Had I and D R breast abscess, C/O pain WBC 21K, slightly lower C/S pending Repeat UA improving Creatinine improving Antibiotics Cefepime Vancomycin Lines PIV Past Medical History Hypertension Chronic kidney disease History of opioid addiction on methadone maintenance therapy , all vaginal deliveries Allergies: Coded Allergies: No Known Allergies (Verified , 06/22/16) Objective . Vital Signs Date Time Temp Pulse Resp B/P Pulse Ox O2 Delivery O2 Flow Rate FiO2 06/30/16 08:00 98.4 76 17 134/77 93 06/30/16 07:38 Nasal Cannula 2.00 Humidified 06/30/16 00:00 Nasal Cannula 2.00 Humidified 06/30/16 00:00 98.4 85 20 146/75 94 06/29/16 20:00 99.2 81 18 142/75 95 06/29/16 20:00 Nasal Cannula 2.00 Humidified 06/29/16 16:00 99.2 83 17 138/74 94 06/29/16 12:00 98.5 79 18 135/67 92 06/29/16 06/29/16 06/30/16 15:00 23:00 07:00 Intake Total 960 ml 240 ml 980 ml Output Total 1650 ml 1700 ml 1800 ml Balance -690 ml -1460 ml -820 ml Intake Oral 960 ml 240 ml 480 ml IV Total 500 ml Output Urine Total 1650 ml 1700 ml 1800 ml # Bowel Movements 0 1 1 . Laboratory Tests Test 06/29/16 03:35 White Blood Count 21.7 TH/MM3 Red Blood Count 3.17 MIL/MM3 Hemoglobin 9.0 GM/DL Hematocrit 28.1 % Mean Corpuscular Volume 88.9 FL Mean Corpuscular Hemoglobin 28.5 PG Mean Corpuscular Hemoglobin 32.1 % Concent Red Cell Distribution Width 15.4 % Platelet Count 384 TH/MM3 Mean Platelet Volume 7.7 FL Neutrophils (%) (Auto) 82.9 % Lymphocytes (%) (Auto) 10.0 % Monocytes (%) (Auto) 4.5 % Eosinophils (%) (Auto) 2.2 % Basophils (%) (Auto) 0.4 % Neutrophils # (Auto) 18.0 TH/MM3 Lymphocytes # (Auto) 2.2 TH/MM3 Monocytes # (Auto) 1.0 TH/MM3 Eosinophils # (Auto) 0.5 TH/MM3 Basophils # (Auto) 0.1 TH/MM3 CBC Comment AUTO DIFF Differential Total Cells 100 Counted Neutrophils % (Manual) 69 % Band Neutrophils % 6 % Lymphocytes % 10 % Monocytes % 5 % Eosinophils % 4 % Neutrophils # (Manual) 17.6 TH/MM3 Metamyelocytes 5 % Promyelocytes 1 % Differential Comment FINAL DIFF MANUAL Platelet Estimate NORMAL Platelet Morphology Comment NORMAL Laboratory Tests Test 06/29/16 06/30/16 03:35 03:38 Sodium Level 142 MEQ/L 143 MEQ/L Potassium Level 3.6 MEQ/L 3.5 MEQ/L Chloride Level 107 MEQ/L 107 MEQ/L Carbon Dioxide Level 24.3 MEQ/L 24.6 MEQ/L Anion Gap 11 MEQ/L 11 MEQ/L Blood Urea Nitrogen 63 MG/DL 58 MG/DL Creatinine 3.38 MG/DL 2.85 MG/DL Estimat Glomerular Filtration 14 ML/MIN 16 ML/MIN Rate Random Glucose 78 MG/DL 95 MG/DL Calcium Level 8.5 MG/DL 8.2 MG/DL Phosphorus Level 5.7 MG/DL Albumin 2.0 GM/DL Microbiology Date/Time Procedure Status Source Growth 06/29/16 13:51 Urine Culture Received Urine Catheterized Urine Pending 06/29/16 18:19 Gram Stain - Final Resulted Wound Breast 06/29/16 18:19 Wound Culture Resulted Wound Breast Pending Imaging Renal Scan w/Medication NM 06/26/16 0000 Signed Impressions: Service Date/Time: Sunday, June 26, 2016 09:19 - CONCLUSION: Findings consistent with high-grade bilateral obstructive uropathy Franko Paez MD Renal Ultrasound 06/23/16 0000 Signed Impressions: Service Date/Time: Thursday, June 23, 2016 07:51 - CONCLUSION: 1. Moderate bilateral hydronephrosis of unknown etiology. Cárdenas catheter present. 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 Franko Paez MD Breast Ultrasound 06/22/16 0000 Signed Impressions: Service Date/Time: June 13:18 - CONCLUSION: 1. Phlegmonous mass in the right breast associated with edema and inflammation. No drainable fluid collections. Dillon Sharma MD Physical Exam GENERAL: awake and alert, in no apparent distress. SKIN: Cool and dry. No generalized rash, no ecchymosis. HEENT: [place] conjunctivae. No scleral icterus. Moist oral mucosa. NECK: Trachea midline. No JVD or lymphadenopathy. Supple, nontender, no meningeal signs. CARDIOVASCULAR: Regular rate and rhythm without murmurs, gallops, or rubs. RESPIRATORY: Clear to auscultation. R breast with packing, improving redness and induration GASTROINTESTINAL: Abdomen soft, non-tender, nondistended. Bowel sounds are present and normoactive. MUSCULOSKELETAL: Extremities without clubbing, cyanosis, or edema. No calf tenderness. Negative Homans sign bilaterally. NEUROLOGICAL: Grossly non-focal PSYCH: Calm and cooperative LINE: PIV with no evidence of infection : Cárdenas in place with clear urine Assessment & Plan Remarks IMPRESSION R breast/chest wall cellulitis, abscess UTI, patient with chronic hydronephrosis due to pelvic prolapse Persistent leukocytosis, due to above Renal failure, non-oliguric due to chronic hydronephrosis from the pelvic prolapse RECOMMENDATION Continue cefepime Continue vancomycin - pharm doing dosing Follow C/S Monitor progress Will adjust Abx once C/S finalized Will need to monitor for post-obstructive diuresis - patient has been on negative side D/W RN Explained plan to patient Ronda Toledo MD Jun 30, 2016 12:07 Ronda Toledo MD Jun 30, 2016 12:07
--- NOTE | 2016-06-30 14:00 | MP ---
cc: VICENTA HARPER M.D. DATE OF SURGERY: 06/29/2016 PREOPERATIVE DIAGNOSIS: Right axillary abscess. POSTOPERATIVE DIAGNOSIS: Right axillary abscess. OPERATIVE PROCEDURE PERFORMED: Incision and drainage, right axillary abscess. SURGEON: Dr. Vicenta Harper ANESTHESIA: 1% lidocaine with epinephrine. INDICATIONS FOR THE PROCEDURE: This is a pleasant 66-year-old woman who has been treated for right axillary and chest wall and lateral breast cellulitis with IV antibiotics. She has now developed an area of fluctuance that would benefit from incision and drainage. She was reluctant to go to surgery and decided she could have this done under straight local anesthesia at the bedside. INTRAOPERATIVE FINDINGS: Large amount of light-brown drainage. Culture swab used to send a gram stain culture and sensitivity. ESTIMATED BLOOD LOSS: Minimal blood loss. DESCRIPTION OF THE PROCEDURE IN DETAIL The patient was identified as Nayely Tovar in her room 1705 at [facility]. She had previously signed a consent procedure. A time-out procedure form was filled out and all important parameters were satisfied. The right axilla was prepped with Betadine swabs. 1% lidocaine with epinephrine was injected over the fluctuant areas. Two incisions were made and a large amount of light-brown purulent drainage was expressed out of the superior posterior incision. A smaller amount of drainage was obtained through the inferior incision. The wound was irrigated with local anesthetic. Once the cavity was drained to patient tolerance, a half-inch Iodoform gauze wick was placed in the two incisions and a dry dressing was placed. The patient tolerated the procedure without untoward complication. All instruments were secured and accounted for. A dry dressing was placed with 4x4's and paper tape. Findings were communicated to the patient's bedside nurse. MD NORMA Galdamez/NEETA /6:22 PM /1:49 PM
[2016-06-30] MEDS ORDERED: LIDOCAINE HCL 1% 50 ML VIAL ONE (15:52)
--- NOTE | 2016-06-30 16:03 | HHI.NPPN ---
Subjective History of Present Illness The patient is a 66 yo [place] female who presented to the ED in [place] 06/22/16 after an axillary infection got worse. She recently started seeing a primary care physician for the first time in many years and was given Doxycyline within the past week for this infection. She also mentions that she was told that she had a decline in her renal functions at that visit, but she is not sure how dysfunctional. Her PMHx is limited as she admits that she was not taking care of herself within the past several years, but states hypertension that she was recently started on medication for (not sure of name). On admission, her SCr was reported at 4.00 that has worsened to 4.10 at time of consult. Renal US was done that showed a moderate bilateral hydronephrosis. The patient admits that she has been taking Aleve everyday at home for some years. No recent abx besides Doxycycline. She is not diabetic and denies any previous urological obstructions. Does mention that she has had a decrease in her urinary flow for the past several weeks. Had a hysterectomy in the past related to uterine fibroids. Denies any gynecological cancers. Interval History Noted second pessary fell out. A custom 1 is being created. No verbal complaints today. Review of Systems General Constitutional: Fatigue Objective Data Data 06/29/16 06/30/16 19:00 07:00 Intake Total 960 ml 1220 ml Output Total 1650 ml 3500 ml Balance -690 ml -2280 ml Intake Oral 960 ml 720 ml IV Total 500 ml Output Urine Total 1650 ml 3500 ml # Bowel Movements 0 2 Vital Signs Date Time Temp Pulse Resp B/P Pulse Ox O2 Delivery O2 Flow Rate FiO2 06/30/16 12:00 98.8 77 16 129/78 92 06/30/16 08:00 98.4 76 17 134/77 93 06/30/16 07:38 Nasal Cannula 2.00 Humidified 06/30/16 00:00 Nasal Cannula 2.00 Humidified 06/30/16 00:00 98.4 85 20 146/75 94 06/29/16 20:00 99.2 81 18 142/75 95 06/29/16 20:00 Nasal Cannula 2.00 Humidified -: 06/29/16 0335 06/30/16 0338 Microbiology 06/29/16 Gram Stain - Final, Resulted 06/29/16 Wound Culture - Preliminary, Resulted Physical Exam General Appearance: No Acute Distress, Comfortable, Pale Eyes Eye Exam: Sclera White Pulmonary Resp Exam: Clear Bilaterally, Breath Sounds Equal, No Distress Cardiology CV Exam: Regular, Normal Sinus Rhythm Gastrointestinal/Abdomen GI Exam: Soft, Non-Tender Genitourinary Exam: Clear Urine Integumentary Skin Exam: Clear, Warm, Dry, Intact Extremeties Extremities Exam: No Edema Neurologic Neuro Exam: Alert, Awake Psychiatric Psych Exam: Appropriate Responses Assessment/Plan Problem List: (1) Acute renal failure Plan: TAN likely related to 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 Maintaining very good urine output and the creatinine level is now improving progressively. Patient advised to avoid NSAIDs for analgesia in the future. Patient will be seen on a when necessary basis only. Suspect creatinine level will continue to improve. SCr improving slowly with ease of obstruction. As discussed with the patient, it remains to be seen where her renal, functions will stabilize. As she is improving daily, OK to be discharged from renal standpoint with BMP 1 week after discharge and f/u in office within 2 weeks. Gave business card to the patient's daughter. Medications should be adjusted for the patient's estimated GFR if clinically indicated. Avoid agents with significant potential for nephrotoxicity possible including NSAIDs for analgesia, iodine contrast agents. Gadolinium is contraindicated if the GFR is below 30. (2) Hydronephrosis Plan: Presently uncertain as to the chronicity of same. May have sustained renal damage related to obstruction Problem Qualifiers (1) Acute renal failure: Qualified Code: N17.9 - Acute renal failure, unspecified acute renal failure type (2) Hydronephrosis: Qualified Code: N13.39 - Other hydronephrosis Jacoby Wang MD Jun 30, 2016 16:03
[2016-06-30] MEDS: TEMAZEPAM 15 MG CAP PO PRN (20:51)
[2016-07-01] MEDS: SODIUM BICARBONATE 650 MG TAB PO SCH ×3 (04:56→19:57)
[2016-07-01] MEDS: DOCUSATE SODIUM 100 MG CAP PO SCH ×2 (04:56→16:14)
[2016-07-01 06:30] LABS: BICARBONATE 24.5 MEQ/L (21.0-32.0); MAGNESIUM 1.5 MG/DL (1.5-2.5); POTASSIUM 3.5 MEQ/L (3.5-5.1)
[2016-07-01 06:37] LABS: AUTOMATED NEUTROPHIL # 9.9 TH/MM3 (1.8-7.7); BASOPHIL # 0.1 TH/MM3 (0-0.2); BASOPHIL % 0.8 % (0.0-2.0); EOSINOPHIL # 0.3 TH/MM3 (0-0.4); EOSINOPHIL % 2.7 % (0.0-4.0); HEMATOCRIT 28.1 % (35.0-46.0); LYMPH % 10.5 % (9.0-44.0); LYMPHOCYTE # 1.3 TH/MM3 (1.0-4.8); MEAN CELL VOLUME 90.3 FL (80.0-100.0); MEAN CORPUSCULAR HEMOGLOBIN 29.8 PG (27.0-34.0); MONO % 6.6 % (0.0-8.0); NEUT % 79.4 % (16.0-70.0); PLATELET COUNT 420 TH/MM3 (150-450); RED BLOOD COUNT 3.12 MIL/MM3 (4.00-5.30); RED CELL DISTRIBUTION WIDTH 15.2 % (11.6-17.2); WHITE BLOOD COUNT 12.5 TH/MM3 (4.0-11.0)
[2016-07-01 06:49] LABS: HEMO FLAGS AUTO DIFF
[2016-07-01 08:00] VITALS: BP 152/69; PULSE 72; RESP 18; TEMP 98.7; O2SAT 94
[2016-07-01] MEDS: CHOLECALCIFEROL (VIT D3) 1000 UNIT TAB PO SCH (08:02)
[2016-07-01] MEDS: ERGOCALCIFEROL (VIT D2) 50,000 UNIT CAP PO SCH (08:02)
[2016-07-01] MEDS: amLODIPine BESYLATE 5 MG TAB PO SCH ×2 (08:03→19:57)
[2016-07-01] MEDS: SODIUM CHLORIDE 0.9% FLUSH 5 ML FLUSH FLUSH SCH ×2 (08:03→19:56)
[2016-07-01] MEDS: METHADONE HCL 10 MG TAB PO SCH (08:03)
[2016-07-01 08:22] VITALS: O2SAT 93
[2016-07-01 09:35] LABS: BANDS 10 % (0-6); EOSINOPHILS 2 % (0-4); METAMYELOCYTES 2 % (0-1); NEUTROPHIL # MANUAL DIFF 10.9 TH/MM3 (1.8-7.7); PLATELET ESTIMATE SMEAR NORMAL (NORMAL); PLATELET MORPHOLOGY NORMAL (NORMAL); POLYS (SEG NEUTROPHILS) 75 % (16-70); SCAN/DIFF FINAL DIFF MANUAL; WBC DIFF SAMPLE 100
[2016-07-01 12:00] VITALS: BP 136/75; PULSE 83; RESP 20; TEMP 98.7; O2SAT 93
[2016-07-01] MEDS: CEFEPIME INJ 2,000 MG in SODIUM CHLORIDE 0.9% INJ 100 ML IV SCH (12:18)
--- NOTE | 2016-07-01 14:08 | HHI.PR ---
Subjective Remarks In the chair. Says she is much better. Rash has improved significantly =, has a lot of discharge yesterday. Pain is controlled. no n/v/d/c. Had a BM last night. No n/v/d/c. Objective Vitals Vital Signs Date Time Temp Pulse Resp B/P Pulse Ox O2 Delivery O2 Flow Rate FiO2 07/01/16 12:00 98.7 83 20 136/75 93 07/01/16 09:03 19 07/01/16 08:22 93 21 07/01/16 08:01 Room Air 07/01/16 08:00 98.7 72 18 152/69 94 06/30/16 23:57 99.5 86 20 135/69 95 06/30/16 21:13 94 Nasal Cannula 3.00 06/30/16 20:00 99.4 81 20 166/77 95 06/30/16 16:00 98.2 81 17 128/77 96 I/O 06/30/16 06/30/16 06/30/16 07/01/16 07/01/16 07/01/16 07:00 15:00 23:00 07:00 15:00 23:00 Intake Total 980 ml 970 ml 240 ml 0 ml Output Total 1800 ml 1300 ml 700 ml Balance -820 ml -330 ml -460 ml 0 ml Intake Oral 480 ml 970 ml 240 ml IV Total 500 ml 0 ml 0 ml Output Urine Total 1800 ml 1300 ml 700 ml # Bowel Movements 1 1 0 Result Diagram: 07/01/16 0515 07/01/16 0515 Imaging Last Impressions Renal Scan w/Medication NM 06/26/16 0000 Signed Impressions: Service Date/Time: Sunday, June 26, 2016 09:19 - CONCLUSION: Findings consistent with high-grade bilateral obstructive uropathy Franko Paez MD Renal Ultrasound 06/23/16 0000 Signed Impressions: Service Date/Time: Thursday, June 23, 2016 07:51 - CONCLUSION: 1. Moderate bilateral hydronephrosis of unknown etiology. Rivas catheter present. 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 Franko Paez MD Breast Ultrasound 06/22/16 0000 Signed Impressions: Service Date/Time: June 13:18 - CONCLUSION: 1. Phlegmonous mass in the right breast associated with edema and inflammation. No drainable fluid collections. Dillon Sharma MD Objective Remarks GENERAL: Well-developed, well-nourished, in no acute distress. Alert and orientated. HEENT: Head is normocephalic without any lesions or masses noted. Facial features are symmetric. Eyes: Extraocular muscles are intact. Conjunctivae were clear. NECK: Supple without any masses. Trachea midline no deviation. No JVD, CARDIAC: Regular rhythm, regular rate. S1/S2 are heard. No murmurs gallops or rubs. LUNGS: Clear to auscultation bilaterally. No wheeze, rhonchi or rales. No use of accessory muscles on inspiration or expiration. ABDOMEN: Soft, nontender. Nondistended. Bowel sounds heard in all 4 quadrants. No organomegaly or masses. Negative rebound, negative guarding EXTREMITIES: No edema, pulses are equal bilaterally. No cyanosis or clubbing NEUROLOGY: Mood and affect appear appropriate. Cranial nerves II through XII grossly intact. Moving all extremities, speech is clear RIGHT BREAST: Patient still have significant erythema, mainly tissue. However erythema is receding from the previously marked line. Fluctuating mass s/p I&D /, packed : large mass outside of vaginal introitus. 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 Cultures continue to follow cultures. Continue vancomycin cefepime IV ID consult, appreciate recommendations. R breast/chest wall cellulitis, abscess -Large developing abscess with cellulitis of the left breast and axilla. Continue IV antibiotics of vancomycin and cefepime. Gen. Surgery consulted. S/P I&D by gen surgery 06/29/16 at bedside, with copious pus, cultures sent. Leukocytosis improving Wound cx with staph aureus -UTI, patient with chronic hydronephrosis due to pelvic prolapse.ABX as above . Ucx with E Coli and Klebsiella Ozaenae. -History of opioid addiction on methadone maintenance therapy, denies any history of IV drug abuse. Resumed her home methadone dose which the ED nurse confirmed with the methadone clinic. -Leukocytosis. Likely secondary to sepsis, infection. Continue monitor CBC -Acute renal failure on top of chronic kidney disease. Unknown baseline creatinine. Continue Rivas, continue IV fluids normal saline. Renal ultrasound indicates bilateral hydronephrosis. Consulted urology, Consulted nephrology. Patient has mechanical obstruction 2/2 prolapse. Alterations Workroom Clerk following, had pessary placed 06/27, however needs further adjustments. To follow up as OP with machine bunch maker. -Hypertension - resume Norvasc. -Hypokalemia. Continue monitor and replete as needed -Tobacco use. Cessation recommended. -Vit D deficiency Vit D of 6, Start Ergocalciferol -Hypoglycemia , on Hypoglycemic protocol -DVT prophylaxis with Lovenox. Per urology Dr. 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 Dr. Bowling does not treat that. Discussed with Dr Wang nephrology. Says she needs urology as inpatient as obstruction as upstream and rivas is not helping. Reconsult urology for further evaluation. Discussed with Dr Rich uro/adult family home program manager specialist and he evaluated the patient . Had [address]. Plan to f/u as OP for custom pessary. Plan for colpocleisis as OP per Dr Rich if need. Also patient to follow up with Dr Jonathon Madrigal urology as OP. MI when improved and cleared by consultants. S/P I&D 06/29/16 of right breast abscess by surgical team. Also ID consulted for abx at [place] Continue to monitor kidney function, improving. Problem Qualifiers (1) Hydronephrosis: Qualified Code: N13.39 - Other hydronephrosis (2) Bladder infection, acute: Qualified Code: N30.00 - Acute cystitis without hematuria (3) Acute renal failure: Qualified Code: N17.9 - Acute renal failure, unspecified acute renal failure type Jen Silva MD Jul 01, 2016 14:08
[2016-07-01 16:00] VITALS: BP 138/75; PULSE 81; RESP 20; TEMP 99.6; O2SAT 94
--- NOTE | 2016-07-01 16:08 | PD.PROCEDR ---
Procedure Note Procedure I and D at bedside or right breast abscess local: 1% lidocaine-8cc wound class dirty findings- puss surgeon Dr. Dale pt tolerated procedure Darren Dale MD Jul 01, 2016 16:08
--- NOTE | 2016-07-01 16:10 | HHI.PR ---
Subjective Subjective Notes no acute issues, tolerating diet, still with drainage from right breast Objective Vitals/I&O Vital Signs Date Time Temp Pulse Resp B/P Pulse Ox O2 Delivery O2 Flow Rate FiO2 07/01/16 12:00 98.7 83 20 136/75 93 07/01/16 08:22 21 07/01/16 08:01 Room Air 06/30/16 21:13 3.00 Labs Laboratory Tests Test 07/01/16 05:15 White Blood Count 12.5 Red Blood Count 3.12 Hemoglobin 9.3 Hematocrit 28.1 Mean Corpuscular Volume 90.3 Mean Corpuscular Hemoglobin 29.8 Mean Corpuscular Hemoglobin 33.0 Concent Red Cell Distribution Width 15.2 Platelet Count 420 Mean Platelet Volume 8.0 Neutrophils (%) (Auto) 79.4 Lymphocytes (%) (Auto) 10.5 Monocytes (%) (Auto) 6.6 Eosinophils (%) (Auto) 2.7 Basophils (%) (Auto) 0.8 Neutrophils # (Auto) 9.9 Lymphocytes # (Auto) 1.3 Monocytes # (Auto) 0.8 Eosinophils # (Auto) 0.3 Basophils # (Auto) 0.1 CBC Comment AUTO DIFF Differential Total Cells 100 Counted Neutrophils % (Manual) 75 Band Neutrophils % 10 Lymphocytes % 6 Monocytes % 5 Eosinophils % 2 Neutrophils # (Manual) 10.9 Metamyelocytes 2 Differential Comment FINAL DIFF MANUAL Platelet Estimate NORMAL Platelet Morphology Comment NORMAL Red Cell Morphology Comment NORMAL Sodium Level 143 Potassium Level 3.5 Chloride Level 108 Carbon Dioxide Level 24.5 Anion Gap 11 Blood Urea Nitrogen 54 Creatinine 2.63 Estimat Glomerular Filtration 18 Rate Random Glucose 79 Calcium Level 8.6 Magnesium Level 1.5 Random Vancomycin Level 23.5 Date/Time Procedure Status Source Growth 06/29/16 18:19 Gram Stain - Final Resulted Wound Breast 06/29/16 18:19 Wound Culture - Preliminary Resulted Staphylococcus Aureus 06/29/16 13:51 Urine Culture - Final Complete Urine Catheterized Urine NO GROWTH IN 48 HOURS. Cardiovascular: Regular Lungs: Clear Wound Wound : Drainage: Purulent (right breast with continued erythema and drainage) A/P Assessment and Plan 66 year old female with RIGHT axillary/chest wall abscess -POD2 bedside I&D- still with puss -Will re I and D at bedside - needs packing changed atleast bID Darren Dale MD Jul 01, 2016 16:09
[2016-07-01] MEDS: TEMAZEPAM 15 MG CAP PO PRN (19:57)
[2016-07-01 20:00] VITALS: BP 144/68; PULSE 56; RESP 18; TEMP 98.6; O2SAT 95
[2016-07-02] VITALS: BP 147/70; PULSE 86; RESP 18; TEMP 98.6; O2SAT 98
[2016-07-02] MEDS: SODIUM BICARBONATE 650 MG TAB PO SCH ×3 (04:59→19:30)
[2016-07-02] MEDS: ACETAMINOPHEN 325 MG TAB PO PRN (04:59)
[2016-07-02] MEDS: DOCUSATE SODIUM 100 MG CAP PO SCH ×2 (04:59→16:23)
[2016-07-02 07:09] LABS: AUTOMATED NEUTROPHIL # 10.5 TH/MM3 (1.8-7.7); BASOPHIL # 0.1 TH/MM3 (0-0.2); BASOPHIL % 0.6 % (0.0-2.0); EOSINOPHIL # 0.2 TH/MM3 (0-0.4); EOSINOPHIL % 1.8 % (0.0-4.0); HEMATOCRIT 30.1 % (35.0-46.0); LYMPH % 11.2 % (9.0-44.0); LYMPHOCYTE # 1.4 TH/MM3 (1.0-4.8); MEAN CELL VOLUME 89.3 FL (80.0-100.0); MEAN CORPUSCULAR HEMOGLOBIN 28.9 PG (27.0-34.0); MEAN CORPUSCULAR HGB CONC 32.3 % (32.0-36.0); MONO % 5.7 % (0.0-8.0); NEUT % 80.7 % (16.0-70.0); PLATELET COUNT 506 TH/MM3 (150-450); RED BLOOD COUNT 3.37 MIL/MM3 (4.00-5.30); RED CELL DISTRIBUTION WIDTH 14.9 % (11.6-17.2)
[2016-07-02 07:33] LABS: BICARBONATE 26.4 MEQ/L (21.0-32.0); POTASSIUM 3.8 MEQ/L (3.5-5.1)
[2016-07-02 08:00] VITALS: BP 148/75; PULSE 78; RESP 17; TEMP 98.1; O2SAT 91
[2016-07-02 08:00] LABS: HEMO FLAGS AUTO DIFF
[2016-07-02] MEDS: SODIUM CHLORIDE 0.9% FLUSH 5 ML FLUSH FLUSH SCH ×2 (08:23→19:30)
[2016-07-02] MEDS: METHADONE HCL 10 MG TAB PO SCH (08:23)
[2016-07-02] MEDS: amLODIPine BESYLATE 5 MG TAB PO SCH ×2 (08:23→19:30)
[2016-07-02] MEDS: CHOLECALCIFEROL (VIT D3) 1000 UNIT TAB PO SCH (08:23)
[2016-07-02] MEDS ORDERED: EPINEPHrine HCL (1:10,000) 1 MG/10 ML SYRINGE IM ONE (10:00)
--- NOTE | 2016-07-02 10:09 | HHI.PR ---
Subjective Remarks With copious amount of pus coming out the right breast. Says she has less pain . No fever or chills. Feels constipated, however had a normal BM yesterday. No n /v/d. Objective Vitals Vital Signs Date Time Temp Pulse Resp B/P Pulse Ox O2 Delivery O2 Flow Rate FiO2 07/02/16 05:31 Nasal Cannula 2.00 Humidified 07/02/16 00:00 98.6 86 18 147/70 98 07/01/16 21:36 21 07/01/16 21:21 Nasal Cannula 2.00 Humidified 07/01/16 20:00 98.6 56 18 144/68 95 07/01/16 16:00 99.6 81 20 138/75 94 07/01/16 12:00 98.7 83 20 136/75 93 I/O 07/01/16 07/01/16 07/01/16 07/02/16 07/02/16 07/02/16 07:00 15:00 23:00 07:00 15:00 23:00 Intake Total 0 ml 940 ml 240 ml 480 ml Output Total 1850 ml 1200 ml 1900 ml Balance 0 ml -910 ml -960 ml -1420 ml Intake Oral 840 ml 240 ml 480 ml IV Total 0 ml 100 ml 0 ml 0 ml Output Urine Total 1850 ml 1200 ml 1900 ml # Bowel Movements 0 0 Result Diagram: 07/02/16 0650 07/02/16 0650 Imaging Last Impressions Renal Scan w/Medication NM 06/26/16 0000 Signed Impressions: Service Date/Time: Sunday, June 26, 2016 09:19 - CONCLUSION: Findings consistent with high-grade bilateral obstructive uropathy Franko Paez MD Renal Ultrasound 06/23/16 0000 Signed Impressions: Service Date/Time: Thursday, June 23, 2016 07:51 - CONCLUSION: 1. Moderate bilateral hydronephrosis of unknown etiology. Rivas catheter present. 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 Franko Paez MD Breast Ultrasound 06/22/16 0000 Signed Impressions: Service Date/Time: June 13:18 - CONCLUSION: 1. Phlegmonous mass in the right breast associated with edema and inflammation. No drainable fluid collections. Dillon Sharma MD Objective Remarks GENERAL: Well-developed, well-nourished, in no acute distress. Alert and orientated. HEENT: Head is normocephalic without any lesions or masses noted. Facial features are symmetric. Eyes: Extraocular muscles are intact. Conjunctivae were clear. NECK: Supple without any masses. Trachea midline no deviation. No JVD, CARDIAC: Regular rhythm, regular rate. S1/S2 are heard. No murmurs gallops or rubs. LUNGS: Clear to auscultation bilaterally. No wheeze, rhonchi or rales. No use of accessory muscles on inspiration or expiration. ABDOMEN: Soft, nontender. Nondistended. Bowel sounds heard in all 4 quadrants. No organomegaly or masses. Negative rebound, negative guarding EXTREMITIES: No edema, pulses are equal bilaterally. No cyanosis or clubbing NEUROLOGY: Mood and affect appear appropriate. Cranial nerves II through XII grossly intact. Moving all extremities, speech is clear RIGHT BREAST: Patient still have significant erythema, mainly tissue. However erythema is receding from the previously marked line. Fluctuating mass s/p I&D , packed : large mass outside of vaginal introitus. 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 Cultures continue to follow cultures. Continue vancomycin cefepime IV ID consult, appreciate recommendations. R breast/chest wall cellulitis, abscess -Large developing abscess with cellulitis of the left breast and axilla. Continue IV antibiotics of vancomycin and cefepime. Gen. Surgery consulted. S/P I&D by gen surgery 06/29/16 at bedside, with copious pus, cultures sent. S/P Re &D by gen surgery 07/01/16 at bedside, with copious drainage Leukocytosis improving Wound cx with staph aureus, ID following for recommendations. -UTI, patient with chronic hydronephrosis due to pelvic prolapse.ABX as above . Ucx with E Coli and Klebsiella Ozaenae. -History of opioid addiction on methadone maintenance therapy, denies any history of IV drug abuse. Resumed her home methadone dose which the ED nurse confirmed with the methadone clinic. -Leukocytosis. Likely secondary to sepsis, infection. Continue monitor CBC -Acute renal failure on top of chronic kidney disease. Unknown baseline creatinine. Continue Rivas, continue IV fluids normal saline. Renal ultrasound indicates bilateral hydronephrosis. Consulted urology, Consulted nephrology. Patient has mechanical obstruction 2/2 prolapse. Inside Sales Recruiter following, had pessary placed 06/27, however needs further adjustments. To follow up as OP with simulation specialist. -Hypertension - resume Norvasc. -Hypokalemia. Continue monitor and replete as needed -Tobacco use. Cessation recommended. -Vit D deficiency Vit D of 6, Start Ergocalciferol -Hypoglycemia , on Hypoglycemic protocol -DVT prophylaxis with Lovenox. Per urology Dr. 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 Dr. Bowling does not treat that. Discussed with Dr Wang nephrology. Says she needs urology as inpatient as obstruction as upstream and rivas is not helping. Reconsult urology for further evaluation. Discussed with Dr Rich uro/biodiesel product manager specialist and he evaluated the patient . Had 2 #[address]. Plan to f/u as OP for custom pessary. Plan for colpocleisis as OP per Dr Rich if need. Also patient to follow up with Dr Jonathon Madrigal urology as OP. [place] when improved and cleared by consultants. S/P I&D 06/29/16 of right breast abscess by surgical team. Also ID consulted for abx at [place] Continue to monitor kidney function, improving. Problem Qualifiers (1) Hydronephrosis: Qualified Code: N13.39 - Other hydronephrosis (2) Bladder infection, acute: Qualified Code: N30.00 - Acute cystitis without hematuria (3) Acute renal failure: Qualified Code: N17.9 - Acute renal failure, unspecified acute renal failure type Jen Silva MD Jul 02, 2016 10:09
[2016-07-02 10:51] LABS: BANDS 6 % (0-6); EOSINOPHILS 2 % (0-4); METAMYELOCYTES 3 % (0-1); NEUTROPHIL # MANUAL DIFF 10.8 TH/MM3 (1.8-7.7); POLYS (SEG NEUTROPHILS) 74 % (16-70); WBC DIFF SAMPLE 100
[2016-07-02 10:52] LABS: PLATELET ESTIMATE SMEAR HIGH (NORMAL); PLATELET MORPHOLOGY NORMAL (NORMAL); SCAN/DIFF FINAL DIFF MANUAL; TOXIC GRANULATION 2+ (NORMAL)
[2016-07-02 12:00] VITALS: BP 140/78; PULSE 99; RESP 17; TEMP 98.5; O2SAT 95
--- NOTE | 2016-07-02 12:48 | HHI.PR ---
Subjective Subjective Notes No complaints; reports swelling improved on breast since Dr. Dale's drainage at bedside yesterday Objective Vitals/I&O Vital Signs Date Time Temp Pulse Resp B/P Pulse Ox O2 Delivery O2 Flow Rate FiO2 07/02/16 08:50 Nasal Cannula 2.00 21 Humidified 07/02/16 00:00 98.6 86 18 147/70 98 Labs Laboratory Tests Test 07/02/16 06:50 White Blood Count 13.0 Red Blood Count 3.37 Hemoglobin 9.7 Hematocrit 30.1 Mean Corpuscular Volume 89.3 Mean Corpuscular Hemoglobin 28.9 Mean Corpuscular Hemoglobin 32.3 Concent Red Cell Distribution Width 14.9 Platelet Count 506 Mean Platelet Volume 8.1 Neutrophils (%) (Auto) 80.7 Lymphocytes (%) (Auto) 11.2 Monocytes (%) (Auto) 5.7 Eosinophils (%) (Auto) 1.8 Basophils (%) (Auto) 0.6 Neutrophils # (Auto) 10.5 Lymphocytes # (Auto) 1.4 Monocytes # (Auto) 0.7 Eosinophils # (Auto) 0.2 Basophils # (Auto) 0.1 CBC Comment AUTO DIFF Differential Total Cells 100 Counted Neutrophils % (Manual) 74 Band Neutrophils % 6 Lymphocytes % 13 Monocytes % 2 Eosinophils % 2 Neutrophils # (Manual) 10.8 Metamyelocytes 3 Differential Comment FINAL DIFF MANUAL Toxic Granulation 2+ Platelet Estimate HIGH Platelet Morphology Comment NORMAL Sodium Level 141 Potassium Level 3.8 Chloride Level 103 Carbon Dioxide Level 26.4 Anion Gap 12 Blood Urea Nitrogen 49 Creatinine 2.54 Estimat Glomerular Filtration 19 Rate Random Glucose 81 Calcium Level 8.8 Date/Time Procedure Status Source Growth 06/29/16 18:19 Gram Stain - Final Complete Wound Breast 06/29/16 18:19 Wound Culture - Final Complete Staphylococcus Aureus 06/29/16 13:51 Urine Culture - Final Complete Urine Catheterized Urine NO GROWTH IN 48 HOURS. Lungs: Clear Narrative Exam Upper inner arm with no erythema Axilla soft with resolving erythema and no induration. Lateral breast with some erythema and minimal induration, no fluctuance Three areas with packing removed with some purulence on bandages A/P Assessment and Plan Assessment and Plan 66 year old female with RIGHT axillary/chest wall abscess Wounds cleaned with peroxide and repacked with 1/2" iodoform x 3 Area of induration is greatly improved over the past week. Plan: BID dressing changes with iodoform; OK to clean with peroxide on cotton swab before repacking. Will continue to follow. Albert Villarreal MD Jul 02, 2016 12:48
[2016-07-02] MEDS: CEFEPIME INJ 2,000 MG in SODIUM CHLORIDE 0.9% INJ 100 ML IV SCH (13:11)
[2016-07-02 16:00] VITALS: BP 127/74; PULSE 83; RESP 17; TEMP 99.2; O2SAT 94
[2016-07-02 20:00] VITALS: BP 141/69; PULSE 77; RESP 18; TEMP 98.8; O2SAT 95
[2016-07-02] MEDS: TEMAZEPAM 15 MG CAP PO PRN (22:14)
[2016-07-03] VITALS: BP 133/73; PULSE 77; RESP 19; TEMP 98.6; O2SAT 95
[2016-07-03] MEDS: SODIUM BICARBONATE 650 MG TAB PO SCH ×2 (04:45→13:38)
[2016-07-03] MEDS: DOCUSATE SODIUM 100 MG CAP PO SCH (04:45)
[2016-07-03] MEDS: ACETAMINOPHEN 325 MG TAB PO PRN (04:46)
[2016-07-03 05:23] LABS: BASOPHIL # 0.1 TH/MM3 (0-0.2); EOSINOPHIL # 0.3 TH/MM3 (0-0.4); EOSINOPHIL % 2.9 % (0.0-4.0); HEMATOCRIT 26.2 % (35.0-46.0); LYMPH % 12.2 % (9.0-44.0); LYMPHOCYTE # 1.5 TH/MM3 (1.0-4.8); MEAN CELL VOLUME 89.8 FL (80.0-100.0); MEAN CORPUSCULAR HEMOGLOBIN 29.2 PG (27.0-34.0); MEAN CORPUSCULAR HGB CONC 32.6 % (32.0-36.0); MONO % 8.8 % (0.0-8.0); NEUT % 75.1 % (16.0-70.0); PLATELET COUNT 490 TH/MM3 (150-450); RED BLOOD COUNT 2.92 MIL/MM3 (4.00-5.30); RED CELL DISTRIBUTION WIDTH 14.9 % (11.6-17.2); WHITE BLOOD COUNT 12.1 TH/MM3 (4.0-11.0)
[2016-07-03 05:31] LABS: BICARBONATE 26.9 MEQ/L (21.0-32.0); HEMO FLAGS AUTO DIFF; POTASSIUM 3.9 MEQ/L (3.5-5.1)
[2016-07-03 07:07] LABS: BANDS 1 % (0-6); BASOPHILS 2 % (0-2); EOSINOPHILS 4 % (0-4); METAMYELOCYTES 3 % (0-1); MYELOCYTES 1 % (0-0); NEUTROPHIL # MANUAL DIFF 9.7 TH/MM3 (1.8-7.7); POLYS (SEG NEUTROPHILS) 75 % (16-70); WBC DIFF SAMPLE 100
[2016-07-03 07:08] LABS: PLATELET ESTIMATE SMEAR NORMAL (NORMAL); PLATELET MORPHOLOGY NORMAL (NORMAL); SCAN/DIFF FINAL DIFF MANUAL
[2016-07-03 08:00] VITALS: BP 140/69; PULSE 71; RESP 18; TEMP 98.3; O2SAT 95
[2016-07-03] MEDS ORDERED: CEPH-460 PO (08:10)
[2016-07-03] MEDS ORDERED: DRIS50002 PO (08:12)
--- NOTE | 2016-07-03 08:17 | HHI.DS ---
Discharge Summary Admission Date Jun 22, 2016 at 14:28 Discharge Date: Jul 03, 2016 Admitting Diagnosis severe sepsis, right breast cellulitis, acute renal failure (1) Hydronephrosis ICD Code: N13.30 Diagnosis: Principal (2) Chronic renal failure ICD Code: N18.9 Diagnosis: Principal (3) Bladder infection, acute ICD Code: N30.00 Diagnosis: Principal (4) Female bladder prolapse ICD Code: N81.10 Diagnosis: Principal (5) Cellulitis of female breast ICD Code: N61.0 Diagnosis: Principal (6) Acute renal failure ICD Code: N17.9 Diagnosis: Principal (7) Phlegmonous cellulitis ICD Code: L02.91 Diagnosis: Principal Procedures S/P I&D by gen surgery 06/29/16 at bedside, with copious pus, cultures sent. S/P Re &D by gen surgery 07/01/16 at bedside, with copious drainage Brief History - From Admission This is a 66 year-old female with past medical history of hypertension and chronic kidney disease who presents to the ER today complaining of right axilla infection which started last week. She went to go see her primary care provider Dr. Contreras who prescribed her doxycycline. However the redness and pain began to spread. She denies noting any fever or chills. The patient states she had not seen a primary care physician for years until she recently established with Dr. Contreras. He diagnosed her with hypertension and chronic kidney disease. She is not sure what her baseline creatinine is but states that she was told "3." The patient does note that she has been urinating less frequently over the past several days. She denies dysuria. The patient does take methadone 110 mg daily which she gets at the methadone clinic. She is on this for treatment of her previous pain pill addiction. She denies history of injecting IV drugs. In the emergency department she was found to have a white blood cell count of 30 ,000 with left shift. She underwent an ultrasound of the right breast which showed a phlegmonous mass associated with edema and inflammation but no drainable fluid collections. She was afebrile and not tachycardic. Lactic acid was not elevated. CBC/BMP: 07/03/16 0336 07/03/16 0336 Significant Findings Laboratory Tests Test 07/01/16 07/02/16 07/03/16 05:15 06:50 03:36 White Blood Count 12.5 TH/MM3 13.0 TH/MM3 12.1 TH/MM3 (4.0-11.0) (4.0-11.0) (4.0-11.0) Red Blood Count 3.12 MIL/MM3 3.37 MIL/MM3 2.92 MIL/MM3 (4.00-5.30) (4.00-5.30) (4.00-5.30) Hemoglobin 9.3 GM/DL 9.7 GM/DL 8.5 GM/DL (11.6-15.3) (11.6-15.3) (11.6-15.3) Hematocrit 28.1 % 30.1 % 26.2 % (35.0-46.0) (35.0-46.0) (35.0-46.0) Neutrophils (%) (Auto) 79.4 % 80.7 % 75.1 % (16.0-70.0) (16.0-70.0) (16.0-70.0) Neutrophils # (Auto) 9.9 TH/MM3 10.5 TH/MM3 9.0 TH/MM3 (1.8-7.7) (1.8-7.7) (1.8-7.7) Neutrophils % (Manual) 75 % (16-70) 74 % (16-70) 75 % (16-70) Band Neutrophils % 10 % (0-6) Lymphocytes % 6 % (9-44) Neutrophils # (Manual) 10.9 TH/MM3 10.8 TH/MM3 9.7 TH/MM3 (1.8-7.7) (1.8-7.7) (1.8-7.7) Metamyelocytes 2 % (0-1) 3 % (0-1) 3 % (0-1) Chloride Level 108 MEQ/L (98-107) Blood Urea Nitrogen 54 MG/DL (7-18) 49 MG/DL (7-18) 52 MG/DL (7-18) Creatinine 2.63 MG/DL 2.54 MG/DL 2.65 MG/DL (0.50-1.00) (0.50-1.00) (0.50-1.00) Estimat Glomerular Filtration 18 ML/MIN (>89) 19 ML/MIN (>89) 18 ML/MIN (>89) Rate Platelet Count 506 TH/MM3 490 TH/MM3 (150-450) (150-450) Toxic Granulation 2+ (NORMAL) Platelet Estimate HIGH (NORMAL) Monocytes (%) (Auto) 8.8 % (0.0-8.0) Monocytes # (Auto) 1.1 TH/MM3 (0-0.9) Myelocytes 1 % (0-0) Random Glucose 70 MG/DL (74-106) Imaging Last Impressions Renal Scan w/Medication NM 06/26/16 0000 Signed Impressions: Service Date/Time: Sunday, June 26, 2016 09:19 - CONCLUSION: Findings consistent with high-grade bilateral obstructive uropathy Franko Paez MD Renal Ultrasound 06/23/16 0000 Signed Impressions: Service Date/Time: Thursday, June 23, 2016 07:51 - CONCLUSION: 1. Moderate bilateral hydronephrosis of unknown etiology. Rivas catheter present. 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 Franko Paez MD Breast Ultrasound 06/22/16 0000 Signed Impressions: Service Date/Time: June 13:18 - CONCLUSION: 1. Phlegmonous mass in the right breast associated with edema and inflammation. No drainable fluid collections. Dillon Sharma MD PE at Discharge GENERAL: Well-developed, well-nourished, in no acute distress. Alert and orientated. HEENT: Head is normocephalic without any lesions or masses noted. Facial features are symmetric. Eyes: Extraocular muscles are intact. Conjunctivae were clear. NECK: Supple without any masses. Trachea midline no deviation. No JVD, CARDIAC: Regular rhythm, regular rate. S1/S2 are heard. No murmurs gallops or rubs. LUNGS: Clear to auscultation bilaterally. No wheeze, rhonchi or rales. No use of accessory muscles on inspiration or expiration. ABDOMEN: Soft, nontender. Nondistended. Bowel sounds heard in all 4 quadrants. No organomegaly or masses. Negative rebound, negative guarding EXTREMITIES: No edema, pulses are equal bilaterally. No cyanosis or clubbing NEUROLOGY: Mood and affect appear appropriate. Cranial nerves II through XII grossly intact. Moving all extremities, speech is clear RIGHT BREAST: Patient still have significant erythema, mainly tissue. However erythema is receding from the previously marked line. Fluctuating mass s/p I&D , packed : large mass outside of vaginal introitus. Pt update on day of discharge Feels much better today. No fevers or chills. no n/v/d/c. Patient feels comfortable to go home. She is refusing going to SNF. Hospital Course -Sepsis: Patient met criteria on admission with leukocytosis, tachycardia, right breast cellulitis and urine tract infection. Cultures continue to follow cultures. Continue vancomycin cefepime IV ID consult, appreciate recommendations. R breast/chest wall cellulitis, abscess -Large developing abscess with cellulitis of the left breast and axilla. Continue IV antibiotics of vancomycin and cefepime. Gen. Surgery consulted. S/P I&D by gen surgery 06/29/16 at bedside, with copious pus, cultures sent. S/P Re &D by gen surgery 07/01/16 at bedside, with copious drainage Leukocytosis improving Wound cx with staph aureus, ID following for recommendations. -UTI, patient with chronic hydronephrosis due to pelvic prolapse.ABX as above . Ucx with E Coli and Klebsiella Ozaenae. -History of opioid addiction on methadone maintenance therapy, denies any history of IV drug abuse. Resumed her home methadone dose which the ED nurse confirmed with the methadone clinic. -Leukocytosis. Likely secondary to sepsis, infection. Continue monitor CBC -Acute renal failure on top of chronic kidney disease. Unknown baseline creatinine. Continue Rivas, continue IV fluids normal saline. Renal ultrasound indicates bilateral hydronephrosis. Consulted urology, Consulted nephrology. Patient has mechanical obstruction 2/2 prolapse. Rim Fire Priming Operator following, had pessary placed 06/27, however needs further adjustments. To follow up as OP with machine stripper cutter. -Hypertension - resume Norvasc. -Hypokalemia. Continue monitor and replete as needed -Tobacco use. Cessation recommended. -Vit D deficiency Vit D of 6, Start Ergocalciferol -Hypoglycemia , on Hypoglycemic protocol -DVT prophylaxis with Lovenox. Per urology Dr. 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 Dr. Bowling does not treat that. Discussed with Dr Wang nephrology. Says she needs urology as inpatient as obstruction as upstream and rivas is not helping. Reconsult urology for further evaluation. Discussed with Dr Rich uro/store shopper specialist and he evaluated the patient . Had [address] Plan to f/u as OP for custom pessary. Plan for colpocleisis as OP per Dr Rich if need. Also patient to follow up with Dr Jonathon Madrigal urology as OP. DC when improved and cleared by consultants. S/P I&D 06/29/16 of right breast abscess by surgical team. Also ID consulted for abx at DC Continue to monitor kidney function, improving. Patient was treated with antibiotics. Had I&D x2 . Has rivas placed, continue at DC, to follow up with urology as OP. Also has 2 of #7 pessaries placed and fell out, plan for custom made pessary, to follow up as OP with Dr Rich ob/ store shopper. Discharged in fairly good condition to follow up as OP with PCP and consultants. Pt Condition on Discharge: Fair Discharge Disposition: Disch w/ Home Health Serv Discharge Time: > 30 minutes Discharge Instructions DIET: Follow Instructions for: Heart Healthy Diet Activities you can perform: Regular-No Restrictions Follow up Referrals: Nephrology - 1 Week with Jacoby Wang MD CHURCH ORGANIST with Nikolas Rich MD PCP Follow-up - 3-5 Days SNF/SNF/ with [facility] Surgical - 3-5 Days with Darren Dale MD Urology - 1 Week with Sudhakar Diaz MD New Medications: Cephalexin (Keflex) 500 Mg Cap 500 MG PO Q8H Infection #42 Ref 0 CAP Ergocalciferol (Drisdol) 50,000 Unit Cap 06346 UNITS PO Q7D vit D deficiency #7 CAP Continued Medications: Amlodipine (Amlodipine) 5 Mg Tab 5 MG PO DAILY Blood Pressure Management #30 Ref 0 TAB Methadone (Methadone) 40 Mg Tab 110 MG PO DAILY Ref 0 TAB Jen Silva MD Jul 03, 2016 08:17 Jen Silva MD Jul 03, 2016 08:17
[2016-07-03] MEDS: amLODIPine BESYLATE 5 MG TAB PO SCH (08:32)
[2016-07-03] MEDS: SODIUM CHLORIDE 0.9% FLUSH 5 ML FLUSH FLUSH SCH (08:32)
[2016-07-03] MEDS: CHOLECALCIFEROL (VIT D3) 1000 UNIT TAB PO SCH (08:32)
[2016-07-03] MEDS: METHADONE HCL 10 MG TAB PO SCH (08:34)
--- NOTE | 2016-07-03 09:35 | HHI.IDPN ---
Subjective Subjective Remarks Notes reviewed Temps ok Doing well, feels better Had 2 I and D R breast abscess - C/S MSSA WBC down to 12 Repeat UA improving Creatinine has plateau at 2.5 D/W Dr Silva For D/C today Antibiotics Cefepime Vancomycin Lines PIV Past Medical History Hypertension Chronic kidney disease History of opioid addiction on methadone maintenance therapy , all vaginal deliveries Allergies: Coded Allergies: No Known Allergies (Verified , 06/22/16) Objective . Vital Signs Date Time Temp Pulse Resp B/P Pulse Ox O2 Delivery O2 Flow Rate FiO2 07/03/16 08:00 98.3 71 18 140/69 95 07/03/16 00:00 98.6 77 19 133/73 95 07/02/16 21:34 Nasal Cannula 2.00 Humidified 07/02/16 20:00 98.8 77 18 141/69 95 07/02/16 16:00 99.2 83 17 127/74 94 07/02/16 12:00 98.5 99 17 140/78 95 07/02/16 07/02/16 07/03/16 15:00 23:00 07:00 Intake Total 700 ml 360 ml 360 ml Output Total 600 ml 1900 ml 1000 ml Balance 100 ml -1540 ml -640 ml Intake Oral 600 ml 360 ml 360 ml IV Total 100 ml 0 ml 0 ml Output Urine Total 600 ml 1900 ml 1000 ml # Bowel Movements 1 0 0 . Laboratory Tests Test 07/02/16 07/03/16 06:50 03:36 White Blood Count 13.0 TH/MM3 12.1 TH/MM3 Red Blood Count 3.37 MIL/MM3 2.92 MIL/MM3 Hemoglobin 9.7 GM/DL 8.5 GM/DL Hematocrit 30.1 % 26.2 % Mean Corpuscular Volume 89.3 FL 89.8 FL Mean Corpuscular Hemoglobin 28.9 PG 29.2 PG Mean Corpuscular Hemoglobin 32.3 % 32.6 % Concent Red Cell Distribution Width 14.9 % 14.9 % Platelet Count 506 TH/MM3 490 TH/MM3 Mean Platelet Volume 8.1 FL 8.3 FL Neutrophils (%) (Auto) 80.7 % 75.1 % Lymphocytes (%) (Auto) 11.2 % 12.2 % Monocytes (%) (Auto) 5.7 % 8.8 % Eosinophils (%) (Auto) 1.8 % 2.9 % Basophils (%) (Auto) 0.6 % 1.0 % Neutrophils # (Auto) 10.5 TH/MM3 9.0 TH/MM3 Lymphocytes # (Auto) 1.4 TH/MM3 1.5 TH/MM3 Monocytes # (Auto) 0.7 TH/MM3 1.1 TH/MM3 Eosinophils # (Auto) 0.2 TH/MM3 0.3 TH/MM3 Basophils # (Auto) 0.1 TH/MM3 0.1 TH/MM3 CBC Comment AUTO DIFF AUTO DIFF Differential Total Cells 100 100 Counted Neutrophils % (Manual) 74 % 75 % Band Neutrophils % 6 % 1 % Lymphocytes % 13 % 10 % Monocytes % 2 % 4 % Eosinophils % 2 % 4 % Neutrophils # (Manual) 10.8 TH/MM3 9.7 TH/MM3 Metamyelocytes 3 % 3 % Differential Comment FINAL DIFF FINAL DIFF MANUAL MANUAL Toxic Granulation 2+ Platelet Estimate HIGH NORMAL Platelet Morphology Comment NORMAL NORMAL Basophils % 2 % Myelocytes 1 % Laboratory Tests Test 07/02/16 07/03/16 06:50 03:36 Sodium Level 141 MEQ/L 140 MEQ/L Potassium Level 3.8 MEQ/L 3.9 MEQ/L Chloride Level 103 MEQ/L 104 MEQ/L Carbon Dioxide Level 26.4 MEQ/L 26.9 MEQ/L Anion Gap 12 MEQ/L 9 MEQ/L Blood Urea Nitrogen 49 MG/DL 52 MG/DL Creatinine 2.54 MG/DL 2.65 MG/DL Estimat Glomerular Filtration 19 ML/MIN 18 ML/MIN Rate Random Glucose 81 MG/DL 70 MG/DL Calcium Level 8.8 MG/DL 8.6 MG/DL Imaging Renal Scan w/Medication NM 06/26/16 0000 Signed Impressions: Service Date/Time: Sunday, June 26, 2016 09:19 - CONCLUSION: Findings consistent with high-grade bilateral obstructive uropathy Franko Paez MD Renal Ultrasound 06/23/16 0000 Signed Impressions: Service Date/Time: Thursday, June 23, 2016 07:51 - CONCLUSION: 1. Moderate bilateral hydronephrosis of unknown etiology. Cárdenas catheter present. 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 Franko Paez MD Breast Ultrasound 06/22/16 0000 Signed Impressions: Service Date/Time: June 13:18 - CONCLUSION: 1. Phlegmonous mass in the right breast associated with edema and inflammation. No drainable fluid collections. Dillon Sharma MD Physical Exam GENERAL: awake and alert, NAD SKIN: Cool and dry. No generalized rash, no ecchymosis. HEENT: [place] conjunctivae. No scleral icterus. Moist oral mucosa. NECK: Trachea midline. No JVD or lymphadenopathy. Supple, nontender, no meningeal signs. CARDIOVASCULAR: Regular rate and rhythm without murmurs, gallops, or rubs. R breast has 3 areas of packing, redness and induration markedly improved RESPIRATORY: Clear to auscultation. No wheezes, rales, or rhonchi. GASTROINTESTINAL: Abdomen soft, non-tender, nondistended. Bowel sounds are present and normoactive. MUSCULOSKELETAL: Extremities without clubbing, cyanosis, or edema. No calf tenderness. NEUROLOGICAL: Grossly non-focal PSYCH: Calm and cooperative LINE: PIV with no evidence of infection : Cárdenas in place with clear urine Assessment & Plan Remarks IMPRESSION R breast/chest wall cellulitis, abscess - S/P I and D - C/S MSSA UTI, patient with chronic hydronephrosis due to pelvic prolapse Persistent leukocytosis, due to above Renal failure, non-oliguric due to chronic hydronephrosis from the pelvic prolapse RECOMMENDATION Ok to D/C home on Keflex 500 TID x 14 days Wound care per surgery Discharge meds reviewed D/W Dr Silva D/W RN Explained plan to patient Ronda Toledo MD Jul 03, 2016 09:35
[2016-07-03] MEDS: CEFEPIME INJ 2,000 MG in SODIUM CHLORIDE 0.9% INJ 100 ML IV SCH (11:57)
[2016-07-03 12:00] VITALS: BP 132/73; PULSE 95; RESP 17; TEMP 98.3; O2SAT 99
[2016-07-03] MEDS ORDERED: VANCOMYCIN 1,500 MG/NS 500 ML IV ONE ×2 (13:00)
--- NOTE | 2016-07-03 16:03 | HHI.PR ---
Subjective Subjective Notes Resting in bed Ready to go home Objective Vitals/I&O Vital Signs Date Time Temp Pulse Resp B/P Pulse Ox O2 Delivery O2 Flow Rate FiO2 07/03/16 12:00 98.3 95 17 132/73 99 07/03/16 08:36 Room Air 07/02/16 21:34 2.00 07/02/16 08:50 21 Labs Laboratory Tests Test 07/03/16 03:36 White Blood Count 12.1 Red Blood Count 2.92 Hemoglobin 8.5 Hematocrit 26.2 Mean Corpuscular Volume 89.8 Mean Corpuscular Hemoglobin 29.2 Mean Corpuscular Hemoglobin 32.6 Concent Red Cell Distribution Width 14.9 Platelet Count 490 Mean Platelet Volume 8.3 Neutrophils (%) (Auto) 75.1 Lymphocytes (%) (Auto) 12.2 Monocytes (%) (Auto) 8.8 Eosinophils (%) (Auto) 2.9 Basophils (%) (Auto) 1.0 Neutrophils # (Auto) 9.0 Lymphocytes # (Auto) 1.5 Monocytes # (Auto) 1.1 Eosinophils # (Auto) 0.3 Basophils # (Auto) 0.1 CBC Comment AUTO DIFF Differential Total Cells 100 Counted Neutrophils % (Manual) 75 Band Neutrophils % 1 Lymphocytes % 10 Monocytes % 4 Eosinophils % 4 Basophils % 2 Neutrophils # (Manual) 9.7 Metamyelocytes 3 Myelocytes 1 Differential Comment FINAL DIFF MANUAL Platelet Estimate NORMAL Platelet Morphology Comment NORMAL Sodium Level 140 Potassium Level 3.9 Chloride Level 104 Carbon Dioxide Level 26.9 Anion Gap 9 Blood Urea Nitrogen 52 Creatinine 2.65 Estimat Glomerular Filtration 18 Rate Random Glucose 70 Calcium Level 8.6 Random Vancomycin Level 12.3 Date/Time Procedure Status Source Growth 06/29/16 18:19 Gram Stain - Final Complete Wound Breast 06/29/16 18:19 Wound Culture - Final Complete Staphylococcus Aureus 06/29/16 13:51 Urine Culture - Final Complete Urine Catheterized Urine NO GROWTH IN 48 HOURS. Cardiovascular: Regular Lungs: Clear Abdomen: Non-distended, Non-tender Extremities: Other (see below ) Narrative Exam RIGHT axillary/chest wall abscess s/p I&D----packed recently by MARINE Thompson A/P Assessment and Plan 66 year old female with RIGHT axillary/chest wall abscess -S/p I&D of RIGHT axillary abscess -Continue packing BID -Home today -Case management has already arranged [facility] -Follow up in the office next week with Dr. Coretz -MARINE Thompson at bedside Jessica Manrique Jul 03, 2016 16:03
--- NOTE | 2016-07-05 09:05 | MR ---
cc: DARREN DALE MD DATE: 07/01/2016 PREOPERATIVE DIAGNOSIS Right breast abscess. POSTOPERATIVE DIAGNOSIS Right breast abscess. PROCEDURE PERFORMED Incision and drainage of right breast abscess at bedside. SURGEON Dr. Darren Dale. SPINNING ROOM WORKER None. ANESTHESIA 1% lidocaine 8 ccs. ESTIMATED BLOOD LOSS 2 ccs. DRAINS None. COMPLICATIONS None. WOUND CLASSIFICATION Dirty, infected. INDICATION The patient presented with complaints of swelling and pain, right breast abscess. She underwent bedside debridement and noted to have continued purulent, significant amount of drainage. Discussion to undergo operative procedure, however, the patient insisted on bedside procedure. Discussed in detail with the patient who stated understanding and agreed. PROCEDURE IN DETAIL The patient was prepped and draped in usual sterile fashion, after time-out was done, injection of local anesthetic 8 ccs around previously I&D incision sites. Incision was extended both superior and inferior. Expression of significant amount of purulent drainage was done. Another counter incision was made and approximately 4 cm away had another fluctuant area. There was noted be again significant purulent drainage from this site as well. Flush irrigations were used to thoroughly irrigate the abscess cavity. Hemostat was used to minimally break up some loculations. Next, the incisions were packed with 4x4s. Next, sterile dressings including 4x4s were placed and tape was placed. The patient tolerated the procedure. Darren Dale MD LSN/TLL /5:19 PM /9:02 AM
[2016-07-25] MEDS ORDERED: LISI10TA3 PO (14:12)
[2016-07-25] MEDS ORDERED: METH10CO4 PO (14:12)
[2016-08-01] MEDS ORDERED: CARV12.52 PO (13:01)
[2016-08-01] MEDS ORDERED: ERGO1CAP10 PO (13:01)
[2016-08-08] MEDS ORDERED: NITR1CAP37 PO (09:44)
[2016-09-28] MEDS ORDERED: SODI650T PO (14:41)
[2016-10-03] MEDS ORDERED: TRAM50TA PO (13:02)
[2016-10-19] MEDS ORDERED: CHLO25TA2 PO (08:33)
== END 2016-07-03 16:35 | disposition home health service (06) | DRG 872 ==
LOC: PHED 11:19 → PHEDA 14:28 → PHICU 20:51 → N07A 06-23 15:37
PROVIDERS: ADMIT Hospitalist; ATTEND Hospitalist
PROC: 0T9B70Z Drainage of Bladder with Drainage Device, Via Natural or Artificial Opening (ICD-10-PCS; 2016-06-22)
PROC: 0UHG7GZ Insertion of Pessary into Vagina, Via Natural or Artificial Opening (ICD-10-PCS; 2016-06-27)
PROC: 0X940ZZ Drainage of Right Axilla, Open Approach (ICD-10-PCS; principal; 2016-06-29)
PROC: 0H9T0ZZ Drainage of Right Breast, Open Approach (ICD-10-PCS; 2016-07-01)
DX: A41.9 Sepsis, unspecified organism (principal); N17.9 Acute kidney failure, unspecified; E55.9 Vitamin D deficiency, unspecified; N13.30 Unspecified hydronephrosis; F11.20 Opioid dependence, uncomplicated; L02.411 Cutaneous abscess of right axilla; L03.313 Cellulitis of chest wall; L02.213 Cutaneous abscess of chest wall; N30.00 Acute cystitis without hematuria; N61.1 Abscess of the breast and nipple; E87.6 Hypokalemia; N18.9 Chronic kidney disease, unspecified; I12.9 Hypertensive chronic kidney disease with stage 1 through stage 4 chronic kidney disease, or unspecified chronic kidney disease; B95.61 Methicillin susceptible Staphylococcus aureus infection as the cause of diseases classified elsewhere; F17.210 Nicotine dependence, cigarettes, uncomplicated; R65.20 Severe sepsis without septic shock; N81.89 Other female genital prolapse; N81.10 Cystocele, unspecified; B96.20 Unspecified Escherichia coli [E. coli] as the cause of diseases classified elsewhere; B96.1 Klebsiella pneumoniae [K. pneumoniae] as the cause of diseases classified elsewhere; E16.2 Hypoglycemia, unspecified
CPT/HCPCS: 74176; 76642; 76775; 78708; 80048; 80053; 80069; 80202; 81001; 81050; 82306; 82570; 82948; 83605; 83735; 83883; 83970; 84156; 84165; 84166; 85007; 85027; 86038; 86160; 86403; 86803; 87040; 87070; 87077; 87086; 87147; 87186; 87205; 87340; 87641; 94620; 96365; 96375; A9539; J0692; J0696; J1650; J1940; J2543; J3370; J7030; J7040; J7050

== ENCOUNTER → 2016-10-02 | Day surgery (SDC) | payer OTHER ==
--- NOTE | 2016-09-26 12:14 | MH ---
cc: MAI SANTANA MD DATE OF ADMISSION: ADMITTING DIAGNOSIS: The patient's is 1950 and is scheduled for admission on for 10/02 for vaginal suspension, anterior manager inventory control repair the patient is a 58-year-old white female 5, para 5 status post prior hysterectomy for abdominal approach with complete vaginal prolapse. This prolapse is stage IV we have tried multiple pessaries up to a size 12 with poor result. She has significant urinary retention to the point of hydronephrosis without support and this point she has been cleared by a tso for procedure. Her creatinine has improved since she has been using various pessaries but the pessaries are not being able to be maintained in place and this necessitate surgical correction PAST MEDICAL HISTORY: Notable for hypertension. Opioid addiction. MEDICATIONS 1. Lisinopril 10 mg daily. 2. Carvedilol 12.5 mg b.i.d. 3. Methadone 10 mg daily. ALLERGIES None PAST SURGICAL HISTORY Total abdominal hysterectomy. SOCIAL HISTORY: 1. The social history opioid dependence and recovery on methadone maintence. 2. Distant history of smoking, quit 6 months ago has a 50 pack-year history. FAMILY HISTORY Contributory OBSTETRICAL HISTORY Five vaginal deliveries. GYNECOLOGIC HISTORY No STDs or abnormal Pap smears. REVIEW OF SYSTEMS As above. No chest pain, orthopnea, PND. No nausea or chills of vaginal bleeding or discharge. PHYSICAL EXAMINATION: IN GENERAL: On exam she is afebrile signs stable blood pressure 120/76, 5.10, weight 200 pounds, BMI is 20.7, blood pressure 150/80. Patient is alert and oriented in stress no sign of cognitive function depression. HEAD, EYES, EARS, NOSE, AND THROAT: Within normal limits is supple. No JVD. CHEST: The chest is clear. HEART: The heart has regular rate and rhythm. ABDOMEN: The abdomen is soft, nontender. No hepatosplenomegaly. No tenderness. PELVIS: The pelvic examination shows pop Q score Aa is 3, Ap is 3, Point C is 10, genital hiatus is 12. Perineal body is 5. Total vaginal length is 12 without a pessary in place. She has significant postvoid residual over 300 cc. Levator muscles are up 1 out of 5. Single nerve reflexes are diminished. Pelvic examination under anesthesia. EXTREMITIES: Normal skin rashes and nonfocal. No deep venous thrombosis signs. ASSESSMENT/PLAN: Patient with complete vaginal vault prolapse. I discussed operative management and treatment. She is aware of the risks, benefits, alteratives, and plan for procedure. Including damage to surrounding organs, bleeding, infection, urinary dysfunction requiring catheter or issues with new onset incontinence. Also aware of possibility of issues with dyspareunia and foreshortening of the vaginal canal. The patient has made informed choice to proceed at this point will use 2 grams antibiotic prophylaxis Ancef and DVT prophylaxis. We anticipate outpatient procedure. MD DANELLE Yuan/isaac /11:15 AM /11:39 AM MTDD
[~2016-10-02] VITALS: Ht 177.8 cm; Wt 100.4 kg
[~2016-10-02] MED LIST changes: +*morphine SULFATE 8 MG/ML PERIprocedure ONLY ONE; +ACETAMINOPHEN 1000 MG/100 ML VIAL IV ONE; +CARV12.52 PO; +CHLO25TA2 PO; +CHLORHEXIDINE GLUCONATE 2 % 1 PACK (2 CLOTHS) TOPICAL PRN; +CIPROFLOXACIN 400 MG PREMIX 200 ML ONE; -CLIN150 PO; +DEXAMETHASONE SOD PHOS 4 MG/ML VIAL ONE; +DO NOT ADM ANY ANTICOAGULANT DRUGS PRN; +ESTROGENS CONJUGATED VAG CREA 15 APPL/30 GM TUBE ONE; +FAMOTIDINE 20 MG/2 ML VIAL ONE; +FLUORESCEIN SOD 10% SOLN 500 MG/5 ML AMP ONE; +FUROSEMIDE 40 MG/4 ML VIAL ONE; +HYDROmorphone HCL PF 2 MG/ML VIAL ONE; +INSULIN HUMAN REGULAR 1,000 UNITS/10 ML VIAL SQ PRN; +LACTATED RINGER'S 1000 ML INJ 1,000 ML IV ONE; +LACTATED RINGER'S 1000 ML IV PRN; +LIDOCAINE 1%/EPINEPHrine 1:100,000 SOLN 50 ML VIAL ONE; +METH10CO4 PO; -METH40TA9 PO; +METHYLENE BLUE 10 MG/ML VIAL OTHER ONE; +METOPROLOL TARTRATE 25 MG TAB PO PRN; +MIDAZOLAM HCL 2 MG/2 ML VIAL ONE; +MORPHINE SULFATE 8 MG/ML INJ IM PRN; +NEOSTIGMINE 3 MG/3 ML SYR IV ONE; +ONDANSETRON HCL 4 MG/2 ML VIAL IV PUSH ONE; +ONDANSETRON HCL 4 MG/2 ML VIAL IV PUSH PRN; +POVIDONE IODINE 5% (ANTISEPSIS KIT) 4 APPLICATIONS EACH NARE PRN; +PROPOFOL 200 MG/20 ML AMP IV ONE; +SODI650T PO; +SODIUM CHLORID 0.9% 500 ML IV PRN; +SODIUM CHLORIDE 0.9% 20 ML VIAL ONE; +TRAM50TA PO; +ceFAZolin 2 GM PREMIX 50 ML IV SCH; +ceFAZolin 2 GM PREMIX 50 ML ONE; +fentaNYL CITRATE 250 MCG/5 ML AMP ONE; +traMADol HCL 50 MG TAB PO PRN
[2016-10-02 08:00] VITALS: BP 143/87; PULSE 58; RESP 18; TEMP 99.6; O2SAT 100
--- NOTE | 2016-10-02 10:50 | EKG ---
Date Performed: 10/02/2016 Time Performed: 09:49:42 PTAGE: 66 years EKG: Sinus rhythm NORMAL ECG NO PREVIOUS TRACING DOCTOR: Clark Alberto Interpretating Date/Time 10/02/2016 10:49:37
[2016-10-02 14:08] VITALS: BP 165/97; PULSE 78; RESP 22; TEMP 98.5; O2SAT 97
--- NOTE | 2016-10-02 14:53 | MP ---
cc: MAI SANTANA MD DATE OF SURGERY: 10/02/2016 PREOPERATIVE DIAGNOSES 1. 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 2. Urinary retention. 3. Loss of perineal body. POSTOPERATIVE DIAGNOSIS 1. 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 2. Urinary retention. 3. Loss of perineal body. PROCEDURE 1. Extensive repair of vagina, CPT code 78642, coupled with diagnosis of vaginal vault prolapse following prior hysterectomy. 2. Sphincteroplasty, CPT code 94827, coupled with diagnosis of loss of perineal body. 3. Diagnostic cystoscopy, CPT code 39093, coupled with diagnosis of urinary retention. 4. Modifier 22 secondary to severe distortion of anatomy and prolonged surgical time. SURGEON Dr. Santana ANESTHESIA General endotracheal. ESTIMATED BLOOD LOSS 100 cc URINE OUTPUT 250 cc cloudy urine. PANTOGRAPHER [place] staff x2. FLUIDS 200 cc crystalloid. FINDINGS External genitalia poorly estrogenized, complete vaginal vault prolapse. POP-Q score: Aa is +3; Ap is +3; point C is greater than 10; genital hiatus is 12; perineal body is 3. Rectal exam was unremarkable. Cystoscopy prior to procedure shows cloudy urine, no intrinsic lesions, ureteral orifices patent x2 with reduction of prolapse. Following repair: Aa is -3; Ap is -3; point C is -5; genital hiatus is 5; perineal body is 6; total vaginal length is 5. Rectal exam was normal. Cystoscopy following repair shows normal trigone, good coaptation of urethra, ureteral orifices patent x2, dome and base of bladder unremarkable. SPECIMENS Anterior, posterior and perineal vaginal mucosa. COMPLICATIONS None. DISPOSITION Recovery room stable. COUNTS Needle and sponge count correct. DRAINS Cárdenas catheter. PROPHYLAXIS Antibiotic prophylaxis: Ancef 2 grams IV (In light of her positive urine culture she also received IV Cipro 400 mg IV.) DVT prophylaxis: Sequential compression device. Timeout procedure per protocol. Documentation of complexity and prolonged time justifies the modifier for difficulty. DETAILS OF PROCEDURE The patient was taken to the operating theatre, identified, prepped and draped in a fashion appropriate for planned procedure. She was in the dorsal lithotomy position with careful attention paid to placement of legs in stirrups to avoid undue stress to sensitive neurovascular structures. Above findings noted. Neurovascular integrity documented. The most striking feature was complete vaginal vault eversion. In light of the significant distortion of anatomy, cystoscopy was performed prior to initiating repair. A 17-[place] bridge and a 70 degree scope were used. The urine was approximately 300 cc of cloudy urine. The bladder was irrigated with 1000 cc of normal saline. Repeat inspection showed no significant lesions. Ureteral orifices were patent x2 with the prolapse reduced. There were no intrinsic urethral lesions. The most striking feature as noted above was the complete vaginal vault prolapse. We performed extensive repair by denuding approximately 10 x 6 cm of the anterior and posterior vaginal mucosa imbricating the paravaginal tissues, reducing the prolapse and then supporting the apex of the vagina to the pubocervical ring. It was much more prominent anteriorly, less so posteriorly. When this was concluded we had a vaginal length of approximately 5 cm. We still had significant gaping of the introitus and loss of perineal body. There was no significant anterior sphincter appreciated. Perineoplasty and sphincteroplasty were performed in standard fashion with end-to-end type approximation and delayed absorbable suture. When this was concluded the genital hiatus was down from previously approximately 12 cm to now approximately 5 cm, and the perineal body had been brought up to approximately 6-7 cm. The rectal exam confirmed there was no damage to the rectum. In light of the patient's significant prolapse and danger to the ureters, we did perform repeat cystoscopy. The patient had received 1 cc of fluorescein dye IV. We placed a 17-[place] bridge, a 70 degree scope, documented ureteral patency bilaterally. No damage to the bladder was noted. At this point the procedure was concluded. The patient was reversed from anesthesia and taken to the recovery room in stable condition. MD DANELLE Yuan/BRISA /1:52 PM /2:26 PM
== END | disposition home or self-care (01) ==
LOC: HSDC 07:18
PROVIDERS: ATTEND Obstetrics & Gynecology Gynecology
DX: N99.3 Prolapse of vaginal vault after hysterectomy (principal); R32 Unspecified urinary incontinence; R33.9 Retention of urine, unspecified; I10 Essential (primary) hypertension; N13.30 Unspecified hydronephrosis; Z87.891 Personal history of nicotine dependence; Z90.710 Acquired absence of both cervix and uterus
CPT/HCPCS: 00902; 46750; 52000; 57265; 88302; 88305; 93005; J0131; J0690; J0744; J1100; J1170; J2250; J2270; J2405; J2710; J3010; J7120; J1940